=== PATIENT | female | born 1940 | race Hispanic/Latino ===

== ENCOUNTER 2020-01-27 01:25 | Emergency (ER) | payer MEDICARE, OTHER ==
[2020-01-27] MEDS ORDERED: SODIUM CHLORIDE 0.9% 500ML 500 ML IV ONE (02:28)
[2020-01-27 03:00] LABS: BASOPHILS % (AUTO) 0.2 % (0.0-5.0); EOSINOPHILS % (AUTO) 0.9 % (0.0-8.0); HEMATOCRIT 38.9 % (36-48); LYMPHOCYTES % (AUTO) 17.1 % (21.0-51.0); MEAN CORPUSCULAR HEMOGLOBIN 27.7 pg (27.0-33.0); MEAN CORPUSCULAR HGB CONC 32.6 g/dL (32.0-36.0); MEAN CORPUSCULAR VOLUME 84.9 fL (79-99); MONOCYTES % (AUTO) 9.1 % (3.0-13.0); NEUTROPHILS % (AUTO) 72.4 % (40.0-77.0); PLATELET COUNT (AUTO) 153 K/uL (130-400); RED BLOOD CELL COUNT(AUTO) 4.58 MIL/uL (4.00-5.50); RED CELL DISTRIBUTION WIDTH 14.2 % (11.0-15.5); WHITE BLOOD COUNT (AUTO) 12.7 K/uL (4.8-10.8)
[2020-01-27] MEDS ORDERED: ACETAMINOPHEN EXTRA STRENGTH 500 MG TABLET ONE (03:07)
[2020-01-27 03:17] LABS: CREATININE 1.4 mg/dL (0.5-1.5); POTASSIUM 3.4 mmol/L (3.5-5.1)
[2020-01-27 03:22] LABS: ALBUMIN 3.8 g/dL (3.5-5.0); BILIRUBIN,TOTAL 0.7 mg/dL (0.2-1.0); TOTAL PROTEIN, SERUM 7.7 g/dL (6.0-8.3)
[2020-01-27 03:36] LABS: B-TYPE NATRIURETIC PEPTIDE 826 pg/mL (0-100)
[2020-01-27 03:51] LABS: APPEARANCE,URINE SL CLOUDY (CLEAR); BILIRUBIN,URINE NEGATIVE (NEGATIVE); COLOR,URINE YELLOW (YELLOW); GLUCOSE, URINE (UA) NEGATIVE (NEGATIVE); KETONES,URINE 5 mg/dL (NEGATIVE); LEUKOCYTE ESTERASE ,URINE SMALL (NEGATIVE); NITRATE,URINE NEGATIVE (NEGATIVE); OCCULT BLOOD,URINE MODERATE (NEGATIVE); PH,URINE 5.5 (5.0-8.0); PROTEIN,URINE TRACE mg/dL (NEGATIVE); UROBILINOGEN,URINE 0.2 mg/dL (0.2-1.0)
[2020-01-27 04:12] LABS: BACTERIA,URINE Few /HPF (None Seen); RBC,URINE 0-1 /HPF (0-1)
[2020-01-27 04:38] LABS: INR 0.96 (0.85-1.15); PARTIAL THROMBOPLASTIN TIME 31.1 SEC (26.3-35.5); PROTHROMBIN TIME 10.4 SEC (9.6-11.6)
== END 2020-01-27 05:13 | disposition home or self-care (01) ==
LOC: EDH 01:25
DX: U07.1 COVID-19 (principal); R50.9 Fever, unspecified; I10 Essential (primary) hypertension
CPT/HCPCS: 36415; 71045; 80053; 81001; 82550; 83605; 83690; 83880; 84484; 85025; 85610; 85730; 87040; 87486; 87581; 87633; 87635; 87798; 87804 ×2; 93005; 99285; J7040

== ENCOUNTER 2020-02-02 17:36 | Inpatient (IN) | payer MEDICARE ==
[~2020-02-02] VITALS: Ht 160 cm; Wt 65.2 kg
[2020-02-02 18:15] LABS: BASOPHILS % (AUTO) 0.2 % (0.0-5.0); EOSINOPHILS % (AUTO) 0.1 % (0.0-8.0); HEMATOCRIT 34.4 % (36-48); LYMPHOCYTES % (AUTO) 8.1 % (21.0-51.0); MEAN CORPUSCULAR HEMOGLOBIN 28.6 pg (27.0-33.0); MEAN CORPUSCULAR HGB CONC 33.1 g/dL (32.0-36.0); MEAN CORPUSCULAR VOLUME 86.2 fL (79-99); MONOCYTES % (AUTO) 2.6 % (3.0-13.0); NEUTROPHILS % (AUTO) 87.5 % (40.0-77.0); NUCLEATED RED BLOOD CELLS 0.1 % (0.0-0.19); PLATELET COUNT (AUTO) 238 K/uL (130-400); RED BLOOD CELL COUNT(AUTO) 3.99 MIL/uL (4.00-5.50); RED CELL DISTRIBUTION WIDTH 14.8 % (11.0-15.5); WHITE BLOOD COUNT (AUTO) 18.8 K/uL (4.8-10.8)
[2020-02-02 18:28] LABS: APPEARANCE,URINE Clear (CLEAR); BILIRUBIN,URINE Negative (NEGATIVE); COLOR,URINE Dark Yellow (YELLOW); GLUCOSE, URINE (UA) Negative (NEGATIVE); KETONES,URINE Negative (NEGATIVE); LEUKOCYTE ESTERASE ,URINE Negative (NEGATIVE); NITRATE,URINE Negative (NEGATIVE); OCCULT BLOOD,URINE Trace (NEGATIVE); PROTEIN,URINE POS 2+ mg/dL (NEGATIVE)
[2020-02-02 18:39] LABS: CREATININE 1.9 mg/dL (0.5-1.5); POTASSIUM 3.3 mmol/L (3.5-5.1)
[2020-02-02 18:42] LABS: B-TYPE NATRIURETIC PEPTIDE 2410 pg/mL (0-100)
[2020-02-02 18:44] LABS: BACTERIA,URINE Few /HPF (None Seen); MUCUS,URINE Few LPF (None Seen); SQUAMOUS EPITHELIAL CELL,UR Few /HPF (0-2); WBC,URINE 0-1 /HPF (0-1)
[2020-02-02 18:50] LABS: RAPID GROUP A STREP NEGATIVE (NEGATIVE)
[2020-02-02 18:52] LABS: ALBUMIN 2.3 g/dL (3.5-5.0); BILIRUBIN,TOTAL 1.2 mg/dL (0.2-1.0); TOTAL PROTEIN, SERUM 7.1 g/dL (6.0-8.3)
[2020-02-02] MEDS ORDERED: ALBUTEROL INHALER 90MCG/INH IH PRN (19:45)
[2020-02-02] MEDS ORDERED: POTASSIUM CHLORIDE 20 MEQ ERTAB PO SCH (19:45)
[2020-02-02] MEDS ORDERED: ONDANSETRON HCL 4 MG/2 ML VIAL IV PRN (20:00)
[2020-02-02] MEDS ORDERED: DIPHENHYDRAMINE HCL 25 MG CAPSULE PO PRN (20:00)
[2020-02-02] MEDS: AZITHROMYCIN 500MG+NS 250ML 250 ML IV SCH (20:00)
[2020-02-02] MEDS ORDERED: DEXAMETHASONE 10MG/ML 1ML VIAL 6 MG in SODIUM CHLORIDE 0.9% 50 ML IV SCH (20:00)
[2020-02-02] MEDS ORDERED: ACETAMINOPHEN 325 MG TAB PO PRN ×2 (20:00)
[2020-02-02] MEDS ORDERED: NITROGLYCERIN 0.4 MG SL TAB SL PRN (20:00)
[2020-02-02 20:06] LABS: MAGNESIUM 2.8 mg/dL (1.80-2.40)
[2020-02-02 20:07] LABS: FIBRINOGEN 663 mg/dL (180-350); INR 0.95 (0.85-1.15); PROTHROMBIN TIME 10.3 SEC (9.6-11.6)
[2020-02-02] MEDS ORDERED: ASPIRIN 325MG EC TAB 325 MG TABLET.DR PO SCH (20:15)
[2020-02-02 20:39] LABS: ABG BASE EXCESS 1.3 mmol/L (-2.0-3.0); ABG HCO3 24.6 mmol/L (21.0-28.0); ABG OXYGEN SATURATION 88.8 % (95.0-99.0); ABG PCO2 35 mmHg (32-45)
[2020-02-02 20:40] LABS: CRP QUANTITATIVE 346.4 mg/L (0.00-9.0)
[2020-02-02 20:41] LABS: TROPONIN I 0.08 ng/mL (0.00-0.06)
[2020-02-02] MEDS: ZOSYN 3.375GM+NS 50ML 50 ML IV SCH (21:00)
[2020-02-02] MEDS: HEPARIN SODIUM 5000UNIT/ML 1ML VIAL SQ SCH (21:00)
[2020-02-02 21:08] LABS: D-DIMER > 10000 ng/mL (0-500)
[2020-02-02] MEDS ORDERED: 1/2 NORMAL SALINE 1,000 ML IV SCH (22:00)
[2020-02-02 23:21] LABS: TROPONIN I 0.04 ng/mL (0.00-0.06)
[2020-02-02] MEDS ORDERED: ALBUTEROL INHALER 90MCG/INH IH ONE (23:30)
[2020-02-03] MEDS ORDERED: DEXAMETHASONE 4 MG TAB PO SCH (02:15)
[2020-02-03 07:46] LABS: HEMATOCRIT 33.6 % (36-48); MEAN CORPUSCULAR HEMOGLOBIN 30.4 pg (27.0-33.0); MEAN CORPUSCULAR HGB CONC 34.5 g/dL (32.0-36.0); MEAN CORPUSCULAR VOLUME 88.2 fL (79-99); NUCLEATED RED BLOOD CELLS 0.2 % (0.0-0.19); PLATELET COUNT (AUTO) 248 K/uL (130-400); RED BLOOD CELL COUNT(AUTO) 3.81 MIL/uL (4.00-5.50); RED CELL DISTRIBUTION WIDTH 15.2 % (11.0-15.5); WHITE BLOOD COUNT (AUTO) 20.8 K/uL (4.8-10.8)
[2020-02-03 08:17] LABS: CREATINE KINASE, TOTAL 381 U/L (21-232)
[2020-02-03 08:22] LABS: ALANINE AMINOTRANSFERASE 86 U/L (12-78); ALBUMIN 2.1 g/dL (3.5-5.0); ASPARTATE AMINOTRANSFERASE 106 U/L (10-37); BILIRUBIN,TOTAL 1.4 mg/dL (0.2-1.0); CARBON DIOXIDE 29 mmol/L (21-32); CHLORIDE 111 mmol/L (101-111); CREATININE 1.5 mg/dL (0.5-1.5); GLOMERULAR FILTR. RATE CALC 36 mL/min (>60); GLUCOSE,RANDOM 150 mg/dL (70-105); LACTATE DEHYDROGENASE 632 U/L (81-234); MYOGLOBIN 200 ng/mL (10-92); POTASSIUM 3.4 mmol/L (3.5-5.1); SODIUM SERUM 149 mmol/L (136-145); TOTAL PROTEIN, SERUM 7.1 g/dL (6.0-8.3); TROPONIN I < 0.04 ng/mL (0.00-0.06); UREA NITROGEN, BLOOD 44 mg/dL (7-18)
[2020-02-03 08:29] LABS: LYMPHOCYTES % (MANUAL) 11 % (22-44); MAN.DIFF COMMENT-IMPRESSION MANUAL DIFFERENTIAL; MONOCYTES % (MANUAL) 2 % (2-9); SEGMENTED NEUTROPHILS % 87 % (40-70)
[2020-02-03 08:30] LABS: PLATELET MORPHOLOGY COMMENT ADEQUATE
[2020-02-03] MEDS ORDERED: HEPARIN SODIUM 5000UNIT/ML 1ML VIAL ONE (08:54)
[2020-02-03] MEDS ORDERED: ACETAMINOPHEN 325 MG TAB ONE (08:54)
[2020-02-03] MEDS ORDERED: PANTOPRAZOLE SODIUM 40 MG TABLET.DR ONE (08:54)
[2020-02-03] MEDS ORDERED: 1/2 NORMAL SALINE 1,000 ML IV ONE (08:55)
[2020-02-03] MEDS: ZOSYN 3.375GM+NS 50ML 50 ML IV SCH ×2 (09:00→20:54)
[2020-02-03] MEDS: HEPARIN SODIUM 5000UNIT/ML 1ML VIAL SQ SCH ×3 (09:00→20:55)
[2020-02-03] MEDS: PANTOPRAZOLE SODIUM 40 MG TABLET.DR PO SCH (09:00)
[2020-02-03] MEDS: ASPIRIN 81MG TAB.CHEW PO SCH (09:00)
[2020-02-03] MEDS ORDERED: ASPIRIN 81MG TAB.CHEW ONE (10:18)
[2020-02-03] MEDS ORDERED: DEXAMETHASONE SOD PHOSPHATE 10MG/ML 1ML VIAL ONE (10:19)
[2020-02-03] MEDS ORDERED: ZOSYN 3.375GM+NS 50ML 50 ML IV ONE (10:19)
[2020-02-03] MEDS ORDERED: AZITHROMYCIN 500MG+NS 250ML 250 ML IV ONE (10:19)
--- NOTE | 2020-02-03 11:03 | NUR ---
DCP: HOME with SON Fletcher unable to speak to pt who is in ER covid unit. Pt's son Zeus Omer [phone] provided information on pt. Per son, pt lives independently at home with him. Prior to admit pt was very active, drives, uses no DME or in home care services. PCP is Kayla Mendez. Pt's son visited from [place] and thought he had allergies and he turned out to be positive for covid. Both pt and son Zeus were exposed and also positive. DC plan is home with ivania Schulz. Addendum: 02/03/20 at 1108 by JUANA CHAVEZ Amended: Links added.
[2020-02-03] MEDS ORDERED: FUROSEMIDE 10 MG/ML 4ML VIAL IV SCH ×2 (17:30→17:45)
[2020-02-03] MEDS: METHYLPREDNISOLONE SOD SUCC 40MG/ML 1ML IVP SCH (18:29)
[2020-02-03] MEDS ORDERED: POTASSIUM CHLORIDE 20MEQ/100ML 100 ML IV PRN (19:00)
[2020-02-03] MEDS ORDERED: LIDOCAINE HCL-MPF 1% 2ML VIAL IV PRN (19:00)
[2020-02-03] MEDS ORDERED: POTASSIUM CHLORIDE 10% ELIXIR 20 MEQ/15 ML UDCUP PO PRN (19:00)
[2020-02-03 19:09] VITALS: BP 149/64
[2020-02-03] MEDS: AZITHROMYCIN 500MG+NS 250ML 250 ML IV SCH (20:00)
--- NOTE | 2020-02-03 20:00 | NUR ---
ASSESSMENT PT RESTING QUIETLY IN BED. S.O.B. AT REST, AAOX4. ASSESSMENT COMPLETED, SEE FLOW SHEET.
[2020-02-03 23:30] VITALS: BP 125/58
[2020-02-04] MEDS ORDERED: D3 PO (00:56)
[2020-02-04] MEDS ORDERED: MULT-1250 PO (00:56)
[2020-02-04] MEDS ORDERED: CYAN250014 PO (00:56)
[2020-02-04] MEDS ORDERED: AMLO5TAB9 PO (00:56)
[2020-02-04] MEDS ORDERED: ATOR10 PO (00:56)
[2020-02-04] MEDS ORDERED: FOLI0.8C PO (00:56)
[2020-02-04] MEDS ORDERED: CARV25TA PO (00:56)
[2020-02-04] MEDS ORDERED: FERR-82 PO (00:56)
[2020-02-04] MEDS: METHYLPREDNISOLONE SOD SUCC 40MG/ML 1ML IVP SCH (00:59)
[2020-02-04 03:08] VITALS: BP 130/60
[2020-02-04 04:47] LABS: BASOPHILS % (AUTO) 0.2 % (0.0-5.0); HEMATOCRIT 34.1 % (36-48); LYMPHOCYTES % (AUTO) 7.2 % (21.0-51.0); MEAN CORPUSCULAR HEMOGLOBIN 30.6 pg (27.0-33.0); MEAN CORPUSCULAR HGB CONC 34.6 g/dL (32.0-36.0); MEAN CORPUSCULAR VOLUME 88.6 fL (79-99); MONOCYTES % (AUTO) 1.8 % (3.0-13.0); NEUTROPHILS % (AUTO) 89.2 % (40.0-77.0); NUCLEATED RED BLOOD CELLS 0.1 % (0.0-0.19); PLATELET COUNT (AUTO) 274 K/uL (130-400); RED BLOOD CELL COUNT(AUTO) 3.85 MIL/uL (4.00-5.50); WHITE BLOOD COUNT (AUTO) 20.3 K/uL (4.8-10.8)
[2020-02-04 05:01] LABS: CREATININE 1.4 mg/dL (0.5-1.5)
[2020-02-04] MEDS ORDERED: RENAL DOSE IV PRN (08:15)
[2020-02-04] MEDS ORDERED: 1/2 NORMAL SALINE 1,000 ML IV SCH (08:30)
[2020-02-04 08:48] VITALS: BP 143/76
[2020-02-04] MEDS ORDERED: ENOXAPARIN SODIUM 1 MG/KG SQ SCH (09:00)
[2020-02-04] MEDS ORDERED: METHYLPREDNISOLONE SOD SUCC 40MG/ML 1ML IVP SCH (09:15)
[2020-02-04] MEDS: ZOSYN 3.375GM+NS 50ML 50 ML IV SCH (09:34)
[2020-02-04] MEDS: POTASSIUM CHLORIDE 20 MEQ ERTAB PO SCH (09:35)
[2020-02-04] MEDS: PANTOPRAZOLE SODIUM 40 MG TABLET.DR PO SCH (09:36)
[2020-02-04] MEDS: ASPIRIN 81MG TAB.CHEW PO SCH (09:36)
[2020-02-04] MEDS: ENOXAPARIN SODIUM 60 MG/0.6 ML SQ SCH ×2 (09:37→21:46)
--- NOTE | 2020-02-04 10:30 | NUR ---
DIAPER CHANGED, PLACED ON PRONE POSITION, PTS O2 SAT UP FROM 88% TO 95%. TOLERATING WITHOUT INCIDENT
[2020-02-04 12:05] VITALS: BP 142/68
[2020-02-04] MEDS: INSULIN HUMULIN R 100 UNIT/ML 3ML SQ SCH ×3 (12:10→21:49)
[2020-02-04] MEDS: METHYLPREDNISOLONE SOD SUCC 125MG/2ML VIAL IVP SCH ×2 (14:01→17:57)
[2020-02-04 16:20] VITALS: BP 133/91
[2020-02-04 19:56] VITALS: BP 128/56
[2020-02-04] MEDS: AZITHROMYCIN 500MG+NS 250ML 250 ML IV SCH (21:44)
[2020-02-05] VITALS (7 sets, daily range): BP systolic 124–150; BP diastolic 45–80
[2020-02-05] MEDS: METHYLPREDNISOLONE SOD SUCC 125MG/2ML VIAL IVP SCH ×5 (00:11→23:08)
[2020-02-05] MEDS: ZOSYN 3.375GM+NS 50ML 50 ML IV SCH ×3 (00:11→22:09)
[2020-02-05 05:14] LABS: BASOPHILS % (AUTO) 0.2 % (0.0-5.0); MEAN CORPUSCULAR HEMOGLOBIN 31.5 pg (27.0-33.0); MEAN CORPUSCULAR HGB CONC 35.5 g/dL (32.0-36.0); MEAN CORPUSCULAR VOLUME 88.8 fL (79-99); NEUTROPHILS % (AUTO) 87.7 % (40.0-77.0); NUCLEATED RED BLOOD CELLS 0.2 % (0.0-0.19); PLATELET COUNT (AUTO) 327 K/uL (130-400); RED BLOOD CELL COUNT(AUTO) 3.49 MIL/uL (4.00-5.50); RED CELL DISTRIBUTION WIDTH 14.8 % (11.0-15.5); WHITE BLOOD COUNT (AUTO) 19.1 K/uL (4.8-10.8)
[2020-02-05 05:32] LABS: BILIRUBIN,TOTAL 1.3 mg/dL (0.2-1.0); CREATININE 1.4 mg/dL (0.5-1.5); CRP QUANTITATIVE 154.8 mg/L (0.00-9.0); MAGNESIUM 2.6 mg/dL (1.80-2.40); POTASSIUM 3.6 mmol/L (3.5-5.1); TOTAL PROTEIN, SERUM 6.6 g/dL (6.0-8.3)
[2020-02-05] MEDS: INSULIN HUMULIN R 100 UNIT/ML 3ML SQ SCH ×4 (06:31→21:00)
[2020-02-05] MEDS: POTASSIUM CHLORIDE 20 MEQ ERTAB PO SCH (08:55)
[2020-02-05] MEDS: PANTOPRAZOLE SODIUM 40 MG TABLET.DR PO SCH (08:56)
[2020-02-05] MEDS: ASPIRIN 81MG TAB.CHEW PO SCH (08:56)
[2020-02-05] MEDS: ENOXAPARIN SODIUM 60 MG/0.6 ML SQ SCH ×2 (08:57→21:15)
[2020-02-05] MEDS ORDERED: PHARMACY COMMUNICATION MISC SCH ×3 (09:00→16:00)
--- NOTE | 2020-02-05 09:00 | NUR ---
ATE BREAKFAST AT 8 AM, THEN PLACED ON PRONE POSITION AT 0845. TOLERATING WITHOUT DISCOMFORT AT THIS TIME WITH INCREASED OXYGENATION LEVELS
[2020-02-05] MEDS: AZITHROMYCIN 500MG+NS 250ML 250 ML IV SCH (21:14)
--- NOTE | 2020-02-05 22:11 | NUR ---
TRANSFER PATIENT TRANSFERRED FROM ROOM 218 TO ROOM 220 VIA WHEELCHAIR. AAOX3 POSITIONED TO COMFORT IN BED. BREATHING REGULAR AND UNLABORED ON 4L NC. DENIES PAIN. NO ACUTE SIGNS OR SYMPTOMS OF DISTRESS NOTED. ORIENTED TO ROOM. CALL LIGHT IN REACH.
[2020-02-06] VITALS: BP 135/65
[2020-02-06 03:49] VITALS: BP 140/68
[2020-02-06] MEDS: INSULIN HUMULIN R 100 UNIT/ML 3ML SQ SCH ×4 (05:23→21:00)
[2020-02-06] MEDS: METHYLPREDNISOLONE SOD SUCC 125MG/2ML VIAL IVP SCH ×3 (05:23→17:28)
[2020-02-06 05:48] LABS: BASOPHILS % (AUTO) 0.2 % (0.0-5.0); HEMATOCRIT 29.5 % (36-48); LYMPHOCYTES % (AUTO) 8.6 % (21.0-51.0); MEAN CORPUSCULAR HEMOGLOBIN 34.2 pg (27.0-33.0); MEAN CORPUSCULAR HGB CONC 38.3 g/dL (32.0-36.0); MEAN CORPUSCULAR VOLUME 89.4 fL (79-99); MONOCYTES % (AUTO) 3.2 % (3.0-13.0); NEUTROPHILS % (AUTO) 86.9 % (40.0-77.0); NUCLEATED RED BLOOD CELLS 0.2 % (0.0-0.19); PLATELET COUNT (AUTO) 356 K/uL (130-400); RED CELL DISTRIBUTION WIDTH 14.6 % (11.0-15.5); WHITE BLOOD COUNT (AUTO) 12.4 K/uL (4.8-10.8)
--- NOTE | 2020-02-06 06:46 | NUR ---
patient stated she refused transfusion of plasma as she is scared to contract any diseases. Patient states " I have read that there is a possibility of getting infected like hiv" explained to the patient the benefits of transfusion but says she will refuse. will pass info to the am nurse
[2020-02-06 07:16] LABS: CREATININE 1.1 mg/dL (0.5-1.5); CRP QUANTITATIVE 72.6 mg/L (0.00-9.0); POTASSIUM 3.6 mmol/L (3.5-5.1)
[2020-02-06 07:53] VITALS: BP 128/78
[2020-02-06] MEDS: ZOSYN 3.375GM+NS 50ML 50 ML IV SCH ×2 (08:18→21:34)
[2020-02-06] MEDS: ASPIRIN 81MG TAB.CHEW PO SCH (08:20)
[2020-02-06] MEDS: PANTOPRAZOLE SODIUM 40 MG TABLET.DR PO SCH (08:20)
[2020-02-06] MEDS: AMLODIPINE BESYLATE 5 MG TAB PO SCH (08:20)
[2020-02-06] MEDS: CYANOCOBALAMIN 50 MCG PO SCH (08:21)
[2020-02-06] MEDS: FOLIC ACID 0.8 MG PO SCH (08:21)
[2020-02-06] MEDS: ENOXAPARIN SODIUM 60 MG/0.6 ML SQ SCH ×2 (08:21→21:36)
[2020-02-06 10:52] LABS: HEMOGLOBIN A1C 7.2 % (4.0-6.0)
[2020-02-06 11:33] VITALS: BP 128/68
[2020-02-06] MEDS: POTASSIUM CHLORIDE 20 MEQ ERTAB PO PRN ×2 (11:50→11:51)
[2020-02-06 17:21] VITALS: BP 137/75
[2020-02-06 20:00] VITALS: BP 139/75
[2020-02-06] MEDS: AZITHROMYCIN 500MG+NS 250ML 250 ML IV SCH (21:34)
[2020-02-07] VITALS: BP 122/68
[2020-02-07 04:00] VITALS: BP 124/69
[2020-02-07] MEDS: METHYLPREDNISOLONE SOD SUCC 125MG/2ML VIAL IVP SCH ×2 (04:27→10:24)
[2020-02-07 06:33] LABS: BASOPHILS % (AUTO) 0.1 % (0.0-5.0); HEMATOCRIT 29.8 % (36-48); LYMPHOCYTES % (AUTO) 7.8 % (21.0-51.0); MEAN CORPUSCULAR HEMOGLOBIN 29.8 pg (27.0-33.0); MEAN CORPUSCULAR HGB CONC 33.2 g/dL (32.0-36.0); MEAN CORPUSCULAR VOLUME 89.8 fL (79-99); MONOCYTES % (AUTO) 5.2 % (3.0-13.0); NEUTROPHILS % (AUTO) 86.2 % (40.0-77.0); PLATELET COUNT (AUTO) 369 K/uL (130-400); RED BLOOD CELL COUNT(AUTO) 3.32 MIL/uL (4.00-5.50); RED CELL DISTRIBUTION WIDTH 14.4 % (11.0-15.5); WHITE BLOOD COUNT (AUTO) 9.9 K/uL (4.8-10.8)
[2020-02-07 06:46] LABS: CREATININE 1.1 mg/dL (0.5-1.5); CRP QUANTITATIVE 41.8 mg/L (0.00-9.0); MAGNESIUM 2.6 mg/dL (1.80-2.40)
[2020-02-07] MEDS: INSULIN HUMULIN R 100 UNIT/ML 3ML SQ SCH ×4 (07:30→21:09)
[2020-02-07 08:26] VITALS: BP 142/75
[2020-02-07] MEDS: DEXTROSE 5%-WATER 1,000 ML IV SCH ×2 (09:00→22:39)
[2020-02-07] MEDS: FOLIC ACID 0.8 MG PO SCH ×2 (09:00→10:30)
[2020-02-07] MEDS: CYANOCOBALAMIN 50 MCG PO SCH ×2 (09:00→10:30)
[2020-02-07] MEDS: POTASSIUM CHLORIDE 20 MEQ ERTAB PO SCH (09:15)
[2020-02-07] MEDS: POTASSIUM CHLORIDE 20 MEQ ERTAB PO PRN (10:25)
[2020-02-07] MEDS: ENOXAPARIN SODIUM 60 MG/0.6 ML SQ SCH ×2 (10:27→20:24)
[2020-02-07] MEDS: ZOSYN 3.375GM+NS 50ML 50 ML IV SCH ×2 (10:27→22:39)
[2020-02-07] MEDS: AMLODIPINE BESYLATE 5 MG TAB PO SCH (10:28)
[2020-02-07] MEDS: PANTOPRAZOLE SODIUM 40 MG TABLET.DR PO SCH (10:28)
[2020-02-07] MEDS: ASPIRIN 81MG TAB.CHEW PO SCH (10:28)
[2020-02-07 12:51] VITALS: BP 140/80
[2020-02-07 14:56] LABS: APPEARANCE,URINE Clear (CLEAR); BILIRUBIN,URINE Negative (NEGATIVE); COLOR,URINE Yellow (YELLOW); GLUCOSE, URINE (UA) Negative (NEGATIVE); KETONES,URINE Negative (NEGATIVE); LEUKOCYTE ESTERASE ,URINE Negative (NEGATIVE); NITRATE,URINE Negative (NEGATIVE); OCCULT BLOOD,URINE Negative (NEGATIVE); PH,URINE 5.5 (5.0-8.0); PROTEIN,URINE Negative (NEGATIVE)
[2020-02-07 14:59] LABS: CREATININE,URINE RANDOM 47 mg/dL (30-135); SODIUM,URINE RANDOM 26 mmol/l (40-220)
[2020-02-07 15:44] VITALS: BP 130/62
[2020-02-07] MEDS: AZITHROMYCIN 500MG+NS 250ML 250 ML IV SCH (20:14)
[2020-02-07] MEDS: METHYLPREDNISOLONE SOD SUCC 40MG/ML 1ML IVP SCH (20:16)
[2020-02-07 21:00] VITALS: BP 145/72
[2020-02-08 00:48] VITALS: BP 132/76
[2020-02-08 04:47] VITALS: BP 146/70
[2020-02-08] MEDS: INSULIN HUMULIN R 100 UNIT/ML 3ML SQ SCH ×4 (05:58→21:00)
[2020-02-08 07:38] LABS: MAGNESIUM 2.5 mg/dL (1.80-2.40); PHOSPHORUS 2.5 mg/dL (2.5-4.9); POTASSIUM 3.6 mmol/L (3.5-5.1); URIC ACID 2.4 mg/dL (2.6-7.2)
[2020-02-08 08:00] VITALS: BP 142/76
[2020-02-08 08:13] LABS: CRP QUANTITATIVE 24.8 mg/L (0.00-9.0)
--- NOTE | 2020-02-08 08:30 | NUR ---
ASSESSMENT ENCOUNTERED PT ASLEEP BUT AROUSEABLE, A&OX3, CALM COOPERATIVE AND DOES NOT APPEAR TO BE IN ANY DISTRESS NOR ANY NEURO DEFICITS PRESENT. PT DENIES PAIN, SOB, NAUSEA. PT ON 2LNC WITH 88% O2 SATS, INCREASED TO 4LNC HUMIDIFIED AND SATS 91% AT REST. PT IS ABLE TO TOLERATE FOODS, FLUIDS AND MEDICATION WITH NO THROAT CLEARING OR COUGH. CALL LIGHT WITHIN REACH.
[2020-02-08] MEDS: FOLIC ACID 0.8 MG PO SCH (09:00)
[2020-02-08] MEDS: CYANOCOBALAMIN 50 MCG PO SCH (09:00)
[2020-02-08] MEDS: POTASSIUM CHLORIDE 20 MEQ ERTAB PO SCH (09:15)
[2020-02-08] MEDS: ASPIRIN 81MG TAB.CHEW PO SCH (09:48)
[2020-02-08] MEDS: METHYLPREDNISOLONE SOD SUCC 40MG/ML 1ML IVP SCH ×2 (09:48→22:01)
[2020-02-08] MEDS: ZOSYN 3.375GM+NS 50ML 50 ML IV SCH ×2 (09:48→22:01)
[2020-02-08] MEDS: AMLODIPINE BESYLATE 5 MG TAB PO SCH (09:49)
[2020-02-08] MEDS: ENOXAPARIN SODIUM 60 MG/0.6 ML SQ SCH ×2 (09:49→22:02)
[2020-02-08] MEDS: ASCORBIC ACID 500 MG TAB PO SCH (09:49)
[2020-02-08] MEDS: PANTOPRAZOLE SODIUM 40 MG TABLET.DR PO SCH (09:49)
[2020-02-08 12:00] VITALS: BP 147/77
[2020-02-08] MEDS: DEXTROSE 5%-WATER 1,000 ML IV SCH (12:08)
[2020-02-08 16:00] VITALS: BP 141/81
[2020-02-08] MEDS: AZITHROMYCIN 500MG+NS 250ML 250 ML IV SCH (19:25)
[2020-02-08 20:14] VITALS: BP 125/72
[2020-02-09 01:10] VITALS: BP 131/79
[2020-02-09 04:12] VITALS: BP 133/64
[2020-02-09] MEDS: INSULIN HUMULIN R 100 UNIT/ML 3ML SQ SCH ×4 (06:43→21:46)
[2020-02-09 07:09] LABS: BASOPHILS % (AUTO) 0.1 % (0.0-5.0); EOSINOPHILS % (AUTO) 0.6 % (0.0-8.0); HEMATOCRIT 29.3 % (36-48); LYMPHOCYTES % (AUTO) 12.8 % (21.0-51.0); MEAN CORPUSCULAR HEMOGLOBIN 28.4 pg (27.0-33.0); MEAN CORPUSCULAR HGB CONC 31.4 g/dL (32.0-36.0); MEAN CORPUSCULAR VOLUME 90.4 fL (79-99); MONOCYTES % (AUTO) 4.6 % (3.0-13.0); NUCLEATED RED BLOOD CELLS 0.2 % (0.0-0.19); PLATELET COUNT (AUTO) 319 K/uL (130-400); RED BLOOD CELL COUNT(AUTO) 3.24 MIL/uL (4.00-5.50); WHITE BLOOD COUNT (AUTO) 10.3 K/uL (4.8-10.8)
[2020-02-09 07:58] VITALS: BP 143/67
[2020-02-09 07:59] LABS: BILIRUBIN,DIRECT 0.3 mg/dL (0.0-0.3); BILIRUBIN,TOTAL 0.8 mg/dL (0.2-1.0); CREATININE 0.8 mg/dL (0.5-1.5); CRP QUANTITATIVE 16.3 mg/L (0.00-9.0); MAGNESIUM 2.3 mg/dL (1.80-2.40); POTASSIUM 3.3 mmol/L (3.5-5.1); TOTAL PROTEIN, SERUM 5.2 g/dL (6.0-8.3)
--- NOTE | 2020-02-09 08:10 | NUR ---
Assisted pt with brushing teeth this morning. No s/s of distress. No complaints of pain at this time. Addendum: 02/09/20 at 0810 by MARK SINGLETON RN RN Amended: Links added.
[2020-02-09] MEDS: CYANOCOBALAMIN 50 MCG PO SCH (09:00)
[2020-02-09] MEDS: FOLIC ACID 0.8 MG PO SCH (09:00)
[2020-02-09] MEDS ORDERED: DEXAMETHASONE 4 MG TAB PO SCH ×2 (09:00→09:49)
[2020-02-09] MEDS: ENOXAPARIN SODIUM 60 MG/0.6 ML SQ SCH ×2 (09:27→20:36)
[2020-02-09] MEDS: ASPIRIN 81MG TAB.CHEW PO SCH (09:31)
[2020-02-09] MEDS: ZOSYN 3.375GM+NS 50ML 50 ML IV SCH ×2 (09:31→20:35)
[2020-02-09] MEDS: PANTOPRAZOLE SODIUM 40 MG TABLET.DR PO SCH (09:31)
[2020-02-09] MEDS: AMLODIPINE BESYLATE 5 MG TAB PO SCH (09:31)
[2020-02-09] MEDS: POTASSIUM CHLORIDE 20 MEQ ERTAB PO SCH (09:35)
[2020-02-09] MEDS: ASCORBIC ACID 500 MG TAB PO SCH (09:44)
[2020-02-09 11:41] VITALS: BP 110/54
[2020-02-09 15:32] VITALS: BP 109/67
--- NOTE | 2020-02-09 17:06 | NUR ---
Pt OOB for dinner. Oxygen 93% on 2lpm NC, sat at side of bed x1 minute 92%, pt dizzy upon standing, oxygen remain at 92%. When pt move to chair oxygen drop to 85%. Placed pt on 3LPM NC sating at 93%. Will reassess oxygen sats. Call light within reach. Informed pt to call if feeling SOB or needing assistance.
--- NOTE | 2020-02-09 18:38 | NUR ---
Assisted pt to bathroom. Oxygen 93% sitting with and without oxygen. Walked pt to the bathroom, pt had BM and returned to chair at bedside. Pt oxygen 85% upon return placed on 3lpm and oxygen increased 93%. Pt in chair with call light within reach. Will continue to monitor.
[2020-02-09 20:53] VITALS: BP 108/50
[2020-02-10] VITALS (7 sets, daily range): BP systolic 105–141; BP diastolic 55–67
[2020-02-10 06:17] LABS: BASOPHILS % (AUTO) 0.1 % (0.0-5.0); EOSINOPHILS % (AUTO) 1.3 % (0.0-8.0); HEMATOCRIT 26.9 % (36-48); LYMPHOCYTES % (AUTO) 16.4 % (21.0-51.0); MEAN CORPUSCULAR HEMOGLOBIN 27.6 pg (27.0-33.0); MEAN CORPUSCULAR HGB CONC 31.6 g/dL (32.0-36.0); MEAN CORPUSCULAR VOLUME 87.3 fL (79-99); MONOCYTES % (AUTO) 4.4 % (3.0-13.0); PLATELET COUNT (AUTO) 306 K/uL (130-400); RED BLOOD CELL COUNT(AUTO) 3.08 MIL/uL (4.00-5.50); RED CELL DISTRIBUTION WIDTH 14.1 % (11.0-15.5); WHITE BLOOD COUNT (AUTO) 8.4 K/uL (4.8-10.8)
[2020-02-10] MEDS: INSULIN HUMULIN R 100 UNIT/ML 3ML SQ SCH ×4 (06:23→21:00)
[2020-02-10 06:40] LABS: CREATININE 0.8 mg/dL (0.5-1.5); POTASSIUM 3.8 mmol/L (3.5-5.1)
[2020-02-10] MEDS: AMLODIPINE BESYLATE 5 MG TAB PO SCH (08:32)
[2020-02-10] MEDS: ENOXAPARIN SODIUM 60 MG/0.6 ML SQ SCH ×2 (08:32→20:39)
[2020-02-10] MEDS: ASCORBIC ACID 500 MG TAB PO SCH (08:32)
[2020-02-10] MEDS: DEXAMETHASONE 4 MG TAB PO SCH (08:32)
[2020-02-10] MEDS: FOLIC ACID 0.8 MG PO SCH (08:33)
[2020-02-10] MEDS: ASPIRIN 81MG TAB.CHEW PO SCH (08:33)
[2020-02-10] MEDS: PANTOPRAZOLE SODIUM 40 MG TABLET.DR PO SCH (08:33)
[2020-02-10] MEDS: CYANOCOBALAMIN 50 MCG PO SCH (08:33)
[2020-02-10] MEDS: ZOSYN 3.375GM+NS 50ML 50 ML IV SCH ×2 (08:39→20:39)
[2020-02-10] MEDS: POTASSIUM CHLORIDE 20 MEQ ERTAB PO SCH (09:15)
[2020-02-10] MEDS ORDERED: COMPOUND IV MISC 1 EACH IVSOLN MISC PRN (13:45)
[2020-02-11 03:37] VITALS: BP 119/57
[2020-02-11 05:59] LABS: BASOPHILS % (AUTO) 0.1 % (0.0-5.0); EOSINOPHILS % (AUTO) 1.3 % (0.0-8.0); HEMATOCRIT 26.6 % (36-48); LYMPHOCYTES % (AUTO) 15.6 % (21.0-51.0); MEAN CORPUSCULAR HGB CONC 32.3 g/dL (32.0-36.0); MEAN CORPUSCULAR VOLUME 86.6 fL (79-99); MONOCYTES % (AUTO) 5.6 % (3.0-13.0); NEUTROPHILS % (AUTO) 75.4 % (40.0-77.0); PLATELET COUNT (AUTO) 303 K/uL (130-400); RED BLOOD CELL COUNT(AUTO) 3.07 MIL/uL (4.00-5.50); RED CELL DISTRIBUTION WIDTH 14.1 % (11.0-15.5); WHITE BLOOD COUNT (AUTO) 8.8 K/uL (4.8-10.8)
[2020-02-11 06:18] LABS: ALBUMIN 1.9 g/dL (3.5-5.0); BILIRUBIN,TOTAL 0.5 mg/dL (0.2-1.0); CREATININE 0.9 mg/dL (0.5-1.5); CRP QUANTITATIVE 27.2 mg/L (0.00-9.0); PHOSPHORUS 3.1 mg/dL (2.5-4.9); POTASSIUM 3.6 mmol/L (3.5-5.1); TOTAL PROTEIN, SERUM 5.1 g/dL (6.0-8.3)
[2020-02-11] MEDS: INSULIN HUMULIN R 100 UNIT/ML 3ML SQ SCH ×4 (06:21→21:00)
[2020-02-11 08:00] VITALS: BP 123/51
[2020-02-11] MEDS: IRON SUCROSE COMPLEX 300 MG in SODIUM CHLORIDE 0.9% 250 ML IV SCH (08:32)
[2020-02-11] MEDS: ZOSYN 3.375GM+NS 50ML 50 ML IV SCH ×2 (08:32→20:17)
[2020-02-11] MEDS: ENOXAPARIN SODIUM 60 MG/0.6 ML SQ SCH ×2 (08:33→20:18)
[2020-02-11] MEDS: ASPIRIN 81MG TAB.CHEW PO SCH (08:33)
[2020-02-11] MEDS: ASCORBIC ACID 500 MG TAB PO SCH (08:33)
[2020-02-11] MEDS: AMLODIPINE BESYLATE 5 MG TAB PO SCH (08:33)
[2020-02-11] MEDS: FOLIC ACID 0.8 MG PO SCH (08:34)
[2020-02-11] MEDS: CYANOCOBALAMIN 50 MCG PO SCH (08:34)
[2020-02-11] MEDS: DEXAMETHASONE 4 MG TAB PO SCH (08:34)
[2020-02-11] MEDS: PANTOPRAZOLE SODIUM 40 MG TABLET.DR PO SCH (08:35)
[2020-02-11] MEDS: POTASSIUM CHLORIDE 20 MEQ ERTAB PO SCH (08:35)
[2020-02-11] MEDS ORDERED: IRON SUCROSE COMPLEX 300 MG in SODIUM CHLORIDE 0.9% 50 ML IV SCH (09:00)
--- NOTE | 2020-02-11 11:42 | NUR ---
RDSCREEN - LOS X 9 Pt admitted with severe sepsis, COVID PNA, Acute Respiratory Failure. Pt currently tolerating 60gm CCD with no report of GI distress, Good PO intake at 100%. Pt with advanced age. Vitamin C in place. Recommend 60mL ProMod QD secondary to increased protein needs d/t COVID PNA. RD to continue to monitor. Please notify as additional nutrition concerns arise. Thank you.
[2020-02-11 11:57] VITALS: BP 120/53
--- NOTE | 2020-02-11 12:00 | NUR ---
Removed brennan. Pt. tolerated well. 10cc fluid removed from balloon. Will monitor for post void.
[2020-02-11 15:31] VITALS: BP 126/59
--- NOTE | 2020-02-11 16:42 | NUR ---
Educated pt on IS use. Instructed to use every hour [id number]. Pt returned demonstration and verbalized understanding.
--- NOTE | 2020-02-11 17:18 | NUR ---
Pt does not feel urge to void. Offered to assist pt to toilet pt refused. Will attempt to assist to toilet after dinner.
--- NOTE | 2020-02-11 18:00 | NUR ---
Pt voided 100cc. Continue to monitor I/O.
[2020-02-11 19:28] VITALS: BP 124/56
[2020-02-11 23:42] VITALS: BP 126/64
[2020-02-12 03:42] VITALS: BP 119/62
[2020-02-12 06:01] LABS: BASOPHILS % (AUTO) 0.2 % (0.0-5.0); EOSINOPHILS % (AUTO) 0.9 % (0.0-8.0); HEMATOCRIT 21.6 % (36-48); LYMPHOCYTES % (AUTO) 16.8 % (21.0-51.0); MEAN CORPUSCULAR HEMOGLOBIN 27.8 pg (27.0-33.0); MEAN CORPUSCULAR HGB CONC 31.9 g/dL (32.0-36.0); MEAN CORPUSCULAR VOLUME 87.1 fL (79-99); MONOCYTES % (AUTO) 6.2 % (3.0-13.0); NEUTROPHILS % (AUTO) 71.6 % (40.0-77.0); NUCLEATED RED BLOOD CELLS 0.7 % (0.0-0.19); PLATELET COUNT (AUTO) 355 K/uL (130-400); RED BLOOD CELL COUNT(AUTO) 2.48 MIL/uL (4.00-5.50); RED CELL DISTRIBUTION WIDTH 14.2 % (11.0-15.5); WHITE BLOOD COUNT (AUTO) 12.9 K/uL (4.8-10.8)
[2020-02-12] MEDS: INSULIN HUMULIN R 100 UNIT/ML 3ML SQ SCH ×4 (06:10→21:00)
[2020-02-12 06:23] LABS: CREATININE 0.9 mg/dL (0.5-1.5); CRP QUANTITATIVE 16.3 mg/L (0.00-9.0); POTASSIUM 3.6 mmol/L (3.5-5.1)
--- NOTE | 2020-02-12 06:38 | NUR ---
Critical Hgb of 6.9 reported to this nurse from Efra GARAY. Hospitalist group notified via telephone at [phone] at 0635. Spoke with Parul Del Rio states will pass lab information to Dr. Mcguire technology solutions architect. Awaiting return call at this time. Patient got up to void c/o difficulty breathing O2 increased to 4L tolerating well O2Sat at 94% at this time. Voided 200cc this shift. Will notify oncoming nurse. Will continue to monitor will continue to observe. No acute distress noted.
--- NOTE | 2020-02-12 08:23 | NUR ---
Called Dr. Valdez to report Hgb 6.9. No answer.
[2020-02-12 08:30] VITALS: BP 114/61
[2020-02-12] MEDS: IRON SUCROSE COMPLEX 300 MG in SODIUM CHLORIDE 0.9% 250 ML IV SCH (08:35)
[2020-02-12] MEDS: ZOSYN 3.375GM+NS 50ML 50 ML IV SCH (08:36)
[2020-02-12] MEDS: PANTOPRAZOLE SODIUM 40 MG TABLET.DR PO SCH (08:36)
[2020-02-12] MEDS: ENOXAPARIN SODIUM 60 MG/0.6 ML SQ SCH ×2 (08:36→21:00)
[2020-02-12] MEDS: AMLODIPINE BESYLATE 5 MG TAB PO SCH (08:37)
[2020-02-12] MEDS: ASCORBIC ACID 500 MG TAB PO SCH (08:37)
[2020-02-12] MEDS: DEXAMETHASONE 4 MG TAB PO SCH (08:37)
[2020-02-12] MEDS: ASPIRIN 81MG TAB.CHEW PO SCH (08:38)
[2020-02-12] MEDS: CYANOCOBALAMIN 50 MCG PO SCH (09:00)
[2020-02-12] MEDS: FOLIC ACID 0.8 MG PO SCH (09:00)
[2020-02-12] MEDS: POTASSIUM CHLORIDE 20 MEQ ERTAB PO SCH (09:15)
[2020-02-12 11:00] VITALS: BP 114/61
--- NOTE | 2020-02-12 11:47 | NUR ---
Covid swab collected. Passed to charge to transport to lab. Pt tolerated well.
--- NOTE | 2020-02-12 13:40 | NUR ---
Assess oxygen at 2lpm pt sating 88%. Increased to 8.5 sating 91% will continue to monitor.
--- NOTE | 2020-02-12 15:03 | NUR ---
Pt signed consent for blood transfusion as well as convalescent plasma. Notified MD José Miguel of consent, and informed to call Dr. Robb for order for plasma. Called MD Cezar no answer. Consent in chart.
[2020-02-12 16:00] VITALS: BP 119/60
[2020-02-12] MEDS ORDERED: SODIUM CHLORIDE 0.9% 500ML 500 ML IV ONE (16:07)
--- NOTE | 2020-02-12 17:00 | NUR ---
Blood transfusion start time 1620 pt tolerated well. No adverse reactions noted at this time. Running at 75ml/hr. Pt eating dinner. Call light at bedside informed pt to call if any adverse reactions noted. Will continue to monitor.
--- NOTE | 2020-02-12 18:56 | NUR ---
Pt ambulated to bathroom with tech, HR increased to 130's. Upon return pt sat in chair at bedside, transfusion running. Oxygen saturation 85% Placed back on NC 3 lpm increased oxygen to 90%. Tech and nurse assist pt back to bed. Reassessed after 10 minutes HR 103. 2.5lpm 95%. Educated pt to used bed rich for future due to exertion. Reported to TANISHA Cooper. Will continue to monitor.
--- NOTE | 2020-02-12 20:04 | NUR ---
bridge opener paged regarding scheduled Lovenox injection. Pt. currently tolerating blood tranfusion r/t low H&H which resulted this a.m.. Spoke with AJ hospitalist college admissions counselor who stated "ok" to hold injection this evening and recheck H&H once transfusion is complete. No active signs of bleeding at this time pt. tolerating blood transfusion without adverse side effects noted will continue to observe.
[2020-02-12 20:08] VITALS: BP 123/70
[2020-02-12 22:26] LABS: HEMATOCRIT 25.8 % (36-48)
[2020-02-13 00:38] VITALS: BP 102/66
[2020-02-13 04:06] VITALS: BP 122/63
[2020-02-13 05:57] LABS: BASOPHILS % (AUTO) 0.4 % (0.0-5.0); EOSINOPHILS % (AUTO) 0.5 % (0.0-8.0); HEMATOCRIT 25.1 % (36-48); LYMPHOCYTES % (AUTO) 22.5 % (21.0-51.0); MEAN CORPUSCULAR HEMOGLOBIN 28.3 pg (27.0-33.0); MEAN CORPUSCULAR HGB CONC 31.9 g/dL (32.0-36.0); MEAN CORPUSCULAR VOLUME 88.7 fL (79-99); MONOCYTES % (AUTO) 7.3 % (3.0-13.0); NEUTROPHILS % (AUTO) 63.8 % (40.0-77.0); NUCLEATED RED BLOOD CELLS 4.7 % (0.0-0.19); PLATELET COUNT (AUTO) 315 K/uL (130-400); RED BLOOD CELL COUNT(AUTO) 2.83 MIL/uL (4.00-5.50); RED CELL DISTRIBUTION WIDTH 14.9 % (11.0-15.5)
[2020-02-13 06:22] LABS: CREATININE 0.9 mg/dL (0.5-1.5); POTASSIUM 3.8 mmol/L (3.5-5.1)
[2020-02-13] MEDS: INSULIN HUMULIN R 100 UNIT/ML 3ML SQ SCH ×4 (06:57→20:05)
[2020-02-13 07:07] LABS: CRP QUANTITATIVE 11.9 mg/L (0.00-9.0)
[2020-02-13 08:00] VITALS: BP 125/62
[2020-02-13] MEDS: FOLIC ACID 0.8 MG PO SCH (09:00)
[2020-02-13] MEDS: CYANOCOBALAMIN 50 MCG PO SCH (09:00)
[2020-02-13] MEDS: IRON SUCROSE COMPLEX 300 MG in SODIUM CHLORIDE 0.9% 250 ML IV SCH (09:03)
[2020-02-13] MEDS: AMLODIPINE BESYLATE 5 MG TAB PO SCH (09:04)
[2020-02-13] MEDS: PANTOPRAZOLE SODIUM 40 MG TABLET.DR PO SCH (09:04)
[2020-02-13] MEDS: ASPIRIN 81MG TAB.CHEW PO SCH (09:04)
[2020-02-13] MEDS: ASCORBIC ACID 500 MG TAB PO SCH (09:04)
[2020-02-13] MEDS: DEXAMETHASONE 4 MG TAB PO SCH (09:04)
[2020-02-13] MEDS: POTASSIUM CHLORIDE 20 MEQ ERTAB PO SCH (09:15)
[2020-02-13 11:00] VITALS: BP 125/62
--- NOTE | 2020-02-13 12:00 | NUR ---
Pt voided in bed rich, went over bed. All linen changed.
--- NOTE | 2020-02-13 14:48 | NUR ---
DC PLAN CALLED PATIENT ROOM. SPOKE TO PATIENT. DISCUSSED DC PLAN. ORIGINALLY WANTED TO GO HOME. STILL ON 2L NC AND AMBULATED 10FT WITH PT. GAVE OPTION OF [facility]. SAID NEEDS TO THINK ABOUT IT AND TALK TO FAMILY. Addendum: 02/13/20 at 1451 by LYNN SCHULZ RN CM Amended: Links added.
[2020-02-13 16:00] VITALS: BP 127/62
[2020-02-13 20:00] VITALS: BP 133/57
[2020-02-14] VITALS: BP 111/55
[2020-02-14 04:00] VITALS: BP 127/49
[2020-02-14] MEDS: INSULIN HUMULIN R 100 UNIT/ML 3ML SQ SCH ×4 (06:54→20:43)
[2020-02-14 07:05] LABS: BASOPHILS % (AUTO) 0.2 % (0.0-5.0); EOSINOPHILS % (AUTO) 0.3 % (0.0-8.0); HEMATOCRIT 23.4 % (36-48); LYMPHOCYTES % (AUTO) 22.2 % (21.0-51.0); MEAN CORPUSCULAR HEMOGLOBIN 28.4 pg (27.0-33.0); MEAN CORPUSCULAR HGB CONC 31.2 g/dL (32.0-36.0); MEAN CORPUSCULAR VOLUME 91.1 fL (79-99); MONOCYTES % (AUTO) 7.2 % (3.0-13.0); NEUTROPHILS % (AUTO) 63.6 % (40.0-77.0); NUCLEATED RED BLOOD CELLS 6.3 % (0.0-0.19); PLATELET COUNT (AUTO) 318 K/uL (130-400); RED BLOOD CELL COUNT(AUTO) 2.57 MIL/uL (4.00-5.50); WHITE BLOOD COUNT (AUTO) 12.4 K/uL (4.8-10.8)
[2020-02-14 08:00] VITALS: BP 126/72
[2020-02-14 08:17] LABS: ALBUMIN 2.2 g/dL (3.5-5.0); BILIRUBIN,TOTAL 0.5 mg/dL (0.2-1.0); CREATININE 0.8 mg/dL (0.5-1.5); CRP QUANTITATIVE 5.4 mg/L (0.00-9.0); POTASSIUM 3.8 mmol/L (3.5-5.1); TOTAL PROTEIN, SERUM 4.7 g/dL (6.0-8.3)
[2020-02-14 08:25] LABS: % IRON SATURATION 96.8 % (22-44)
[2020-02-14] MEDS: AMLODIPINE BESYLATE 5 MG TAB PO SCH (08:30)
[2020-02-14] MEDS: PANTOPRAZOLE SODIUM 40 MG TABLET.DR PO SCH (08:30)
[2020-02-14] MEDS: ASCORBIC ACID 500 MG TAB PO SCH (08:30)
[2020-02-14] MEDS: ASPIRIN 81MG TAB.CHEW PO SCH (08:30)
[2020-02-14] MEDS: DEXAMETHASONE 4 MG TAB PO SCH (08:31)
[2020-02-14] MEDS: FOLIC ACID 0.8 MG PO SCH (08:32)
[2020-02-14] MEDS: CYANOCOBALAMIN 50 MCG PO SCH (08:32)
[2020-02-14] MEDS: POTASSIUM CHLORIDE 20 MEQ ERTAB PO SCH (08:34)
[2020-02-14 08:54] LABS: BASOPHILS % (MANUAL) 1 % (0-2); LYMPHOCYTES % (MANUAL) 18 % (22-44); MAN.DIFF COMMENT-IMPRESSION MANUAL DIFFERENTIAL; MONOCYTES % (MANUAL) 5 % (2-9); PLATELET MORPHOLOGY COMMENT ADEQUATE; SEGMENTED NEUTROPHILS % 76 % (40-70)
[2020-02-14 11:00] VITALS: BP 110/54
[2020-02-14 16:00] VITALS: BP 111/55
[2020-02-14 20:00] VITALS: BP 118/59
[2020-02-15] VITALS (7 sets, daily range): BP systolic 109–123; BP diastolic 44–74
[2020-02-15 06:13] LABS: BASOPHILS % (AUTO) 0.2 % (0.0-5.0); EOSINOPHILS % (AUTO) 0.3 % (0.0-8.0); HEMATOCRIT 22.5 % (36-48); LYMPHOCYTES % (AUTO) 23.8 % (21.0-51.0); MEAN CORPUSCULAR HEMOGLOBIN 28.5 pg (27.0-33.0); MEAN CORPUSCULAR HGB CONC 31.6 g/dL (32.0-36.0); MEAN CORPUSCULAR VOLUME 90.4 fL (79-99); MONOCYTES % (AUTO) 6.8 % (3.0-13.0); NEUTROPHILS % (AUTO) 64.4 % (40.0-77.0); NUCLEATED RED BLOOD CELLS 3.5 % (0.0-0.19); PLATELET COUNT (AUTO) 307 K/uL (130-400); RED BLOOD CELL COUNT(AUTO) 2.49 MIL/uL (4.00-5.50); RED CELL DISTRIBUTION WIDTH 17.4 % (11.0-15.5); WHITE BLOOD COUNT (AUTO) 11.3 K/uL (4.8-10.8)
[2020-02-15] MEDS: INSULIN HUMULIN R 100 UNIT/ML 3ML SQ SCH ×4 (06:17→21:23)
[2020-02-15 06:30] LABS: ALBUMIN 2.1 g/dL (3.5-5.0); BILIRUBIN,TOTAL 0.4 mg/dL (0.2-1.0); CREATININE 0.8 mg/dL (0.5-1.5); CRP QUANTITATIVE 4.3 mg/L (0.00-9.0); POTASSIUM 3.6 mmol/L (3.5-5.1); TOTAL PROTEIN, SERUM 4.6 g/dL (6.0-8.3)
[2020-02-15] MEDS: FOLIC ACID 0.8 MG PO SCH (09:00)
[2020-02-15] MEDS: CYANOCOBALAMIN 50 MCG PO SCH (09:00)
[2020-02-15] MEDS: DEXAMETHASONE 4 MG TAB PO SCH (09:12)
[2020-02-15] MEDS: ASCORBIC ACID 500 MG TAB PO SCH (09:12)
[2020-02-15] MEDS: PANTOPRAZOLE SODIUM 40 MG TABLET.DR PO SCH (09:13)
[2020-02-15] MEDS: AMLODIPINE BESYLATE 5 MG TAB PO SCH (09:13)
[2020-02-15] MEDS: ASPIRIN 81MG TAB.CHEW PO SCH (09:13)
[2020-02-15] MEDS: POTASSIUM CHLORIDE 20 MEQ ERTAB PO SCH (09:14)
[2020-02-15] MEDS ORDERED: EPOETIN ALFA 10,000 UNIT/ML VIAL SQ SCH (11:45)
[2020-02-15] MEDS ORDERED: COMPOUND IV MISC 1 EACH IVSOLN MISC PRN (11:45)
[2020-02-15] MEDS: IRON SUCROSE COMPLEX 300 MG in SODIUM CHLORIDE 0.9% 100 ML IV SCH (12:34)
[2020-02-15] MEDS: METHYLPREDNISOLONE SOD SUCC 125MG/2ML VIAL IVP SCH ×2 (12:35→21:16)
--- NOTE | 2020-02-15 18:42 | NUR ---
Called lab to check the status of the plasma. Resent form from [facility] and was received by Kraig in blood bank. Kraig to return call with ETA of plasma. Will report to night nurse.
[2020-02-15] MEDS: APIXABAN 2.5 MG TABLET PO SCH (21:16)
[2020-02-16 03:47] VITALS: BP 124/71
[2020-02-16] MEDS: METHYLPREDNISOLONE SOD SUCC 125MG/2ML VIAL IVP SCH ×3 (04:08→20:47)
[2020-02-16] MEDS: INSULIN HUMULIN R 100 UNIT/ML 3ML SQ SCH ×4 (05:39→21:53)
[2020-02-16 05:54] LABS: BASOPHILS % (AUTO) 0.1 % (0.0-5.0); HEMATOCRIT 23.5 % (36-48); LYMPHOCYTES % (AUTO) 13.2 % (21.0-51.0); MEAN CORPUSCULAR HGB CONC 31.5 g/dL (32.0-36.0); MEAN CORPUSCULAR VOLUME 92.2 fL (79-99); MONOCYTES % (AUTO) 2.2 % (3.0-13.0); NEUTROPHILS % (AUTO) 80.5 % (40.0-77.0); NUCLEATED RED BLOOD CELLS 2.6 % (0.0-0.19); PLATELET COUNT (AUTO) 327 K/uL (130-400); RED BLOOD CELL COUNT(AUTO) 2.55 MIL/uL (4.00-5.50); RED CELL DISTRIBUTION WIDTH 18.9 % (11.0-15.5); WHITE BLOOD COUNT (AUTO) 11.8 K/uL (4.8-10.8)
[2020-02-16 06:09] LABS: CREATININE 0.7 mg/dL (0.5-1.5); CRP QUANTITATIVE 14.9 mg/L (0.00-9.0); MAGNESIUM 2.2 mg/dL (1.80-2.40); PHOSPHORUS 2.7 mg/dL (2.5-4.9); POTASSIUM 4.1 mmol/L (3.5-5.1)
[2020-02-16 07:00] VITALS: BP 125/91
[2020-02-16] MEDS: PANTOPRAZOLE SODIUM 40 MG TABLET.DR PO SCH (08:23)
[2020-02-16] MEDS: APIXABAN 2.5 MG TABLET PO SCH ×2 (08:23→20:47)
[2020-02-16] MEDS: ASCORBIC ACID 500 MG TAB PO SCH (08:23)
[2020-02-16] MEDS: AMLODIPINE BESYLATE 5 MG TAB PO SCH (08:23)
[2020-02-16] MEDS: ASPIRIN 81MG TAB.CHEW PO SCH (08:24)
[2020-02-16] MEDS: POTASSIUM CHLORIDE 20 MEQ ERTAB PO SCH (08:24)
[2020-02-16] MEDS: CYANOCOBALAMIN 50 MCG PO SCH (08:24)
[2020-02-16] MEDS: FOLIC ACID 0.8 MG PO SCH (08:24)
[2020-02-16] MEDS: IRON SUCROSE COMPLEX 300 MG in SODIUM CHLORIDE 0.9% 100 ML IV SCH (09:36)
[2020-02-16] MEDS ORDERED: SODIUM CHLORIDE 0.9% 500ML 500 ML IV ONE (10:52)
[2020-02-16 11:00] VITALS: BP 121/61
--- NOTE | 2020-02-16 11:34 | NUR ---
DC PLAN TRIED TO GET PATIENT TO MAKE DECISION REGARDING DC PLAN. STILL UNCERTAIN SAID CAN NOT MAKE DECISION TODAY. STILL FEELING BAD. EXPLAINED THAT WE WILL NEED TO RESWAB IN CASE PATIENT CHOOSES TO GO TO FACILITY. SAID THAT WAS OKAY. WEANING 02 AT 2L. Addendum: 02/16/20 at 1136 by LYNN SCHULZ RN CM Amended: Links added.
--- NOTE | 2020-02-16 13:02 | NUR ---
Called Dr. Valdez for Ddimer elevation from [phone] to [phone] no new orders received
--- NOTE | 2020-02-16 13:17 | NUR ---
Pt had BM this morning, tech forgot about stool collection. Will collect stool for occult on next BM.
[2020-02-16 16:00] VITALS: BP 114/54
[2020-02-16 20:24] VITALS: BP 113/60
[2020-02-17 00:18] VITALS: BP 118/58
[2020-02-17] MEDS: METHYLPREDNISOLONE SOD SUCC 125MG/2ML VIAL IVP SCH ×3 (03:47→17:45)
[2020-02-17 04:01] VITALS: BP 139/74
[2020-02-17 05:34] LABS: BASOPHILS % (AUTO) 0.1 % (0.0-5.0); HEMATOCRIT 22.3 % (36-48); LYMPHOCYTES % (AUTO) 9.7 % (21.0-51.0); MEAN CORPUSCULAR HGB CONC 32.3 g/dL (32.0-36.0); MEAN CORPUSCULAR VOLUME 92.9 fL (79-99); NEUTROPHILS % (AUTO) 84.7 % (40.0-77.0); PLATELET COUNT (AUTO) 313 K/uL (130-400); WHITE BLOOD COUNT (AUTO) 12.9 K/uL (4.8-10.8)
[2020-02-17] MEDS: INSULIN HUMULIN R 100 UNIT/ML 3ML SQ SCH ×4 (05:47→20:38)
[2020-02-17 05:48] LABS: ALBUMIN 2.3 g/dL (3.5-5.0); BILIRUBIN,TOTAL 0.5 mg/dL (0.2-1.0); CREATININE 0.7 mg/dL (0.5-1.5); CRP QUANTITATIVE 2.6 mg/L (0.00-9.0); POTASSIUM 4.1 mmol/L (3.5-5.1); TOTAL PROTEIN, SERUM 5.1 g/dL (6.0-8.3)
[2020-02-17] MEDS: CYANOCOBALAMIN 50 MCG PO SCH (07:40)
[2020-02-17] MEDS: FOLIC ACID 0.8 MG PO SCH (07:40)
[2020-02-17] MEDS: POTASSIUM CHLORIDE 20 MEQ ERTAB PO SCH (07:40)
[2020-02-17 08:30] VITALS: BP 124/62
[2020-02-17] MEDS: ASCORBIC ACID 500 MG TAB PO SCH (09:28)
[2020-02-17] MEDS: PANTOPRAZOLE SODIUM 40 MG TABLET.DR PO SCH (09:28)
[2020-02-17] MEDS: APIXABAN 2.5 MG TABLET PO SCH ×2 (09:28→21:09)
[2020-02-17] MEDS: AMLODIPINE BESYLATE 5 MG TAB PO SCH (09:28)
[2020-02-17] MEDS: IRON SUCROSE COMPLEX 300 MG in SODIUM CHLORIDE 0.9% 100 ML IV SCH (09:28)
[2020-02-17] MEDS: ASPIRIN 81MG TAB.CHEW PO SCH (09:28)
--- NOTE | 2020-02-17 10:31 | NUR ---
Encourage pt to lay prone. Pt tolerating well at this time. Will continue to monitor.
[2020-02-17 12:59] VITALS: BP 121/64
--- NOTE | 2020-02-17 16:04 | NUR ---
DC Plan Spoke to patient re: dcp. Requesting daughter Laina Trevino make decision. Discussed [facility] (due to COVID + status), [facility], and [facility]. Daughter wants home w/ HH and adult son Austen who just recovered from COVID. Laina conferenced called in Austen and Austen not comfortable with patient going home. Austen requesting [facility]. Daughter Laina Trevino in agreement. [facility]/Choice Letter given via telephone consent. Referral faxed with confirmation received. CM to continue to follow. [facility] is pending. CD Addendum: 02/17/20 at 1613 by MER ALAMO CM Amended: Links added.
[2020-02-17 16:13] VITALS: BP 131/68
--- NOTE | 2020-02-17 17:15 | NUR ---
Blood transfusion started at 1644. No adverse reactions noted after 15 minutes. Informed pt to call nurse if feeling SOB, heart racing, chills. Pt sitting at bedside with no s/s of distress noted. Call light within reach. Will continue to monitor.
[2020-02-17 19:39] VITALS: BP 124/72
[2020-02-18 00:10] VITALS: BP 127/74
[2020-02-18 04:57] VITALS: BP 125/65
[2020-02-18] MEDS: METHYLPREDNISOLONE SOD SUCC 125MG/2ML VIAL IVP SCH ×4 (05:02→21:52)
[2020-02-18 05:21] LABS: BASOPHILS % (AUTO) 0.2 % (0.0-5.0); HEMATOCRIT 27.7 % (36-48); LYMPHOCYTES % (AUTO) 11.3 % (21.0-51.0); MEAN CORPUSCULAR HEMOGLOBIN 29.5 pg (27.0-33.0); MEAN CORPUSCULAR HGB CONC 31.8 g/dL (32.0-36.0); MONOCYTES % (AUTO) 4.1 % (3.0-13.0); NEUTROPHILS % (AUTO) 81.8 % (40.0-77.0); NUCLEATED RED BLOOD CELLS 5.2 % (0.0-0.19); PLATELET COUNT (AUTO) 313 K/uL (130-400); RED BLOOD CELL COUNT(AUTO) 2.98 MIL/uL (4.00-5.50); RED CELL DISTRIBUTION WIDTH 20.9 % (11.0-15.5); WHITE BLOOD COUNT (AUTO) 12.7 K/uL (4.8-10.8)
[2020-02-18 05:39] LABS: LYMPHOCYTES % (MANUAL) 8 % (22-44); MAN.DIFF COMMENT-IMPRESSION MANUAL DIFFERENTIAL; MONOCYTES % (MANUAL) 5 % (2-9); MYELOCYTES % 1 % (0-0); SEGMENTED NEUTROPHILS % 86 % (40-70)
[2020-02-18 06:12] LABS: CREATININE 0.7 mg/dL (0.5-1.5); CRP QUANTITATIVE 3.6 mg/L (0.00-9.0)
[2020-02-18] MEDS: INSULIN HUMULIN R 100 UNIT/ML 3ML SQ SCH ×4 (06:26→21:51)
[2020-02-18 08:44] VITALS: BP 137/73
[2020-02-18] MEDS: CYANOCOBALAMIN 50 MCG PO SCH (09:00)
[2020-02-18] MEDS: FOLIC ACID 0.8 MG PO SCH (09:00)
[2020-02-18] MEDS: APIXABAN 2.5 MG TABLET PO SCH ×2 (09:02→21:17)
[2020-02-18] MEDS: POTASSIUM CHLORIDE 20 MEQ ERTAB PO SCH (09:02)
[2020-02-18] MEDS: PANTOPRAZOLE SODIUM 40 MG TABLET.DR PO SCH (09:02)
[2020-02-18] MEDS: AMLODIPINE BESYLATE 5 MG TAB PO SCH (09:02)
[2020-02-18] MEDS: ASCORBIC ACID 500 MG TAB PO SCH (09:03)
[2020-02-18 11:34] VITALS: BP 127/56
--- NOTE | 2020-02-18 14:01 | NUR ---
2nd return call to pt daughter. No answer.
[2020-02-18 16:06] VITALS: BP 135/63
--- NOTE | 2020-02-18 18:17 | NUR ---
Collected stool for occult testing. Sent to lab. Pt abd distended, pt denies any pain at this time. Will continue to monitor.
[2020-02-18 20:00] VITALS: BP 122/79
[2020-02-18] MEDS: PANTOPRAZOLE 40 MG/VIAL IVP SCH (21:16)
[2020-02-19] VITALS (7 sets, daily range): BP systolic 112–135; BP diastolic 56–69
--- NOTE | 2020-02-19 06:01 | NUR ---
Positive occult stool results called in to [facility] on-call for hospitalist group. Orders to consult GI. Dr. Sheriff consulted orders to give Protonix 40mg IVP BID and continue to monitor H&H. Will continue to observe.
[2020-02-19] MEDS: INSULIN HUMULIN R 100 UNIT/ML 3ML SQ SCH ×4 (06:46→21:43)
[2020-02-19 06:59] LABS: BASOPHILS % (AUTO) 0.1 % (0.0-5.0); HEMATOCRIT 28.2 % (36-48); LYMPHOCYTES % (AUTO) 11.3 % (21.0-51.0); MEAN CORPUSCULAR HEMOGLOBIN 29.6 pg (27.0-33.0); MEAN CORPUSCULAR HGB CONC 31.6 g/dL (32.0-36.0); MEAN CORPUSCULAR VOLUME 93.7 fL (79-99); MONOCYTES % (AUTO) 3.7 % (3.0-13.0); NEUTROPHILS % (AUTO) 83.5 % (40.0-77.0); NUCLEATED RED BLOOD CELLS 2.4 % (0.0-0.19); PLATELET COUNT (AUTO) 268 K/uL (130-400); RED BLOOD CELL COUNT(AUTO) 3.01 MIL/uL (4.00-5.50); RED CELL DISTRIBUTION WIDTH 21.5 % (11.0-15.5); WHITE BLOOD COUNT (AUTO) 9.7 K/uL (4.8-10.8)
[2020-02-19 07:03] LABS: CREATININE 0.7 mg/dL (0.5-1.5); CRP QUANTITATIVE 3.8 mg/L (0.00-9.0); POTASSIUM 4.1 mmol/L (3.5-5.1)
[2020-02-19] MEDS: FOLIC ACID 0.8 MG PO SCH (07:32)
[2020-02-19] MEDS: POTASSIUM CHLORIDE 20 MEQ ERTAB PO SCH (07:32)
[2020-02-19] MEDS: CYANOCOBALAMIN 50 MCG PO SCH (07:32)
[2020-02-19] MEDS: AMLODIPINE BESYLATE 5 MG TAB PO SCH (09:05)
[2020-02-19] MEDS: ASCORBIC ACID 500 MG TAB PO SCH (09:05)
[2020-02-19] MEDS: APIXABAN 2.5 MG TABLET PO SCH ×2 (09:05→21:42)
[2020-02-19] MEDS: PANTOPRAZOLE 40 MG/VIAL IVP SCH ×2 (09:05→21:42)
[2020-02-19] MEDS: METHYLPREDNISOLONE SOD SUCC 125MG/2ML VIAL IVP SCH ×2 (11:55→17:51)
--- NOTE | 2020-02-19 13:03 | NUR ---
Change in SNF Spoke to Ashly with [facility] who informed that [facility] not [facility], but [facility]. [facility] is able to route patient's information to their sister facility. Spoke to Austen Omer who stated okay to send to [facility]. Stated, "That's a good place". to follow up with [facility] for approval. Addendum: 02/19/20 at 1304 by MER ALAMO Amended: Links added.
--- NOTE | 2020-02-19 15:00 | NUR ---
Returned call to pt daughter. Daughter would like for case coordinator to f/u on pt placement. Informed case coordinator Afia and provided with pt number.
--- NOTE | 2020-02-19 17:00 | NUR ---
Assisted pt to chair at bedside for dinner. Call light within reach. Will continue to monitor.
[2020-02-20 03:19] VITALS: BP 119/62
[2020-02-20] MEDS: METHYLPREDNISOLONE SOD SUCC 125MG/2ML VIAL IVP SCH ×3 (03:26→19:45)
[2020-02-20 05:50] LABS: BASOPHILS % (AUTO) 0.1 % (0.0-5.0); HEMATOCRIT 28.8 % (36-48); MEAN CORPUSCULAR HEMOGLOBIN 29.9 pg (27.0-33.0); MEAN CORPUSCULAR HGB CONC 31.6 g/dL (32.0-36.0); MEAN CORPUSCULAR VOLUME 94.7 fL (79-99); MONOCYTES % (AUTO) 2.5 % (3.0-13.0); NEUTROPHILS % (AUTO) 87.6 % (40.0-77.0); NUCLEATED RED BLOOD CELLS 0.7 % (0.0-0.19); PLATELET COUNT (AUTO) 263 K/uL (130-400); RED BLOOD CELL COUNT(AUTO) 3.04 MIL/uL (4.00-5.50); RED CELL DISTRIBUTION WIDTH 21.5 % (11.0-15.5); WHITE BLOOD COUNT (AUTO) 8.5 K/uL (4.8-10.8)
[2020-02-20] MEDS: INSULIN HUMULIN R 100 UNIT/ML 3ML SQ SCH ×4 (06:02→22:03)
[2020-02-20 06:16] LABS: CREATININE 0.7 mg/dL (0.5-1.5)
[2020-02-20 08:00] VITALS: BP 123/77
[2020-02-20] MEDS: FOLIC ACID 0.8 MG PO SCH (09:00)
[2020-02-20] MEDS: CYANOCOBALAMIN 50 MCG PO SCH (09:00)
[2020-02-20] MEDS: POTASSIUM CHLORIDE 20 MEQ ERTAB PO SCH (09:15)
[2020-02-20] MEDS: AMLODIPINE BESYLATE 5 MG TAB PO SCH (09:27)
[2020-02-20] MEDS: ASCORBIC ACID 500 MG TAB PO SCH (09:27)
[2020-02-20] MEDS: APIXABAN 2.5 MG TABLET PO SCH ×2 (09:28→21:50)
[2020-02-20] MEDS: PANTOPRAZOLE 40 MG/VIAL IVP SCH ×2 (09:28→21:49)
[2020-02-20 11:00] VITALS: BP 122/63
--- NOTE | 2020-02-20 14:38 | NUR ---
Updated patient Notified patient of change in DCP. Patient in agreement to [facility]. CM notified by patient's daughter Laina (ph: [phone]) of patient's son recent passing from [email or web address]. Condolences given to patient. Patient verbalized would be interested in speaking to SS regarding of her son. Discussed case with SS. SS to call to patient's room. CD
[2020-02-20 15:00] VITALS: BP 141/69
--- NOTE | 2020-02-20 16:07 | NUR ---
Grief: Pt's son SW spoke with pt. who reported that she is grieving over the loss of her son due to Covid. Pt. reported that her son was residing in [place], was hospitalized there and there. SW offered condolences and empathetic listening. Pt. wept as she spoke of the loss of her son and the inability to be present at his services. Pt. reported that her son was a teacher with the [employer] and that it was reported to her that there was an outpour of condolences from students and staff. Pt. stated that her daughter resides in [place] and is in charge of all the arrangements which gives her much peace. Pt. is a Manda[place] and shared her thoughts on the after life that her son will share in [facility]. Pt. stated that she is being prayed for by her adventism community and understands the difficulty for all. Pt. grateful for this worker's call.
[2020-02-20 19:00] VITALS: BP 125/72
[2020-02-20 23:58] VITALS: BP 123/74
[2020-02-21 03:34] VITALS: BP 123/67
[2020-02-21] MEDS: METHYLPREDNISOLONE SOD SUCC 125MG/2ML VIAL IVP SCH ×3 (04:19→18:10)
[2020-02-21 05:37] LABS: BASOPHILS % (AUTO) 0.1 % (0.0-5.0); EOSINOPHILS % (AUTO) 1.9 % (0.0-8.0); HEMATOCRIT 29.8 % (36-48); MEAN CORPUSCULAR HEMOGLOBIN 29.8 pg (27.0-33.0); MEAN CORPUSCULAR HGB CONC 31.9 g/dL (32.0-36.0); MEAN CORPUSCULAR VOLUME 93.4 fL (79-99); MONOCYTES % (AUTO) 2.7 % (3.0-13.0); NEUTROPHILS % (AUTO) 86.8 % (40.0-77.0); NUCLEATED RED BLOOD CELLS 0.2 % (0.0-0.19); PLATELET COUNT (AUTO) 248 K/uL (130-400); RED BLOOD CELL COUNT(AUTO) 3.19 MIL/uL (4.00-5.50); RED CELL DISTRIBUTION WIDTH 21.3 % (11.0-15.5); WHITE BLOOD COUNT (AUTO) 8.8 K/uL (4.8-10.8)
[2020-02-21 06:26] LABS: CARBON DIOXIDE 26 mmol/L (21-32); CHLORIDE 105 mmol/L (101-111); CREATININE 0.7 mg/dL (0.5-1.5); GLOMERULAR FILTR. RATE CALC 86 mL/min (>60); GLUCOSE,RANDOM 118 mg/dL (70-105); LACTATE DEHYDROGENASE 342 U/L (81-234); SODIUM SERUM 138 mmol/L (136-145); UREA NITROGEN, BLOOD 20 mg/dL (7-18)
[2020-02-21 06:29] LABS: CRP QUANTITATIVE < 2.00 mg/L (0.00-9.0)
[2020-02-21] MEDS: INSULIN HUMULIN R 100 UNIT/ML 3ML SQ SCH ×4 (06:32→21:04)
[2020-02-21] MEDS: FOLIC ACID 0.8 MG PO SCH (07:31)
[2020-02-21] MEDS: POTASSIUM CHLORIDE 20 MEQ ERTAB PO SCH (07:32)
[2020-02-21] MEDS: CYANOCOBALAMIN 50 MCG PO SCH (07:32)
[2020-02-21 08:00] VITALS: BP 135/69
[2020-02-21] MEDS: PANTOPRAZOLE 40 MG/VIAL IVP SCH ×2 (09:50→20:18)
[2020-02-21] MEDS: ASCORBIC ACID 500 MG TAB PO SCH (09:50)
[2020-02-21] MEDS: APIXABAN 2.5 MG TABLET PO SCH ×2 (09:50→20:19)
[2020-02-21] MEDS: AMLODIPINE BESYLATE 5 MG TAB PO SCH (09:50)
--- NOTE | 2020-02-21 10:45 | NUR ---
cm note updated primary nurse , pt is accepted at [facility].
--- NOTE | 2020-02-21 10:53 | NUR ---
Pt has been accepted to [facility]. Called and informed pt daughter pt will be transferred today. Informed MD that pt is ready for discharge. Waiting for d/c order from
[2020-02-21 11:00] VITALS: BP 124/68
[2020-02-21] MEDS ORDERED: DEXA6TAB PO (11:22)
[2020-02-21] MEDS ORDERED: APIX2.5T PO (11:22)
--- NOTE | 2020-02-21 14:22 | NUR ---
Called report to KAREN Yee at [facility]. Return call from Ray from facility reported that pt cannot be accepted due to low grade fever of 99.4 at recheck. Pt has to be free of fever x72hrs. Called pt's daughter and informed of hold of transfer, and informed Dr. Valdez of hold of transfer. Will continue to monitor.
[2020-02-21 16:00] VITALS: BP 129/68
[2020-02-21 20:41] VITALS: BP 113/67
[2020-02-21 23:52] VITALS: BP 137/73
[2020-02-22] MEDS: METHYLPREDNISOLONE SOD SUCC 125MG/2ML VIAL IVP SCH ×3 (03:33→18:09)
[2020-02-22 03:43] VITALS: BP 129/78
[2020-02-22] MEDS: INSULIN HUMULIN R 100 UNIT/ML 3ML SQ SCH ×4 (06:25→21:46)
[2020-02-22] MEDS: FOLIC ACID 0.8 MG PO SCH (07:33)
[2020-02-22] MEDS: CYANOCOBALAMIN 50 MCG PO SCH (07:34)
[2020-02-22] MEDS: POTASSIUM CHLORIDE 20 MEQ ERTAB PO SCH (07:34)
[2020-02-22 08:00] VITALS: BP 125/70
[2020-02-22] MEDS: PANTOPRAZOLE 40 MG/VIAL IVP SCH ×2 (08:44→21:44)
[2020-02-22] MEDS: APIXABAN 2.5 MG TABLET PO SCH ×2 (08:44→21:44)
[2020-02-22] MEDS: AMLODIPINE BESYLATE 5 MG TAB PO SCH (08:44)
[2020-02-22] MEDS: ASCORBIC ACID 500 MG TAB PO SCH (08:44)
[2020-02-22 11:00] VITALS: BP 118/67
--- NOTE | 2020-02-22 14:04 | NUR ---
cm note call made to jenaro Cardenas with [facility] states unable to accept pt until 72hrs afebrile. states per Don at [facility] has to be below T99.4 X72hrs. Addendum: 02/22/20 at 1406 by ANTONIA FORRESTER CM will resubmit request on monday for re approval of snf. if pt remains afebrile.
[2020-02-22 16:00] VITALS: BP 118/74
[2020-02-22 20:39] VITALS: BP 133/71
[2020-02-23 00:34] VITALS: BP 105/77
[2020-02-23] MEDS: METHYLPREDNISOLONE SOD SUCC 125MG/2ML VIAL IVP SCH ×3 (03:45→17:59)
[2020-02-23 04:15] VITALS: BP 112/68
[2020-02-23] MEDS: INSULIN HUMULIN R 100 UNIT/ML 3ML SQ SCH ×4 (05:54→20:03)
[2020-02-23 07:01] LABS: BASOPHILS % (AUTO) 0.1 % (0.0-5.0); HEMATOCRIT 32.3 % (36-48); LYMPHOCYTES % (AUTO) 8.2 % (21.0-51.0); MEAN CORPUSCULAR HEMOGLOBIN 30.3 pg (27.0-33.0); MEAN CORPUSCULAR HGB CONC 32.5 g/dL (32.0-36.0); MEAN CORPUSCULAR VOLUME 93.4 fL (79-99); MONOCYTES % (AUTO) 5.2 % (3.0-13.0); NEUTROPHILS % (AUTO) 86.1 % (40.0-77.0); NUCLEATED RED BLOOD CELLS 0.4 % (0.0-0.19); PLATELET COUNT (AUTO) 208 K/uL (130-400); RED BLOOD CELL COUNT(AUTO) 3.46 MIL/uL (4.00-5.50); RED CELL DISTRIBUTION WIDTH 21.4 % (11.0-15.5); WHITE BLOOD COUNT (AUTO) 8.3 K/uL (4.8-10.8)
[2020-02-23] MEDS: CYANOCOBALAMIN 50 MCG PO SCH (07:34)
[2020-02-23] MEDS: FOLIC ACID 0.8 MG PO SCH (07:34)
[2020-02-23 07:35] LABS: ALANINE AMINOTRANSFERASE 60 U/L (12-78); ALBUMIN 2.5 g/dL (3.5-5.0); ASPARTATE AMINOTRANSFERASE 18 U/L (10-37); BILIRUBIN,TOTAL 0.5 mg/dL (0.2-1.0); CARBON DIOXIDE 27 mmol/L (21-32); CHLORIDE 105 mmol/L (101-111); CREATININE 0.7 mg/dL (0.5-1.5); GLOMERULAR FILTR. RATE CALC 86 mL/min (>60); GLUCOSE,RANDOM 111 mg/dL (70-105); LACTATE DEHYDROGENASE 334 U/L (81-234); POTASSIUM 3.9 mmol/L (3.5-5.1); SODIUM SERUM 138 mmol/L (136-145); TOTAL PROTEIN, SERUM 5.1 g/dL (6.0-8.3); UREA NITROGEN, BLOOD 17 mg/dL (7-18)
[2020-02-23] MEDS: POTASSIUM CHLORIDE 20 MEQ ERTAB PO SCH (07:53)
[2020-02-23 08:00] VITALS: BP 134/74
[2020-02-23 08:09] LABS: B-TYPE NATRIURETIC PEPTIDE 363 pg/mL (0-100)
[2020-02-23 08:55] LABS: CRP QUANTITATIVE < 2.00 mg/L (0.00-9.0)
[2020-02-23] MEDS: ASCORBIC ACID 500 MG TAB PO SCH (09:24)
[2020-02-23] MEDS: AMLODIPINE BESYLATE 5 MG TAB PO SCH (09:24)
[2020-02-23] MEDS: APIXABAN 2.5 MG TABLET PO SCH ×2 (09:24→20:51)
[2020-02-23] MEDS: PANTOPRAZOLE 40 MG/VIAL IVP SCH ×2 (09:24→20:50)
[2020-02-23 11:00] VITALS: BP 125/71
[2020-02-23 16:00] VITALS: BP 138/76
[2020-02-23 20:00] VITALS: BP 140/70
[2020-02-24] VITALS (7 sets, daily range): BP systolic 114–138; BP diastolic 51–72
[2020-02-24] MEDS: METHYLPREDNISOLONE SOD SUCC 125MG/2ML VIAL IVP SCH ×3 (03:42→18:01)
[2020-02-24 05:26] LABS: HEMATOCRIT 31.7 % (36-48); LYMPHOCYTES % (AUTO) 7.3 % (21.0-51.0); MEAN CORPUSCULAR HEMOGLOBIN 30.6 pg (27.0-33.0); MEAN CORPUSCULAR HGB CONC 32.5 g/dL (32.0-36.0); MEAN CORPUSCULAR VOLUME 94.1 fL (79-99); MONOCYTES % (AUTO) 4.4 % (3.0-13.0); NEUTROPHILS % (AUTO) 85.9 % (40.0-77.0); NUCLEATED RED BLOOD CELLS 0.4 % (0.0-0.19); PLATELET COUNT (AUTO) 185 K/uL (130-400); RED BLOOD CELL COUNT(AUTO) 3.37 MIL/uL (4.00-5.50); RED CELL DISTRIBUTION WIDTH 21.2 % (11.0-15.5); WHITE BLOOD COUNT (AUTO) 6.9 K/uL (4.8-10.8)
[2020-02-24] MEDS: INSULIN HUMULIN R 100 UNIT/ML 3ML SQ SCH ×4 (05:35→20:10)
--- NOTE | 2020-02-24 05:38 | NUR ---
PM SHIFT SUMMARY PT A & 0X3 ABLE MAKE NEEDS KNOWN, ON NC @1.5 L O2 SAT 96-100%, O2 DECREASED TO 0.5L MAINTAINING 02 SAT 95-96%. DENIES PAIN OR ANY CONCERNS. SLEPT THROUGHOUT NIGHT WITHOUT INCIDENT. NO OTHER CHANGES TO BASELINE SHIFT ASSESSMENT/ACUTE EVENT OVERNIGHT. TMAX ON SHIFT 98.3.
[2020-02-24 06:08] LABS: ALANINE AMINOTRANSFERASE 59 U/L (12-78); ALBUMIN 2.4 g/dL (3.5-5.0); ASPARTATE AMINOTRANSFERASE 21 U/L (10-37); BILIRUBIN,TOTAL 0.5 mg/dL (0.2-1.0); CARBON DIOXIDE 28 mmol/L (21-32); CHLORIDE 105 mmol/L (101-111); CREATININE 0.6 mg/dL (0.5-1.5); GLOMERULAR FILTR. RATE CALC 102 mL/min (>60); GLUCOSE,RANDOM 94 mg/dL (70-105); LACTATE DEHYDROGENASE 320 U/L (81-234); POTASSIUM 4.1 mmol/L (3.5-5.1); SODIUM SERUM 139 mmol/L (136-145); UREA NITROGEN, BLOOD 17 mg/dL (7-18)
[2020-02-24 06:19] LABS: B-TYPE NATRIURETIC PEPTIDE 334 pg/mL (0-100); CRP QUANTITATIVE < 2.00 mg/L (0.00-9.0)
[2020-02-24] MEDS: CYANOCOBALAMIN 50 MCG PO SCH (07:23)
[2020-02-24] MEDS: FOLIC ACID 0.8 MG PO SCH (07:23)
[2020-02-24] MEDS: ASCORBIC ACID 500 MG TAB PO SCH (08:29)
[2020-02-24] MEDS: AMLODIPINE BESYLATE 5 MG TAB PO SCH (08:29)
[2020-02-24] MEDS: APIXABAN 2.5 MG TABLET PO SCH ×2 (08:29→20:10)
[2020-02-24] MEDS: POTASSIUM CHLORIDE 20 MEQ ERTAB PO SCH (08:30)
[2020-02-24] MEDS: PANTOPRAZOLE 40 MG/VIAL IVP SCH ×2 (08:30→20:09)
--- NOTE | 2020-02-24 11:00 | NUR ---
Follow up with Afia therapeutic case manager to determine pt discharge status. preconstruction manager to follow up with SNF facility.
--- NOTE | 2020-02-24 15:42 | NUR ---
[facility] Per Talita with [facility], patient is accepted clinically and they have extended patient's auth. [facility] has staffing issues and cannot accept today, but should be able to accept tomorrow. If no bed opens up by tomorrow, CM to explore other COVID + accepting facilities. Talita with [facility] aware. AVD placed. CD Addendum: 02/24/20 at 1543 by MER ALAMO CM Amended: Links added.
--- NOTE | 2020-02-24 16:30 | NUR ---
Pt daughter called asking for pt to be re-tested for covid due to transfer to SNF-Rehab. Pt son's is Sunday 02/25, and when pt transfers to SNF pt will need to be negative to leave the facility. Called Dr. Valdez and luis with covid retest. Completed nasal swab and Amie walked it to lab. Return call from daughter informed that pt son that lives in [place] received a call from the [facility] and informed that pt is cleared by [facility], but the system is backed up and unsure when family will receive the clearance. Spoke with Afia the case consultant whom is requesting the clearance letter to send to SNF, will f/u with case consultant on 02/25/2020 to inform letter has not yet been received by family. Covid results for 02/23 pending.
[2020-02-25 03:52] VITALS: BP 127/66
[2020-02-25] MEDS: METHYLPREDNISOLONE SOD SUCC 40MG/ML 1ML IVP SCH ×2 (04:40→12:56)
[2020-02-25] MEDS: INSULIN HUMULIN R 100 UNIT/ML 3ML SQ SCH ×3 (05:25→16:30)
--- NOTE | 2020-02-25 05:54 | NUR ---
PM SHIFT SUMMARY PT A&OX3 ON RA THROUGHOUT SHIFT. ABLE TO MAKE NEEDS KNOWN. NO CHANGES FROM BASELINE SHIFT ASSESSMENT/ACUTE EVENTS OVERNIGHT.
[2020-02-25] MEDS: POTASSIUM CHLORIDE 20 MEQ ERTAB PO SCH (07:37)
[2020-02-25] MEDS: FOLIC ACID 0.8 MG PO SCH (07:37)
[2020-02-25] MEDS: CYANOCOBALAMIN 50 MCG PO SCH (07:37)
[2020-02-25 08:00] VITALS: BP 120/61
[2020-02-25] MEDS: APIXABAN 2.5 MG TABLET PO SCH (09:33)
[2020-02-25] MEDS: ASCORBIC ACID 500 MG TAB PO SCH (09:33)
[2020-02-25] MEDS: AMLODIPINE BESYLATE 5 MG TAB PO SCH (09:33)
[2020-02-25] MEDS: PANTOPRAZOLE 40 MG/VIAL IVP SCH (09:45)
[2020-02-25 11:00] VITALS: BP 127/74
[2020-02-25] MEDS ORDERED: PHARMACY COMMUNICATION MISC SCH (11:45)
[2020-02-25] MEDS ORDERED: MAG HYDROX/AL HYDROX/SIMETH 30 ML, LIDOCAINE HCL 2% VISCOUS 30 ML, DIPHENHYDRAMINE HCL ... PO PRN ×3 (12:00)
[2020-02-25] MEDS ORDERED: COMPOUND PO MISCELLANEOUS 1 EACH MISC MISC PRN (12:15)
--- NOTE | 2020-02-25 14:23 | NUR ---
Received a call from pt daughter requesting that first covid swab results be faxed or emailed to [facility]. Going to Karma Mckeon phone number [phone], fax [phone], email [email or web address] Made a copy of covid results from 02/01 and informed nurse outreach case manager Afia and provided her with copy. Covid test from 02/23 not resulted at this time.
[2020-02-25 15:00] VITALS: BP 113/63
[2020-02-25 16:00] VITALS: BP 113/63
--- NOTE | 2020-02-25 16:10 | NUR ---
Called report to KAREN Beckwith at [facility]. Amena to return call to notify if [facility] will be transporting pt.
--- NOTE | 2020-02-25 17:05 | NUR ---
Return call to [facility] spoke with [facility] will transport pt. ETA 1 hour. Will call when in route.
--- NOTE | 2020-02-25 18:20 | NUR ---
Pt discharged. Transported to [facility] via their transportation. No s/s of distress noted upon exit from unit. IV and tele D/C.
== END 2020-02-25 18:30 | DRG 177 ==
LOC: EDH 17:36 → EDHIP 19:57 → 2CH 02-03 17:31 → 2DH 02-05 22:00
PROVIDERS: ADMIT Internal Medicine; ATTEND Internal Medicine
PROC: 30233N1 Transfusion of Nonautologous Red Blood Cells into Peripheral Vein, Percutaneous Approach (ICD-10-PCS; principal; 2020-02-02)
DX: U07.1 COVID-19 (principal); J96.01 Acute respiratory failure with hypoxia; J12.89 Other viral pneumonia; I50.33 Acute on chronic diastolic (congestive) heart failure; N17.9 Acute kidney failure, unspecified; E87.0 Hyperosmolality and hypernatremia; D62 Acute posthemorrhagic anemia; E87.1 Hypo-osmolality and hyponatremia; I31.3 Pericardial effusion (noninflammatory); K92.2 Gastrointestinal hemorrhage, unspecified; I13.0 Hypertensive heart and chronic kidney disease with heart failure and stage 1 through stage 4 chronic kidney disease, or unspecified chronic kidney disease; E87.6 Hypokalemia; E11.22 Type 2 diabetes mellitus with diabetic chronic kidney disease; E11.65 Type 2 diabetes mellitus with hyperglycemia; E66.3 Overweight; E78.5 Hyperlipidemia, unspecified; I70.0 Atherosclerosis of aorta; K42.9 Umbilical hernia without obstruction or gangrene; K76.0 Fatty (change of) liver, not elsewhere classified; K80.20 Calculus of gallbladder without cholecystitis without obstruction; K82.8 Other specified diseases of gallbladder; N18.3 Chronic kidney disease, stage 3 (moderate); N28.1 Cyst of kidney, acquired; Z68.28 Body mass index [BMI] 28.0-28.9, adult; Z79.01 Long term (current) use of anticoagulants; Z86.19 Personal history of other infectious and parasitic diseases
CPT/HCPCS: 36415; 36430; 36600; 71045; 71250; 74176; 80048; 80053; 80076; 81001; 81003; 82270; 82550; 82570; 82728; 82803; 82948; 83036; 83540; 83550; 83605; 83615; 83735; 83874; 83880; 83935; 84100; 84132; 84145; 84300; 84478; 84484; 84550; 85014; 85018; 85025; 85045; 85378; 85384; 85610; 86140; 86156; 86850; 86870; 86900; 86901; 86922; 86927; 87040; 87449; 87804; 87880; 93005; 93306; 93356; 93970; 97039; C9113; G0378; J0456; J0885; J1100; J1644; J1650; J1756; J1815; J1940; J2543; J2920; J2930; J3480; J3490; J7040; J7050; J7070; J8540; P9016; P9017; U0003

== ENCOUNTER 2024-10-10 18:18 | Inpatient (IN) | payer MEDICARE ==
[~2024-10-10] VITALS: Ht 162.6 cm; Wt 57.7 kg
[~2024-10-10 18:18] MED LIST: APIX2.5T PO; ATOR20TA65 PO; DILT120C89 PO; LEVO25TA9 PO; LEVO750T40 PO; METO50TA9 PO
--- NOTE | 2024-10-10 18:26 | ERN ---
ED Note History of Present Illness Stated Complaint: AMS Chief Complaint: Weakness Time Seen by MD: 18:20 Dictation: PATIENT IS AN 84-YEAR-OLD FEMALE COMING IN WITH HER SON WITH COMPLAINTS OF ALTERED MENTAL STATUS AND SHORTNESS A BREATH FOR SEVERAL DAYS. HE STATES SHE HAS NO FEVER NO CHILLS NO NAUSEA VOMITING. PATIENT'S SON STATES HE CAME HOME THIS MORNING AND HIS MOTHER HAD URINATED SEVERAL PLACES IN THE HOUSE, HAD NOT LET THE [place] OUT OF THE CAGES OR OTHER ACTIVITIES THAT SHE NORMALLY PER TAKES IN. SHE IS ALERT AND ORIENTED TIMES 3-4, SPEECH IS CLEAR CURRENTLY GAIT IS STEADY TO TRIAGE. Allergies: Coded Allergies: No Known Drug Allergies (Verified Allergy, Unknown, 02/02/20) Home Meds Active Scripts Levofloxacin (Levofloxacin) 750 Mg Tablet, 750 MG PO DAILY for 5 Days, #5 TAB Prov:HIMANSHU WANG MD 09/03/23 Metoprolol Succinate (Toprol Xl) 50 Mg Tab.er.24h, 100 MG PO BID, #60 TAB 1 Refill Prov:HIMANSHU WANG MD 09/03/23 Levothyroxine Sodium (Synthroid 25 Mcg Tab) 25 Mcg Tablet, 25 MCG PO DAILY@0630, #30 TAB 0 Refills Prov:HIMANSHU WANG MD 09/03/23 Diltiazem HCl (Cardizem Cd 120 mg) 120 Mg Cap.er.24h, 120 MG PO DAILY, #30 CAPSULE.DR 0 Refills Prov:HIMANSHU WANG MD 09/03/23 Apixaban (Eliquis) 2.5 Mg Tablet, 2.5 MG PO BID, #60 TAB 0 Refills Prov:HIMANSHU WANG MD 09/03/23 Reported Medications Atorvastatin Calcium (Atorvastatin Calcium) 20 Mg Tablet, 20 MG PO HS, TAB 08/28/23 Past Medical History Past Medical History: High Cholesterol, Hypertension, Hypothyroid Surgical History: None History: Not Applicable RN Note Reviewed/Agreed w/PFSH: Yes Review of System Dictation CONSTITUTIONAL: NEGATIVE EXCEPT FOR HPI HEAD/FACE: NEGATIVE EXCEPT FOR HPI EENT: NEGATIVE EXCEPT FOR HPI RESPIRATORY: NEGATIVE EXCEPT FOR HPI SHORTNESS A BREATH GASTROINTESTINAL/ABDOMINAL: NEGATIVE EXCEPT FOR HPI GENITOURINARY: NEGATIVE EXCEPT FOR HPI MUSCULOSKELETAL: NEGATIVE EXCEPT FOR HPI INTEGUMENTARY: NEGATIVE EXCEPT FOR HPI NEUROLOGICAL/PSYCH: NEGATIVE EXCEPT FOR HPI ALTERED MENTAL STATUS HEMATOLOGIC/LYMPHATIC: NEGATIVE EXCEPT FOR HPI ALL SYSTEMS NEGATIVE, EXCEPT NOTED ABOVE. 13 POINT REVIEW OF SYSTEMS ASSESSED AND ALL NEGATIVE EXCEPT FOR ABOVE. Initial Vital Sign VS Vital Signs Date Time Temp Pulse Resp B/P (MAP) Pulse Ox O2 Delivery O2 Flow Rate FiO2 10/10/24 18:21 99.3 118 20 132/89 96 Room Air 0 10/10/24 18:56 21 Physical Exam Dictation VITAL SIGNS REVIEWED GENERAL APPEARANCE: ALERT, ORIENTED X 3, NO ACUTE DISTRESS, WELL DEVELOPED, NOURISHED. HEAD AND FACE: NON-TRAUMATIC. EYES: PERRL, PINK CONJUNCTIVAS, EYELID NO TRAUMA, ANTERIOR CHAMBER WITH ARCUS SENILIS. EARS: PINNAS INTACT AND NO SIGNS OF TRAUMA OR ERYTHEMA EAR CANALS CLEAR AND NO DISCHARGE TM NO ERYTHEMA NOSE: NO DISCHARGE, NO BLEEDING. OROPHARYNX: MOUTH NORMAL, TONGUE PINK, PHARYNX CLEAR,NO ERYTHEMA, TONSILS NO EXUDATES, NO ABSCESSES NOTED, MUCOUS MEMBRANE MOIST NECK: SUPPLE, NON-TENDER, NO THYROMEGALY, NO MASSES, NO JVD, NO BRUITS BREAST:DEFERRED CHEST:NO TENDERNESS, NO CREPITUS, NO PARADOXICAL MOVEMENT, NO RETRACTIONS LUNGS:CLEAR, WELL-VENTILATED, SYMMETRIC, NO RALES, NO WHEEZING, NO RHONCHI, NO STRIDOR, GOOD BREATH SOUNDS BILATERALLY HEART: TACHYCARDIC, NO MURMUR, NO GALLOPS VASCULAR: NO PERIPHERAL EDEMA, ABDOMEN: SOFT, POSITIVE BOWEL SOUNDS, NONDISTENDED, NO GUARDING, NONTENDER, NO REBOUND, NO MASSES NO HEPATOMEGALY, NO SPLENOMEGALY, NO CARRILLO'S SIGN, NO HERNIAS. RECTAL: DEFERRED GENITAL: DEFERRED NEUROLOGICAL: NORMAL SPEECH, MOTOR FUNCTION INTACT, SENSORY FUNCTION INTACT MUSCULOSKELETAL: NECK NONTENDER, FULL RANGE OF MOTION, BACK NONTENDER, FULL RANGE OF MOTION, EXTREMITIES: NONTENDER, FULL RANGE OF MOTION SKIN: COLOR PINK, DRY, NO TURGOR, NO RASH, NO LACERATIONS, NO ABRASIONS, NO CONTUSIONS. LYMPHATIC: DEFERRED Results (Laboratory/Radiology) Laboratory/Radiology Laboratory Tests Test 10/10/24 18:26 10/10/24 18:53 10/10/24 19:08 10/10/24 20:06 SARS-CoV-2 Antigen (Rapid) PRESUMPTIVE NEGATIVE White Blood Count 9.5 K/uL (4.8-10.8) Red Blood Count 4.99 MIL/uL (4.00-5.50) Hemoglobin 13.9 g/dL (12.0-16.0) Hematocrit 43.7 % (36-48) Mean Corpuscular Volume 87.6 fL (79-99) Mean Corpuscular Hemoglobin 27.9 pg (27.0-33.0) Mean Corpuscular Hemoglobin Concent 31.8 g/dL (32.0-36.0) L Red Cell Distribution Width 14.2 % (11.0-15.5) Platelet Count 199 K/uL (130-400) Mean Platelet Volume 11.6 fL (7.5-10.5) H Immature Granulocyte % (Auto) 0.3 % (0-1) Neutrophils (%) (Auto) 74.7 % (40.0-77.0) Lymphocytes (%) (Auto) 12.5 % (21.0-51.0) L Monocytes (%) (Auto) 11.9 % (3.0-13.0) Eosinophils (%) (Auto) 0.0 % (0.0-8.0) Basophils (%) (Auto) 0.6 % (0.0-5.0) Neutrophils # (Auto) 7.1 K/uL (1.8-7.7) Lymphocytes # (Auto) 1.2 K/uL (1.0-4.8) Monocytes # (Auto) 1.1 K/uL (0.1-1.0) H Eosinophils # (Auto) 0.00 K/uL (0.00-0.70) Basophils # (Auto) 0.06 K/uL (0.00-0.20) Absolute Immature Granulocyte (auto 0.03 K/uL (0-1) Nucleated Red Blood Cells 0.0 % (0.0-0.19) Sodium Level 137 mmol/L (136-145) Potassium Level 3.7 mmol/L (3.5-5.1) Chloride Level 99 mmol/L (101-111) L Carbon Dioxide Level 28 mmol/L (21-32) Blood Urea Nitrogen 12 mg/dL (7-18) Creatinine 1.1 mg/dL (0.5-1.0) H Glomerular Filtration Rate Calc 49 mL/min (>90) Random Glucose 132 mg/dL (70-105) H Lactic Acid Level 2.0 mmol/L (0.8-2.5) 2.0 mmol/L (0.8-2.5) Total Calcium 9.0 mg/dL (8.5-10.1) Troponin I High Sensitivity 69 ng/L (4-50) *H B-Type Natriuretic Peptide 2600 pg/mL (0-100) H Influenza Type A Antigen Positive For Type A Influenza Type B Antigen Negative For Type B Labs Reviewed?: Yes EKG Comment: EKG ATRIAL FIBRILLATION WITH A RVR/VENTRICULAR RATE 118/T-WAVE CHANGES IN LATERAL LEADS FOUR FIVE AND SIX 193/REPEAT EKG SHOWS SINUS RHYTHM/HEART RATE 81/NH INTERVAL 490 MILLISECONDS AFTER RECEIVING CARDIZEM. PATIENT HEMODYNAMICALLY STABLE ED Course ED Course Orders Procedure Category Date Status Time Covid19 (Sars Antigen LAB 10/10/24 Complete Rapid) 18:23 Cbc With Differential LAB 10/10/24 Complete 18:23 Blood Cult RAMIRO 10/10/24 In Process 18:23 Urinalysis Profile LAB 10/10/24 Logged 18:23 Troponin I High LAB 10/10/24 Complete Sensitivity 18:23 Lactic Acid LAB 10/10/24 Complete 18:23 Basic Metabolic Panel LAB 10/10/24 Complete 18:23 B-Type Natriuretic LAB 10/10/24 Complete Peptide 18:23 Chest 1vw RAD 10/10/24 Taken 18:23 12 Lead Ekg Tracing- EKG 10/10/24 Logged Technical 18:37 Diltiazem 25mg Inj PHA 10/10/24 Complete (Cardizem 25mg Inj) 19:00 Ct Head/Brain W/O CT 10/10/24 Resulted Contrast 18:45 Influenza Type A & B, LAB 10/10/24 Complete Rapid 19:02 12 Lead Ekg Tracing- EKG 10/10/24 Logged Technical 19:27 Lactic Acid LAB 10/10/24 Complete 19:27 Covid19 (Sars Antigen LAB 10/10/24 Logged Rapid) 19:27 Acetaminophen 500mg PHA 10/10/24 Complete Tab (Tylenol 500mg T 19:30 Ceftriaxone 1g Vial PHA 10/10/24 Complete (Rocephine 1g Inj) 20:00 Azithromycin 500mg+Ns PHA 10/10/24 Complete 250ml (Azithromyci 19:35 Oseltamivir Phosphate PHA 10/10/24 Complete (Tamiflu) 20:00 Albuterol 0.083% PHA 10/10/24 Complete 2.5mg/3ml (Proventil 20:30 Admit Orders ADM 10/10/24 Transmitted 20:24 Consistent Carb DIET 10/11/24 Transmitted Breakfast Basic Metabolic Panel LAB 10/11/24 Verified 04:00 Cbc With Differential LAB 10/11/24 Verified 04:00 Magnesium LAB 10/11/24 Verified 04:00 Phosphorus LAB 10/11/24 Verified 04:00 Respiratory Cult RAMIRO 10/10/24 Logged W/Gram Stain 20:24 Urine Creatinine LAB 10/10/24 Logged Random 20:24 Urine Sodium,Random LAB 10/10/24 Logged 20:24 Urinalysis Profile LAB 10/10/24 Logged 20:24 Osmolality Urine LAB 10/10/24 Logged 20:24 Activity: Ad Ibeth CPOE 10/10/24 Transmitted 20:24 Apply Knee High Teds CPOE 10/10/24 Transmitted 20:24 Apply Scds CPOE 10/10/24 Transmitted 20:24 Condition: CPOE 10/10/24 Transmitted 20:24 Daily Weights CPOE 10/10/24 Transmitted 20:24 Daily Fluid Intake CPOE 10/10/24 Transmitted Restriction 20:24 I&O Q Shift CPOE 10/10/24 Transmitted 20:24 Nurse To Enter Home CPOE 10/10/24 Transmitted Medication 20:24 Oxygen By Nc/Pulse Ox CPOE 10/10/24 Transmitted 20:24 Telemetry Monitoring CPOE 10/10/24 Transmitted 20:24 Vital Signs(Adult CPOE 10/10/24 Transmitted Hospitalist) 20:24 Pharmacy PHA 10/10/24 Logged Communication 20:30 Ipratropium 0.5 PHA 10/11/24 In Process Mg/2.5 Ml Inh 00:00 Troponin I High LAB 10/11/24 Verified Sensitivity 01:00 Troponin I High LAB 10/11/24 Verified Sensitivity 07:00 Troponin I High LAB 10/11/24 Verified Sensitivity 13:00 Aspirin 81mg Chew Tab PHA 10/10/24 Complete (Aspirin 81mg Chew 20:30 Aspirin 81mg Ec Tab PHA 10/11/24 In Process (Aspirin 81mg Ec Tab 09:00 Nitroglycerin 0.4mg PHA 10/10/24 In Process Sl Tab (Nitrostat) 20:30 Acetaminophen 325 Tab PHA 10/10/24 In Process (Tylenol 325mg Tab 20:30 Guaifenesin Sug-Navi PHA 10/10/24 In Process 100 Mg/5ml (Robituss 20:30 Heparin 5,000 Unit PHA 10/10/24 In Process Vial (Heparin 5,000 U 21:00 Hydralazine 20mg Inj PHA 10/10/24 In Process (Apresoline 20mg In 20:30 Ondansetron 4mg Inj PHA 10/10/24 In Process (Zofran 4mg Inj) 20:30 Pantoprazole 40mg Tab PHA 10/11/24 In Process (Protonix 40mg Tab 09:00 Procalcitonin LAB 10/10/24 Logged 20:36 Lactic Acid LAB 10/10/24 Logged 20:36 Oseltamivir Phosphate PHA 10/11/24 In Process (Tamiflu) 10:00 Zosyn 3.375gm+Ns 50ml PHA 10/11/24 In Process (Zosyn 3.375gm+Ns 04:00 Thyroid Stimulating LAB 10/11/24 Verified Hormone 04:00 Current Medications Medications (Trade) Dose Ordered Sig/Artie Route PRN Reason Start Time Stop Time Status Last Admin Dose Admin Acetaminophen (TYLenol 325MG TAB) 650 mg Q6H PRN PO TEMPERATURE GREATER THAN 101.5 10/10/24 20:30 11/09/24 20:29 Acetaminophen (TYLenol 500MG TAB) 1,000 mg ONCE ONCE PO 10/10/24 19:30 10/10/24 19:53 DC 10/10/24 20:04 Albuterol Sulfate (Proventil 0.083% 2.5mg/3ml) 2.5MG ONCE ONCE IH 10/10/24 20:30 10/10/24 20:31 DC Aspirin (Aspirin 81mg Chew Tab) 162 mg ONCE ONCE PO 10/10/24 20:30 10/10/24 20:37 DC Aspirin (Aspirin 81mg Ec Tab) 81 mg DAILY PO 10/11/24 09:00 11/10/24 08:59 Azithromycin 250 ml @ 250 mls/hr ONCE STAT IVPB 10/10/24 19:35 10/10/24 20:34 DC 10/10/24 20:35 Ceftriaxone Sodium (ROCEphine 1G INJ) 1 gm ONCE ONCE IVP 10/10/24 20:00 10/10/24 20:01 DC 10/10/24 20:04 Diltiazem HCl (CARDIzem 25MG INJ) 20 mg ONCE ONCE IVP 10/10/24 19:00 10/10/24 19:01 DC 10/10/24 18:58 Guaifenesin (RobiTUSSin SUGAR-FREE 100 MG/ 5 ML UDCUP) 400 mg Q4H PRN PO cough 10/10/24 20:30 11/09/24 20:29 Heparin Sodium (Porcine) (HEParin 5,000 UNIT VIAL) 5,000 unit BID SQ 10/10/24 21:00 11/09/24 20:59 Hydralazine HCl (APRESOLine 20MG INJ) 10 mg Q6H PRN IV For:SBP above 160;DBP above 90 10/10/24 20:30 11/09/24 20:29 Ipratropium Gallagher (AtrovENT UD) 0.5 MG [id number] IH 10/11/24 00:00 11/10/24 00:00 Nitroglycerin (Nitrostat) 0.4 mg PROTOCOL PRN SL CHEST PAIN 10/10/24 20:30 11/09/24 20:29 Ondansetron HCl (zoFRAN 4MG INJ) 4 mg Q6H PRN IV NAUSEA/VOMITING 10/10/24 20:30 11/09/24 20:29 Oseltamivir Phosphate (Tamiflu) 75 mg ONCE ONCE PO 10/10/24 20:00 10/10/24 20:01 DC 10/10/24 20:04 Oseltamivir Phosphate (Tamiflu) 75 mg Q12H PO 10/11/24 10:00 10/16/24 09:59 Pantoprazole Sodium (PROTonix 40MG TAB) 40 mg DAILY PO 10/11/24 09:00 11/10/24 08:59 Pharmacy Profile Note (Pharmacy Communication) 1 each ONCE MISC 10/10/24 20:30 10/17/24 20:29 UNV Piperacillin Sod/ Tazobactam Sod (Zosyn 3.375gm+NS 50ml) 3.375 gm Q8H IV 10/11/24 04:00 10/21/24 03:59 Vital Signs Date Time Temp Pulse Resp B/P (MAP) Pulse Ox O2 Delivery O2 Flow Rate FiO2 10/10/24 20:04 102.4 10/10/24 19:27 102.4 65 26 112/67 96 Room Air* 0 21 10/10/24 18:58 135 135/72 10/10/24 18:56 120 20 135/72 95 Room Air* 0 21 10/10/24 18:21 99.3 118 20 132/89 96 Room Air 0 2049/SPOKE WITH DARLENE ZAYAS DIGITAL DESIGN ENGINEER HOSPITALIST AND REVIEWED INFLUENZA A, CHEST X- RAY/EKG CONVERSION OF ATRIAL FIBRILLATION AND PNEUMONIA. HE AGREED TO ADMIT PATIENT. Medical Decision Making MDM MDM: DIFFERENTIAL DIAGNOSIS: SEPSIS/PNEUMONIA/BRONCHITIS/ATRIAL FIB WITH A RVR/ELECTROLYTE IMBALANCE/DEHYDRATION/FLU/SARS COVID RATIONALE: TESTS CONSIDERED AND ORDERED SECONDARY TO SHARED DECISION MAKING INCLUDE: LABS, ECG AND RADIOLOGY PREVIOUS OUTSIDE RECORDS REVIEWED: OLD ER VISITS. REVIEWED RISK OF COMPLICATION AND/OR MORBIDITY OR MORTALITY OF PATIENT MANAGEMENT: NONE MEDICATIONS-PER MEDICATION RECONCILIATION NEED FOR HOSPITALIZATION: PATIENT DOES MEET CRITERIA FOR HOSPITALIZATION. PATIENT WILL NEED PULMONARY TOILET, TREATMENT FOR INFLUENZA NEED FOR EMERGENCY MAJOR/MINOR SURGERY: NO THERE ARE NO SOCIAL CONCERNS WITH THIS PATIENT. PRESCRIPTION DRUG MANAGEMENT PRESCRIPTIONS WILL INCLUDE SYMPTOMATIC CARE PATIENT'S PRIOR EXTERNAL MEDICAL RECORDS FROM OTHER ER VISITS WERE REVIEWED BY ME INDICATED. PRIOR TESTING AND RESULTS FROM PREVIOUS VISITS WERE REVIEWED. PRIOR TESTS WERE TAKEN INTO ACCOUNT WITH MEDICAL DECISION MAKING AND RESOURCE UTILIZATION, INDEPENDENT HISTORIAN/HISTORIANS WERE USED TO OBTAIN COMPLETE M EDICAL HISTORY. I INDEPENDENTLY INTERPRETED THE TEST THAT WERE PERFORMED, RESULTS WERE REVIEWED BY ME AND CONSIDERED FINDINGS ON RADIOLOGY IF ORDERED. MEDICAL MANAGEMENT AND EXAMINATION INTERPRETATION DISCUSSIONS WERE HAD BY ME WITH OTHER QUALIFIED HEALTHCARE PROFESSIONALS INDICATED FOR THE PATIENT'S CARE. DX & DISP Disposition: Inpatient Decision to Admit Time: 20:15 Departure Impression: Primary Impression: Right lower lobe pneumonia Additional Impressions: Influenza A, Stage 3 chronic kidney disease, Uncontrolled diabetes mellitus, Acute exacerbation of CHF (congestive heart failure), Atrial fibrillation with rapid ventricular response, Elevated troponin level not due myocardial infarction Condition: Stable Referrals: DAE TITUS NP (PCP) Time of Disposition: 20:15 I have reviewed the case, and I agree with, Diagnosis and Plan ZACHARIAH GUY NP Oct 10, 2024 18:26
[2024-10-10] MEDS: dilTIAZem 25MG INJ IVP ONE (18:58)
[2024-10-10 19:07] LABS: BASOPHILS # (AUTO) 0.06 K/uL (0.00-0.20); BASOPHILS % (AUTO) 0.6 % (0.0-5.0); HEMATOCRIT 43.7 % (36-48); IMMATURE GRANULOCYTE ABSOLUTE 0.03 K/uL (0-1); LYMPHOCYTES # (AUTO) 1.2 K/uL (1.0-4.8); LYMPHOCYTES % (AUTO) 12.5 % (21.0-51.0); MEAN CORPUSCULAR HEMOGLOBIN 27.9 pg (27.0-33.0); MEAN CORPUSCULAR HGB CONC 31.8 g/dL (32.0-36.0); MEAN CORPUSCULAR VOLUME 87.6 fL (79-99); MONOCYTES # (AUTO) 1.1 K/uL (0.1-1.0); MONOCYTES % (AUTO) 11.9 % (3.0-13.0); NEUTROPHILS # (AUTO) 7.1 K/uL (1.8-7.7); NEUTROPHILS % (AUTO) 74.7 % (40.0-77.0); PLATELET COUNT (AUTO) 199 K/uL (130-400); RED BLOOD CELL COUNT(AUTO) 4.99 MIL/uL (4.00-5.50); RED CELL DISTRIBUTION WIDTH 14.2 % (11.0-15.5); WHITE BLOOD COUNT (AUTO) 9.5 K/uL (4.8-10.8)
[2024-10-10 19:12] LABS: CREATININE 1.1 mg/dL (0.5-1.0); POTASSIUM 3.7 mmol/L (3.5-5.1)
[2024-10-10 19:25] LABS: B-TYPE NATRIURETIC PEPTIDE 2600 pg/mL (0-100)
[2024-10-10 19:28] LABS: INFLUENZA TYPE B Negative For Type B (NEGATIVE)
[2024-10-10 19:36] LABS: INFLUENZA TYPE A Positive For Type A (NEGATIVE)
[2024-10-10] MEDS: OSELTAMIVIR PHOSPHATE 75 MG CAP PO ONE (20:04)
[2024-10-10] MEDS: cefTRIAXone 1G VIAL IVP ONE (20:04)
[2024-10-10] MEDS: acetaMINOPHEN 500 MG TABLET PO ONE (20:04)
[2024-10-10] MEDS ORDERED: NITROGLYCERIN 0.4 MG SL TAB SL PRN (20:30)
[2024-10-10] MEDS ORDERED: ondanSETRON 4MG INJ IV PRN (20:30)
[2024-10-10] MEDS: PHARMACY COMMUNICATION MISC ONE (20:30)
[2024-10-10] MEDS ORDERED: hydrALAZine 20MG/ML VIAL IV PRN (20:30)
[2024-10-10] MEDS: AZITHROMYCIN 500MG+NS 250ML 250 ML IVPB STA (20:35)
--- NOTE | 2024-10-10 20:35 | HMCIMG ---
CT HEAD/BRAIN W/O CONTRAST HISTORY: Altered mental status COMPARISON: None TECHNIQUE: Multiple sequential axial images of the head were obtained from the base of the skull through vertex. Patient was not given contrast through intravenous route. FINDINGS: The ventricles and extraventricular CSF spaces are dilated consistent with cerebral atrophy. Nonspecific white matter changes seen. There is no midline shift, mass effect or herniation. No acute intracranial bleed is seen. Visualized portion of the paranasal sinuses are grossly within normal limits. IMPRESSION: 1. No acute intracranial bleed is seen. 2. Atrophy with white matter changes. CT was performed with one or more following dose reduction techniques: automated exposure control, adjustment of the mA and kv according to patient's size, or use of a iterative reconstruction technique.
--- NOTE | 2024-10-10 20:42 | HP ---
History of Present Illness Reason for Visit: weakness Referring MD: Self-referral History of Present Illness Ms. Omer is an 84-year-old female that was seen and examined today on 10/10/2024. Patient is a modest historian and personal health. There was no available family member at bedside. The following was obtained from a combination of patient report, emergency room physician report, and past medical records available to me from a prior admission to the hospital on 08/28/2023. Patient states that she came to the emergency department with a chief complaint of weakness. Onset was three days ago. Location is to bilateral lower extremities. Duration is constant. Character is described as, "I have been spending too much time in bed and I feel forgetful. "There was no alleviating factors. There was no aggravating factors. Patient denies any associated chest pain or shortness and breath. Today in the emergency department CBC unremarkable, BNP 2600, troponin 69, urinalysis has not been collected or sent to lab, influenza is positive, chest x-ray is pending radiology interpretation, CT of head is pending radiology report. Additionally patient arrived with a temperature of 102.4, heart rate 135, respirations 26 and identified source of infection being flu meeting clinical sepsis criteria. Emergency room physician recommended that patient be admitted with a diagnosis of sepsis. Past Medical History Patient History: Unknown MOTHER, , Age: 60 years and older, Cause: Unknown cause of injury FATHER, , Age: 30's - 40, Cause: Drowning and submersion in natural water, undetermined intent, initial encounter BROTHER SISTER SISTER ADDITIONAL PAST MEDICAL HISTORY: [Hypertension, hypothyroidism, hyperlipidemia] SOCIAL HISTORY: [Negative for smoking, alcohol use, drug use. Patient owns her own home and her oldest son lives with her, Austen Omer. Patient has good access to health care through her insurance. Patient is typically independent of her ADLs. Patient denies difficulty paying her bills. 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 Dyspnea, Edema, Lt Headedness, Other Gastrointestinal: No: Nausea, Vomiting, Abdominal Pain, Diarrhea, Constipation, Melena, Hematochezia, Other Genitourinary: No Dysuria, No Frequency, No Incontinence, No Hematuria, No Retention, No Other Musculoskeletal: No: other, neck pain, shoulder pain, arm pain, back pain, hand pain, leg pain, foot pain Skin: No Urticaria, No Rash, No Other Neurological: Weakness; No: Numbness, Incoordination, Change in speech, Confusion, Seizures, Other Allergies: Coded Allergies: No Known Drug Allergies (Verified Allergy, Unknown, 02/02/20) Scheduled Apixaban (Eliquis), 2.5 MG PO BID Atorvastatin Calcium (Atorvastatin Calcium), 20 MG PO HS, (Reported) Diltiazem HCl (Cardizem Cd 120 mg), 120 MG PO DAILY Levofloxacin (Levofloxacin), 750 MG PO DAILY Levothyroxine Sodium (Synthroid 25 Mcg Tab), 25 MCG PO DAILY@0630 Metoprolol Succinate (Toprol Xl), 100 MG PO BID Exam Vital Signs Vital Signs Date Time Temp Pulse Resp B/P (MAP) Pulse Ox O2 Delivery O2 Flow Rate FiO2 10/10/24 20:04 102.4 10/10/24 19:27 65 26 112/67 96 Room Air* 0 21 General Appearance: Alert, Oriented X3, Cooperative, mild distress HEENT: Atraumatic, EOMI Respiratory: Other (Positive right lower lobe rhonchi) Cardiovascular: Regular rate, Regular rhythm, Other (Positive tachycardia) Abdominal: Normal bowel sounds, Soft, No tenderness Extremities: No edema Skin: No significant lesion Neuro: Normal speech, Strength at 5/5 X4 ext, Sensation intact, Cranial nerves 3-12 NL Psych/Mental Status: Mental status NL, Mood NL, Thoughts/Content NL Assessment/Plan ASSESSMENT: [ Sepsis, POA Influenza A positive, POA Fluid overload, POA BISHNU versus CKD, POA Elevated troponin, POA elevated BNP, POA AFib with RVR exacerbation, POA Right lower lobe pneumonia, POA Hypertension Hypothyroidism Hyperlipidemia] PLAN: [ Admit patient to medical floor as inpatient status. Place patient on telemetry monitoring. Zosyn 3.375 g IV every 12 hours. Decided against fluid resuscitation because BNP is 2600 As-needed Tylenol for fever Check procalcitonin, follow up with the results Check lactic acid, follow up with the results Check blood culture, follow up with the results Check respiratory culture, follow up with the results Requested for urinalysis to be sent to lab for analysis. Tamiflu 75 mg by mouth twice daily Monitor intake and output every shift Weight patient daily 1500 mL daily fluid restriction Defer decision for diuresis to daytime service tomorrow Avoid nephrotoxic agents when possible Renally dose all medications when possible Calculate Fena Check urine sodium, creatinine, osmolality Administer aspirin 162 mg by mouth times 1 dose Continue aspirin 81 mg by mouth once daily Nitroglycerin sublingual 0.4 mg as needed for chest pain every 5 minutes, max 3 doses, hold for systolic blood pressure less than 100 mmHg. Trend troponin every 6 hours x 3 sets Supplemental oxygen to maintain O2 saturation greater than 92% Consult cardiology if any elevation in troponin or troponin uptrending Reviewed 2D echo from 08/28/2023 in reference to patient's elevated BNP: Left ventricular cavity size is normal.LVEF is >70%. E-a fusion. The right ventricle is normal size.The right ventricular systolic function is normal. The left atrium is mildly to moderately dilated.The right atrium is severely dilated. Mitral regurgitation is moderate. There is mild tricuspid regurgitation present.Right ventricular systolic pressure is estimage at 29 mmHg. Consider resuming home medications once they are reconciled. For now, Hydralazine 10 mg IV every 4 hours for systolic blood pressure greater than 160 mmHg Check TSH in a.m. Metoprolol 12.5 mg by mouth twice daily GI prophylaxis, Protonix DVT prophylaxis, heparin ADVANCED CARE PLANNING 1. Which of the following were discussed? Hospice Care - Yes Therapeutic options - Yes Advance Directives - Yes- patient states he does not have any advance directives in place at this time, however her son Austen can make decisions for her if she becomes unable. Other discussions - patient wishes to remain a full code at this time 2. Discussed with who? Patient 3. Voluntary nature of this service was explained to the patient? Yes 4. Amount of time spent - __ 16 minutes 5. Reviewed by Physician? (if this service was performed by NPP) Yes This document was generated in part using voice recognition software, occasional wrong word or sound alike substitutions may have occurred due to the inherent limitations of voice recognition software. Read the chart carefully and recognize using context, where the substitutions have occurred. Although every effort was made to edit the content, living specialist and typing errors may occur ATTESTATION BY PHYSICIAN I have seen and examined the patient. I reviewed the documentation, medical decision making, and treatment plan as noted by the mid-level provider above. I agree with the findings and plan of care. DARLENE ZAYAS [facility] Oct 10, 2024 20:42
[2024-10-10 20:50] VITALS: PULSE 80; RESP 20; O2SAT 96
[2024-10-10] MEDS: ALBUTEROL 0.083% 2.5 MG/3 ML INH IH ONE (20:50)
[2024-10-10] MEDS: ASPIRIN 81MG CHEW TAB PO ONE (20:56)
--- NOTE | 2024-10-10 21:05 | HMCIMG ---
CHEST 1VW HISTORY: Shortness of breath COMPARISON: 08/28/2023 FINDINGS: A frontal projection of the chest was obtained. Mild bilateral pulmonary infiltrates are seen may be related to mild pulmonary vascular congestion with possible superimposed pneumonitis. The heart is borderline enlarged. Degenerative changes are seen. Aortic calcifications are seen. IMPRESSION: 1. Mild bilateral pulmonary infiltrates are seen may be related to mild pulmonary vascular congestion with possible superimposed pneumonitis.
[2024-10-10] MEDS: ALBUTEROL 0.083% 2.5 MG/3 ML INH IH SCH (21:30)
[2024-10-10] MEDS ORDERED: LEVALBUTEROL HCL 0.63 MG/3 ML NEB SCH (21:30)
[2024-10-10] MEDS: HEParin 5,000 UNIT VIAL SQ SCH (21:36)
[2024-10-10] MEDS: metoPROLOL tartRATE 25 MG TAB PO SCH (21:36)
[2024-10-10 21:45] VITALS: TEMP 100.4
--- NOTE | 2024-10-10 23:10 | NUR ---
KATE GROSS (DAUGHTER) [phone]
[2024-10-11] VITALS (8 sets, daily range): BP systolic 133; BP diastolic 79; PULSE 77–131; RESP 19–20; TEMP 97.6; O2SAT 96–99
--- NOTE | 2024-10-11 00:23 | NUR ---
PENDING FAMILY MEMBER TO BRING HOME MEDICATIONS LIST
[2024-10-11] MEDS: IpraTROPium 0.5 MG/2.5 ML INH IH SCH (01:31)
[2024-10-11] MEDS: acetaMINOPHEN 325 MG TAB PO PRN (04:15)
[2024-10-11] MEDS: ZOSYN 3.375GM +NS 50ML IV SCH (04:53)
[2024-10-11 06:09] LABS: APPEARANCE,URINE CLEAR (CLEAR); BILIRUBIN,URINE NEGATIVE (NEGATIVE); COLOR,URINE YELLOW (YELLOW); GLUCOSE, URINE (UA) NEGATIVE (NEGATIVE); KETONES,URINE NEGATIVE (NEGATIVE); LEUKOCYTE ESTERASE ,URINE NEGATIVE Leu/uL (NEGATIVE); NITRATE,URINE NEGATIVE (NEGATIVE); OCCULT BLOOD,URINE SMALL (NEGATIVE); PH,URINE 5.5 (5.0-8.0); PROTEIN,URINE 30 mg/dL (NEGATIVE); UROBILINOGEN,URINE 0.2 mg/dL (0.2-1.0)
[2024-10-11 06:12] LABS: CREATININE,URINE RANDOM 124.48 mg/dL (30-135); SODIUM,URINE RANDOM 48 mmol/l (40-220)
[2024-10-11 06:13] LABS: ADD UA MICROSCOPIC YES
[2024-10-11 06:16] LABS: MUCUS,URINE RARE LPF (None Seen); SQUAMOUS EPITHELIAL CELL,UR RARE /HPF (0-2)
--- NOTE | 2024-10-11 06:24 | EKG ---
[facility] Test Date: 2024-10-10 Test Time: 19:36:19 Pat Name: TOMY GROSS Department: [facility]IP Room: ED 20 Gender: F Gasket Maker: [id number] : [id number] Requested By: ZACHARIAH GUY Order Number: [id number] Reading MD: Kraig Mccallum Measurements Intervals Hooper Rate: 81 P: 105 CO: 179 QRS: 85 QRSD: 83 T: 66 QT: 490 QTc: 568 Interpretive Statements Sinus rhythm Repol abnrm suggests ischemia, diffuse leads Prolonged QT interval Compared to ECG 10/10/2024 18:32:23 Prolonged QT interval now present Atrial fibrillation no longer present Right-axis deviation no longer present Possible ischemia still present Electronically Signed On 10-11-2024 14:48:36 MERCHANDISER by Kraig Mccallum Please click the below link to view image of tracing.
--- NOTE | 2024-10-11 06:24 | EKG ---
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
[2024-10-11 07:36] LABS: BASOPHILS # (AUTO) 0.02 K/uL (0.00-0.20); BASOPHILS % (AUTO) 0.3 % (0.0-5.0); EOSINOPHILS # (AUTO) 0.13 K/uL (0.00-0.70); HEMATOCRIT 38.7 % (36-48); IMMATURE GRANULOCYTE ABSOLUTE 0.04 K/uL (0-1); LYMPHOCYTES # (AUTO) 1.3 K/uL (1.0-4.8); LYMPHOCYTES % (AUTO) 20.6 % (21.0-51.0); MEAN CORPUSCULAR HGB CONC 31.8 g/dL (32.0-36.0); MONOCYTES # (AUTO) 1.1 K/uL (0.1-1.0); MONOCYTES % (AUTO) 16.9 % (3.0-13.0); NEUTROPHILS # (AUTO) 3.9 K/uL (1.8-7.7); NEUTROPHILS % (AUTO) 59.6 % (40.0-77.0); PLATELET COUNT (AUTO) 148 K/uL (130-400); RED CELL DISTRIBUTION WIDTH 14.2 % (11.0-15.5); WHITE BLOOD COUNT (AUTO) 6.5 K/uL (4.8-10.8)
[2024-10-11 08:04] LABS: MAGNESIUM 1.9 mg/dL (1.80-2.40); PHOSPHORUS 3.7 mg/dL (2.5-4.9); POTASSIUM 3.6 mmol/L (3.5-5.1); THYROID STIMULATING HORMONE 1.3 uIU/mL (0.36-3.74)
[2024-10-11] MEDS ORDERED: PoTASSium chloRIDE 20MEQ/100ML 100 ML IV PRN (08:30)
--- NOTE | 2024-10-11 08:36 | PN ---
[facility] PROGRESS NOTE Date of Service: Oct 11, 2024 Time of Service: 08:16 SUBJECTIVE: [ ] This is a 84-year-old female was admitted on 10/10/2024 with chief complaints of generalized weakness in lower extremity in edematous test ER workup patient was found with elevated BNP 2600, influenza a positive last echo was done 2023 we will repeat on this admission we will consult business development executive's. Given to patient had a episode of AFib with RVR and elevated troponin. Started patient on Lasix we will monitor patient closely and wait for business development executive's input. REVIEW OF SYSTEMS CONSTITUTIONAL: Denies fevers, chills, or night sweats. No unintentional weight loss reported. NEUROLOGICAL: Denies headache, amaurosis fugax, motor weakness, sensory deficit, vertigo/spinning sensation, gait abnormalities, or tremors. ENT: No hearing loss, otalgia, otorrhea, rhinitis, rhinorrhea, hoarseness, or sore throat. CARDIOVASCULAR: Denies any exertional angina, dyspnea on exertion, orthopnea, paroxysmal nocturnal dyspnea, palpitations, life-threatening arrhythmias, claudication. PULMONARY: Denies any shortness of breath, cough, phlegm/sputum, hemoptysis, pleuritic chest pain. SLEEP: Denies morning headaches, daytime somnolence or napping. Denies difficulty falling asleep, staying asleep, waking from sleep. Denies knowledge of snoring. GASTROINTESTINAL: Denies any type of dysphagia to either liquids or solids. Denies nausea, vomiting, pyrosis, early satiety, abdominal pain, diarrhea, constipation, or changes in stool consistency or caliber. Denies coffee-ground emesis, hematemesis, hematochezia, or melanotic stools. GENITOURINARY: Denies frequency, urgency, nocturia, hematuria or incontinence (Storage/Irritative symptoms.) Low urinary stream, straining to void, urinary intermittency or hesitancy, splitting of the voiding stream, terminal dribbling. ENDOCRINOLOGIC: Denies polyuria, polydipsia, polyphagia or heat/cold intolerances. HEMATOLOGIC: Denies thrombophilia/previous clots, or coagulopathy/bleeding disorders. ONCOLOGIC: Denies personal history of malignancy. DERMATOLOGIC: Denies rashes or pruritus. PSYCHIATRIC: Denies any suicidal or homicidal ideation. Denies hallucinations. PHYSICAL EXAM GENERAL APPEARANCE: The patient is awake, alert, and oriented, in no acute cardiopulmonary distress. NEUROLOGICAL: Cranial nerves II-XII grossly intact. Motor is 5/5 in bilateral upper and lower extremities proximal to distal. No sensory deficits. HEENT: Face is symmetric. Pupils are equal and reactive. Extraocular movements are intact. NECK: Supple. No JVD. No thyromegaly. No submental, submandibular, pre- /postauricular, occipital or supraclavicular lymphadenopathy. CHEST: Normal chest expansion. No Telemetry. LUNGS: Absence of any rales, rhonchi or any wheezing. CARDIOVASCULAR: Regular. S1 and S2 normal. No appreciable rubs, murmurs or gallops. ABDOMEN: Soft, nontender, and nondistended. There is no rebound, voluntary guarding, or rigidity. : Deferred. No [place]. EXTREMITIES: Non-edematous and not cyanotic. No clubbing. Good capillary refill. SKIN: No skin breakdown. Vital Signs (last 8hr) Date Time Temp Pulse Resp B/P (MAP) Pulse Ox O2 Delivery O2 Flow Rate FiO2 10/11/24 07:21 20 N/A Room Air 0.0 21 10/11/24 07:21 79 20 10/11/24 06:05 99.0 85 20 127/56 95 Room Air* 0 21 10/11/24 04:15 98.6 78 20 110/45 96 Room Air* 0 21 10/11/24 01:31 77 20 10/11/24 01:31 77 20 N/A Room Air 0.0 10/11/24 00:24 99.5 67 18 109/57 96 Room Air* 0 21 LABS: Laboratory: Test 10/11/24 06:57 10/11/24 05:55 10/10/24 20:06 10/10/24 19:08 Range/Units Sodium Level 139 136-145 mmol/L Potassium Level 3.6 3.5-5.1 mmol/L Chloride Level 102 101-111 mmol/L Carbon Dioxide Level 29 21-32 mmol/L Blood Urea Nitrogen 14 7-18 mg/dL Creatinine 1.0 0.5-1.0 mg/dL Glomerular Filtration Rate Calc 55 >90 mL/min Random Glucose 107 H 70-105 mg/dL Total Calcium 8.3 L 8.5-10.1 mg/dL Phosphorus Level 3.7 2.5-4.9 mg/dL Magnesium Level 1.90 1.80-2.40 mg/dL Troponin I High Sensitivity 103 *H 4-50 ng/L Thyroid Stimulating Hormone (TSH) 1.30 # 0.36-3.74 uIU/mL Urine Color YELLOW YELLOW Urine Appearance CLEAR CLEAR Urine pH 5.5 5.0-8.0 Urine Specific [place] 1.020 1.001-1.031 Urine Protein 30 H NEGATIVE mg/dL Urine Glucose (UA) NEGATIVE NEGATIVE mg/dL Urine Ketones NEGATIVE NEGATIVE mg/dL Urine Occult Blood SMALL H NEGATIVE Urine Nitrate NEGATIVE NEGATIVE Urine Bilirubin NEGATIVE NEGATIVE mg/dL Urine Urobilinogen 0.2 0.2-1.0 mg/dL Urine Leukocyte Esterase NEGATIVE NEGATIVE Steven/uL Urine RBC 11-25 H 0-1 /HPF Urine WBC 2-5 H 0-1 /HPF Urine Squamous Epithelial Cells RARE 0-2 /HPF Urine Bacteria None None Seen /HPF Urine Random Creatinine 124.48 30-135 mg/dL Urine Random Sodium 48 40-220 mmol/l Lactic Acid Level 2.0 0.8-2.5 mmol/L Influenza Type A Antigen Positive For Type A *A NEGATIVE Influenza Type B Antigen Negative For Type B NEGATIVE Test 10/10/24 18:53 10/10/24 18:26 Range/Units White Blood Count 9.5 4.8-10.8 K/uL Red Blood Count 4.99 4.00-5.50 MIL/uL Hemoglobin 13.9 12.0-16.0 g/dL Hematocrit 43.7 36-48 % Mean Corpuscular Volume 87.6 79-99 fL Mean Corpuscular Hemoglobin 27.9 27.0-33.0 pg Mean Corpuscular Hemoglobin Concent 31.8 L 32.0-36.0 g/dL Red Cell Distribution Width 14.2 11.0-15.5 % Platelet Count 199 130-400 K/uL Mean Platelet Volume 11.6 H 7.5-10.5 fL Immature Granulocyte % (Auto) 0.3 0-1 % Neutrophils (%) (Auto) 74.7 40.0-77.0 % Lymphocytes (%) (Auto) 12.5 L 21.0-51.0 % Monocytes (%) (Auto) 11.9 3.0-13.0 % Eosinophils (%) (Auto) 0.0 0.0-8.0 % Basophils (%) (Auto) 0.6 0.0-5.0 % Neutrophils # (Auto) 7.1 1.8-7.7 K/uL Lymphocytes # (Auto) 1.2 1.0-4.8 K/uL Monocytes # (Auto) 1.1 H 0.1-1.0 K/uL Eosinophils # (Auto) 0.00 0.00-0.70 K/uL Basophils # (Auto) 0.06 0.00-0.20 K/uL Absolute Immature Granulocyte (auto 0.03 0-1 K/uL Nucleated Red Blood Cells 0.0 0.0-0.19 % B-Type Natriuretic Peptide 2600 H 0-100 pg/mL Procalcitonin < 0.05 L 0.05-0.5 ng/mL SARS-CoV-2 Antigen (Rapid) PRESUMPTIVE NEGATIVE NEGATIVE Current Medications Medications (Trade) Dose Ordered Sig/Artie Route PRN Reason Start Time Stop Time Status Last Admin Dose Admin Acetaminophen (TYLenol 325MG TAB) 650 mg Q6H PRN PO TEMPERATURE GREATER THAN 101.5 10/10/24 20:30 11/09/24 20:29 10/11/24 04:15 650 MG Albuterol Sulfate (Proventil 0.083% 2.5mg/3ml) 2.5 mg Q6H IH 10/10/24 21:30 11/09/24 21:29 10/11/24 07:29 2.5 MG Aspirin (Aspirin 81mg Ec Tab) 81 mg DAILY PO 10/11/24 09:00 11/10/24 08:59 Azithromycin 250 ml @ 250 mls/hr ONCE STAT IVPB 10/10/24 19:35 10/10/24 20:34 DC 10/10/24 20:35 250 MLS/HR Guaifenesin (RobiTUSSin SUGAR-FREE 100 MG/ 5 ML UDCUP) 400 mg Q4H PRN PO cough 10/10/24 20:30 11/09/24 20:29 Heparin Sodium (Porcine) (HEParin 5,000 UNIT VIAL) 5,000 unit BID SQ 10/10/24 21:00 11/09/24 20:59 10/10/24 21:36 5,000 UNIT Hydralazine HCl (APRESOLine 20MG INJ) 10 mg Q6H PRN IV For:SBP above 160;DBP above 90 10/10/24 20:30 11/09/24 20:29 Ipratropium [place] (AtrovENT UD) 0.5 MG [id number] IH 10/11/24 00:00 11/10/24 00:00 10/11/24 07:29 0.5 MG Levalbuterol HCl (Xopenex Neb Soln) 0.63 mg Q6H NEB 10/10/24 21:30 10/10/24 21:11 DC Metoprolol Tartrate (loprESSOR) 12.5 mg BID PO 10/10/24 21:00 11/09/24 20:59 10/10/24 21:36 12.5 MG Nitroglycerin (Nitrostat) 0.4 mg PROTOCOL PRN SL CHEST PAIN 10/10/24 20:30 11/09/24 20:29 Ondansetron HCl (zoFRAN 4MG INJ) 4 mg Q6H PRN IV NAUSEA/VOMITING 10/10/24 20:30 11/09/24 20:29 Oseltamivir Phosphate (Tamiflu) 75 mg Q12H PO 10/11/24 10:00 10/16/24 09:59 Pantoprazole Sodium (PROTonix 40MG TAB) 40 mg DAILY PO 10/11/24 09:00 11/10/24 08:59 Piperacillin Sod/ Tazobactam Sod (Zosyn 3.375gm+NS 50ml) 3.375 gm Q8H IV 10/11/24 04:00 10/21/24 03:59 10/11/24 04:53 3.375 GM DIAGNOSTICS / RADIOLOGY: [ ] ASSESSMENT: Sepsis,secondary to viral syndrome and PNA POA Influenza A positive, POA suspected heart failure:Fluid overload, POA BISHNU versus CKD, POA Elevated troponin, POA elevated BNP, POA AFib with RVR exacerbation, POA Right lower lobe pneumonia, POA suspecting aspiration pna. POA Hypertension Hypothyroidism Hyperlipidemia] PLAN: [ ] Admit: PCCU condition: Guarded Status: Full code IVF: Hep-Lock fluids contraindicated Diet: Heart healthy Consultants business development executive's Diuretics Lasix 40 mg IV b.i.d., metoprolol succinate ER 100 mg one of her home meds, and aspirin review external medication patient is not on Eliquis however waiting for RN to reconciled meds. Oxygen supplement to keep O2 sats above 92% as needed. Aspiration precautions head of the bed at 45 at all times. Speech consulted Antibiotics:Tamiflu 75 mg po bid , Zosyn IV every8 hours 3.375 g Continue bronchodilators Test: 2D echo complete to evaluate LV function Labs cbc, cmp, mag+ Replace electrolytes as needed as per protocol to keep potassium above 4.0 magnesium 2.0. Home medications pending to be reviewed by RN nurse. still pending PRN: MEDICATIONS Tylenol 650 mg po every 4 hrs for fever zofran 4 mg IV every 6 hrs for n/v Hydralazine 5 mg IV every 4 hrs systolic pressure > 160 bowel regiment: lactulose 20 gm PO BID PRN constipation Pain management: None Supportive measures: DVT ppx, GI ppx all questions answered time spent: > 35 min Supervising MD: Dr. Lety Xie c/d This document was generated in part using voice recognition software, occasional wrong word or sound alike substitutions may have occurred due to the inherent limitations of voice recognition software. Read the chart carefully and recognize using context, where the substitutions have occurred. Although every effort was made to edit the content, supervisor rubber covering and typing errors may occur ATTESTATION BY PHYSICIAN I have seen and examined the patient. I reviewed the documentation, medical decision making, and treatment plan as noted by the mid-level provider above. I agree with the findings and plan of care. TOMAS DAVILA MD, ELIZABETH NP Oct 11, 2024 08:36
[2024-10-11] MEDS: furoSEMIDE 40MG VIAL IV SCH (09:16)
[2024-10-11] MEDS: metOPROLol sucCINATE 50 MG TAB.SR.24H PO SCH (09:16)
[2024-10-11] MEDS: ASPIRIN 81 MG EC TAB PO SCH (09:17)
[2024-10-11] MEDS: OSELTAMIVIR PHOSPHATE 75 MG CAP PO SCH (09:17)
[2024-10-11] MEDS: PANTOPrazole 40 MG TAB DR PO SCH (09:17)
[2024-10-11 09:41] LABS: CHOLESTEROL 162 mg/dL (<200); HDL CHOLESTEROL 55 mg/dL (35-85); LDL DIRECT 97 mg/dL (0-99); TRIGLYCERIDES 93 mg/dL (30-200)
[2024-10-11 09:50] LABS: ALBUMIN 3.2 g/dL (3.5-5.0); BILIRUBIN,DIRECT 0.2 mg/dL (0.0-0.3); BILIRUBIN,TOTAL 0.8 mg/dL (0.2-1.0); TOTAL PROTEIN, SERUM 6.5 g/dL (6.0-8.3)
--- NOTE | 2024-10-11 12:35 | NUR ---
DCP Patient states lives alone in a house with a tub. 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 States able to complete ADL's on her own. Denies medical devices. Denied home health services, home care provider or dialysis. PCP - Kayla Caballero NP Pharmacy - [address] Upon discharge, Zeus Omer, Son [phone]. At this time, denies any additional needs upon discharge. Patient tested positive Flu; droplet precautions. Cardiac work up in progress. Addendum: 10/11/24 at 1240 by ARTURO SPANGLER RN CM Amended: Links added.
[2024-10-11] MEDS ORDERED: ASPI-1443 PO (13:02)
--- NOTE | 2024-10-11 13:05 | CONS ---
Cardiac Consult Note CONSULT NOTE DATE OF SERVICE: Oct 10, 2024 at 18:18 REFERRING PROVIDER: ABIGAIL FERNANDEZ MD REASON FOR CONSULT: Shortness of breath pulmonary edema HPI: 84-year-old female who last saw Dr. Bandar sandoval as an outpatient in December of 2023 and at that time because of new onset AFib and RVR and low-dose anticoagulation he as per follow up in 4-6 weeks which unfortunately was not kept. She does have a history of mild coronary artery disease after coronary angiogram on March 06, 2018 revealed a 20-25% lad stenosis. Patient was brought in by her son after he came home from work in the morning and found her quite confused not oriented to person place or time and noted several areas where patient had urinated in the house and also she had not done any the chores that they have with the animals around the house done that morning. Patient was very confused and upon evaluation here she was noted to be positive for influenza type A. Patient does not remember these events upon my evaluation with her today. We were called to see patient as part of her workup she had nonspecific elevation of her troponins and she also had a significantly elevated brain natriuretic peptide of greater than 2600. This number has since improved and she has been diuresed. Echocardiogram was scheduled and ordered but has not been interpreted. Patient currently denies any chest pain pressure tightness. She denies any lower extremity swelling or palpitations. When she was last seen by Dr. Sandoval medications on her list included levothyroxine at 50 mcg daily Eliquis 2.5 mg twice daily, atorvastatin 20 mg nightly, diltiazem ER 120 mg daily, metoprolol succinate 100 mg twice daily and she has no known allergies. ROS: No fever, headache, chest pain, abdominal pain, nausea, vomiting, or diarrhea. PMHX: Atrial fibrillation and hypertension Dyslipidemia Octogenarian state Minimal coronary artery disease with an LAD stenosis of 25% on a coronary angiogram March 06, 2018 PSHX: Negative FH: Negative SOCIAL: Nonsmoker nondrinker PHYSICAL EXAMINATION: GENERAL: No acute distress. HEENT: Normocephalic, atraumatic. CARDIAC: Positive S1 and S2 irregularly irregular. No murmurs. LUNGS: Clear to auscultation bilaterally. ABDOMEN: Bowel sounds present, soft, nontender. EXTREMITIES: No edema bilaterally. NEUROLOGIC: Cranial nerves 2-12 grossly intact. PSYCHIATRIC: Calm. ASSESSMENT: Acute diastolic congestive heart failure present on admission History of persistent atrial fibrillation on anticoagulation Octogenarian state Hypertension Dyslipidemia Influenza type a infection on admission PLAN: At this time do agree with diuresis. We will check 2D echocardiogram to confirm patient still has preserved left ventricular function. Continue with anticoagulation for her persistent AFib. Continue with beta blockade and calcium channel digna for rate control. Do not think any ischemic evaluation is warranted at this time. Further recommendations to follow pending results of 2D echocardiogram. Continue with IV diuresis today and consider switching over to oral diuresis tomorrow. Vital Signs 10/10/24 10/10/24 10/10/24 10/10/24 18:21 18:56 18:58 19:27 Temp 99.3 102.4 Pulse 118 120 135 65 Resp 20 20 26 B/P (MAP) 132/89 135/72 135/72 112/67 Pulse Ox 96 95 96 O2 Delivery Room Air Room Air* Room Air* O2 Flow Rate 0 0 0 FiO2 10/10/24 10/10/24 10/10/24 10/10/24 20:04 20:50 20:50 21:43 Temp 102.4 100.4 Pulse 80 80 98 Resp 20 20 24 B/P (MAP) 114/57 Pulse Ox 96 O2 Delivery N/A Room Air Room Air* O2 Flow Rate 0.0 0 FiO2 10/11/24 10/11/24 10/11/24 10/11/24 00:24 01:31 01:31 04:15 Temp 99.5 98.6 Pulse 67 77 77 78 Resp 18 20 20 20 B/P (MAP) 109/57 110/45 Pulse Ox 96 96 O2 Delivery Room Air* N/A Room Air Room Air* O2 Flow Rate 0 0.0 0 FiO2 10/11/24 10/11/24 10/11/24 10/11/24 06:05 07:21 07:21 08:00 Temp 99.0 97.9 Pulse 85 79 98 Resp 20 20 20 18 B/P (MAP) 127/56 113/56 Pulse Ox 95 99 O2 Delivery Room Air* N/A Room Air Room Air* O2 Flow Rate 0 0.0 0 FiO2 10/11/24 12:10 Pulse 92 Resp 20 Laboratory Tests Test 10/10/24 18:26 10/10/24 18:53 10/10/24 19:08 10/10/24 20:06 SARS-CoV-2 Antigen (Rapid) PRESUMPTIVE NEGATIVE White Blood Count 9.5 K/uL (4.8-10.8) Red Blood Count 4.99 MIL/uL (4.00-5.50) Hemoglobin 13.9 g/dL (12.0-16.0) Hematocrit 43.7 % (36-48) Mean Corpuscular Volume 87.6 fL (79-99) Mean Corpuscular Hemoglobin 27.9 pg (27.0-33.0) Mean Corpuscular Hemoglobin Concent 31.8 g/dL (32.0-36.0) Red Cell Distribution Width 14.2 % (11.0-15.5) Platelet Count 199 K/uL (130-400) Mean Platelet Volume 11.6 fL (7.5-10.5) Immature Granulocyte % (Auto) 0.3 % (0-1) Neutrophils (%) (Auto) 74.7 % (40.0-77.0) Lymphocytes (%) (Auto) 12.5 % (21.0-51.0) Monocytes (%) (Auto) 11.9 % (3.0-13.0) Eosinophils (%) (Auto) 0.0 % (0.0-8.0) Basophils (%) (Auto) 0.6 % (0.0-5.0) Neutrophils # (Auto) 7.1 K/uL (1.8-7.7) Lymphocytes # (Auto) 1.2 K/uL (1.0-4.8) Monocytes # (Auto) 1.1 K/uL (0.1-1.0) Eosinophils # (Auto) 0.00 K/uL (0.00-0.70) Basophils # (Auto) 0.06 K/uL (0.00-0.20) Absolute Immature Granulocyte (auto 0.03 K/uL (0-1) Nucleated Red Blood Cells 0.0 % (0.0-0.19) Sodium Level 137 mmol/L (136-145) Potassium Level 3.7 mmol/L (3.5-5.1) Chloride Level 99 mmol/L (101-111) Carbon Dioxide Level 28 mmol/L (21-32) Blood Urea Nitrogen 12 mg/dL (7-18) Creatinine 1.1 mg/dL (0.5-1.0) Glomerular Filtration Rate Calc 49 mL/min (>90) Random Glucose 132 mg/dL (70-105) Lactic Acid Level 2.0 mmol/L (0.8-2.5) 2.0 mmol/L (0.8-2.5) Total Calcium 9.0 mg/dL (8.5-10.1) Troponin I High Sensitivity 69 ng/L (4-50) B-Type Natriuretic Peptide 2600 pg/mL (0-100) Procalcitonin < 0.05 ng/mL (0.05-0.5) Influenza Type A Antigen Positive For Type A Influenza Type B Antigen Negative For Type B Test 10/11/24 00:55 10/11/24 05:55 10/11/24 06:57 Troponin I High Sensitivity 95 ng/L (4-50) 103 ng/L (4-50) Urine Color YELLOW (YELLOW) Urine Appearance CLEAR (CLEAR) Urine pH 5.5 (5.0-8.0) Urine Specific [place] 1.020 (1.001-1.031) Urine Protein 30 mg/dL (NEGATIVE) Urine Glucose (UA) NEGATIVE mg/dL (NEGATIVE) Urine Ketones NEGATIVE mg/dL (NEGATIVE) Urine Occult Blood SMALL (NEGATIVE) Urine Nitrate NEGATIVE (NEGATIVE) Urine Bilirubin NEGATIVE mg/dL (NEGATIVE) Urine Urobilinogen 0.2 mg/dL (0.2-1.0) Urine Leukocyte Esterase NEGATIVE Steven/uL Urine RBC 11-25 /HPF (0-1) Urine WBC 2-5 /HPF (0-1) Urine Squamous Epithelial Cells RARE /HPF (0-2) Urine Bacteria None /HPF (None Seen) Urine Random Creatinine 124.48 mg/dL (30-135) Urine Random Sodium 48 mmol/l (40-220) White Blood Count 6.5 K/uL (4.8-10.8) Red Blood Count 4.40 MIL/uL (4.00-5.50) Hemoglobin 12.3 g/dL (12.0-16.0) Hematocrit 38.7 % (36-48) Mean Corpuscular Volume 88.0 fL (79-99) Mean Corpuscular Hemoglobin 28.0 pg (27.0-33.0) Mean Corpuscular Hemoglobin Concent 31.8 g/dL (32.0-36.0) Red Cell Distribution Width 14.2 % (11.0-15.5) Platelet Count 148 K/uL (130-400) Mean Platelet Volume 12.0 fL (7.5-10.5) Immature Granulocyte % (Auto) 0.6 % (0-1) Neutrophils (%) (Auto) 59.6 % (40.0-77.0) Lymphocytes (%) (Auto) 20.6 % (21.0-51.0) Monocytes (%) (Auto) 16.9 % (3.0-13.0) Eosinophils (%) (Auto) 2.0 % (0.0-8.0) Basophils (%) (Auto) 0.3 % (0.0-5.0) Neutrophils # (Auto) 3.9 K/uL (1.8-7.7) Lymphocytes # (Auto) 1.3 K/uL (1.0-4.8) Monocytes # (Auto) 1.1 K/uL (0.1-1.0) Eosinophils # (Auto) 0.13 K/uL (0.00-0.70) Basophils # (Auto) 0.02 K/uL (0.00-0.20) Absolute Immature Granulocyte (auto 0.04 K/uL (0-1) Nucleated Red Blood Cells 0.0 % (0.0-0.19) White Cell Morphology Comment See comments Sodium Level 139 mmol/L (136-145) Potassium Level 3.6 mmol/L (3.5-5.1) Chloride Level 102 mmol/L (101-111) Carbon Dioxide Level 29 mmol/L (21-32) Blood Urea Nitrogen 14 mg/dL (7-18) Creatinine 1.0 mg/dL (0.5-1.0) Glomerular Filtration Rate Calc 55 mL/min (>90) Random Glucose 107 mg/dL (70-105) Total Calcium 8.3 mg/dL (8.5-10.1) Phosphorus Level 3.7 mg/dL (2.5-4.9) Magnesium Level 1.90 mg/dL (1.80-2.40) Total Bilirubin 0.8 mg/dL (0.2-1.0) Direct Bilirubin 0.2 mg/dL (0.0-0.3) Aspartate Amino Transf (AST/SGOT) 18 U/L (10-37) Alanine Aminotransferase (ALT/SGPT) 14 U/L (12-78) Alkaline Phosphatase 64 U/L (50-136) B-Type Natriuretic Peptide 989 pg/mL (0-100) Total Protein 6.5 g/dL (6.0-8.3) Albumin 3.2 g/dL (3.5-5.0) Triglycerides Level 93 mg/dL (30-200) Cholesterol Level 162 mg/dL (<200) LDL Cholesterol 97 mg/dL (0-99) HDL Cholesterol 55 mg/dL (35-85) Thyroid Stimulating Hormone (TSH) 1.30 uIU/mL (0.36-3.74) Current Medications Medications Dose Ordered Sig/Artie Route PRN Reason Start Time Stop Time Status Last Admin Diltiazem HCl 20 mg ONCE ONCE IVP 10/10/24 19:00 10/10/24 19:01 DC 10/10/24 18:58 Acetaminophen 1,000 mg ONCE ONCE PO 10/10/24 19:30 10/10/24 19:53 DC 10/10/24 20:04 Ceftriaxone Sodium 1 gm ONCE ONCE IVP 10/10/24 20:00 10/10/24 20:01 DC 10/10/24 20:04 Azithromycin 250 ml @ 250 mls/hr ONCE STAT IVPB 10/10/24 19:35 10/10/24 20:34 DC 10/10/24 20:35 Oseltamivir Phosphate 75 mg ONCE ONCE PO 10/10/24 20:00 10/10/24 20:01 DC 10/10/24 20:04 Albuterol Sulfate 2.5MG ONCE ONCE IH 10/10/24 20:30 10/10/24 20:31 DC 10/10/24 20:50 Oseltamivir Phosphate 75 mg Q12H PO 10/11/24 10:00 10/16/24 09:59 10/11/24 09:17 Pharmacy Profile Note 1 each ONCE ONCE MISC 10/10/24 20:30 10/10/24 21:03 DC 10/10/24 20:30 Ipratropium [place] 0.5 MG [id number] IH 10/11/24 00:00 11/10/24 00:00 10/11/24 12:10 Piperacillin Sod/ Tazobactam Sod 3.375 gm Q8H IV 10/11/24 04:00 10/21/24 03:59 10/11/24 04:53 Aspirin 162 mg ONCE ONCE PO 10/10/24 20:30 10/10/24 20:37 DC 10/10/24 20:56 Aspirin 81 mg DAILY PO 10/11/24 09:00 11/10/24 08:59 10/11/24 09:17 Heparin Sodium (Porcine) 5,000 unit BID SQ 10/10/24 21:00 11/09/24 20:59 10/11/24 09:18 Pantoprazole Sodium 40 mg DAILY PO 10/11/24 09:00 11/10/24 08:59 10/11/24 09:17 Metoprolol Tartrate 12.5 mg BID PO 10/10/24 21:00 10/11/24 08:27 DC 10/10/24 21:36 Levalbuterol HCl 0.63 mg Q6H NEB 10/10/24 21:30 10/10/24 21:11 DC Albuterol Sulfate 2.5 mg Q6H IH 10/10/24 21:30 11/09/24 21:29 10/11/24 12:10 Furosemide 40 mg Q12H IV 10/11/24 08:30 11/10/24 08:29 10/11/24 09:16 Metoprolol Succinate 100 mg DAILY PO 10/11/24 09:00 11/10/24 08:59 10/11/24 09:16 Active Scripts Levofloxacin (Levofloxacin) 750 Mg Tablet, 750 MG PO DAILY for 5 Days, #5 TAB Prov:HIMANSHU WANG MD 09/03/23 Metoprolol Succinate (Toprol Xl) 50 Mg Tab.er.24h, 100 MG PO BID, #60 TAB 1 Refill Prov:HIMANSHU WANG MD 09/03/23 Levothyroxine Sodium (Synthroid 25 Mcg Tab) 25 Mcg Tablet, 25 MCG PO DAILY@0630, #30 TAB 0 Refills Prov:HIMANSHU WANG MD 09/03/23 Diltiazem HCl (Cardizem Cd 120 mg) 120 Mg Cap.er.24h, 120 MG PO DAILY, #30 CAPSULE.DR 0 Refills Prov:HIMANSHU WANG MD 09/03/23 Apixaban (Eliquis) 2.5 Mg Tablet, 2.5 MG PO BID, #60 TAB 0 Refills Prov:HIMANSHU WANG MD 09/03/23 Reported Medications Atorvastatin Calcium (Atorvastatin Calcium) 20 Mg Tablet, 20 MG PO HS, TAB 08/28/23 ABIGAIL FERNANDEZ MD Oct 11, 2024 13:05
--- NOTE | 2024-10-11 14:42 | HMCSR ---
APPROVED REPORT EXAM: Two-dimensional and M-mode echocardiogram with Doppler and color Doppler. INDICATION ICD: elevated troponin 2D Dimensions RVDd3.0 cmLVEF(%)5.7 (>50%)LVED Vol(simp.)40.0 mL IVSd1.4 (0.7-1.1cm)FS(%)2 %LVES Vol(simp.)19.8 mL LVDd2.6 (3.8-5.6cm)LA (2D)4.3 (1.6-4.0cm)LVEF(%, simp.)50 % PWd1.5 (0.7-1.1cm)Ao Root(2D)2.7 (2.0-3.7cm)LA ESV INDEX (BP)61.13 mL/m2 LVDs2.6 (2.5-4.0cm)LVOT diam1.5 (1.8-2.4cm) IVC diam1.2 cm Deformation Strain Apical 4-12.0 % Apical 2-10.0 % Apical 3-12.0 % Global Strain-11.0 % M-Mode Dimensions EPSS0.9 cm Aortic Valve AoV Vmax1.7 m/Wilfredo Peak GR12.2 mmHgLVOT Vmax1.1 m/s AoV VTI0.3 mAo Mean GR7.0 mmHgLVOT VTI0.21 m CAM (VMAX)1.1 cm2Al P1/2T616 msAVA (VTI) 1.1 cm2 Mitral Valve MV E Vmax87.4 cm/sDECEL Zdlb599 ms MV A Vmax36.5 cm/sP 1/2 T47 ms E/A ratio2.4MVA (PHT)4.7 cm2 TDI E/E' Lgofys93.9E/E' Beiwbas89.6 Medial E' Peak V4.00 cm/sLateral E' Peak V6.00 cm/s Tricuspid Valve TR Vmax3.2 m/sRAP (EST) 3 rwSxDOGP44.9 mmHg TR Peak GR48.9 mmHg Left Ventricle Left ventricular cavity size is normal. GS -11%. Borderline global hypokinesis Moderate-severe LVH LV EF is 50-55%. 3D volume EF 51% Undetermined secondary to atrial dysrhythmia Right Ventricle The right ventricle is normal size. Right ventricular systolic function is mildly reduced. Atria The left atrium is severely dilated. The right atrium is severely dilated. Aortic Valve Aortic valve is trileaflet. Mild aortic regurgitation. There is no aortic valvular stenosis. Mitral Valve Mitral valve leaflets appear normal. Mitral regurgitation is moderate. There is no mitral valve steno sis. Tricuspid Valve The tricuspid valve is normal in structure and function. There is moderate tricuspid valve regurgitat ion noted. RVSP 51mmHg. Pulmonic Valve The pulmonary valve is normal in structure and function. There is trace pulmonic valvular regurgitati on. Great Vessels The aortic root is normal in size. The IVC is normal in size and collapses >50% with inspiration. Pericardium No pericardial effusion. Conclusion Moderate-severe LVH LVEF is 50-55%. 3D volume EF 51% GS -11%. Borderline global hypokinesis The left atrium is severely dilated. The right atrium is severely dilated. Mitral regurgitation is moderate. There is moderate tricuspid valve regurgitation noted. RVSP 51mmHg. The aortic root is normal in size.
--- NOTE | 2024-10-11 17:30 | NUR ---
BEDSIDE SWALLOW EVAL COMPLETED. Patient presents with mild oral dysphagia. Recommend ground solids, thin liquids, and whole meds as tolerated. COMPENSATORY STRATEGIES 1. Sit upright 2. Alt liquids and solids GREENHOUSE SUPERINTENDENT reviewed results and recommendations with patient and nurse. GREENHOUSE SUPERINTENDENT educated patient on risk and consequences of aspiration. Speech therapy warranted at this time to address dysphagia. All questions answered. RECOMMENDATIONS: Dysphagia therapy 1x week to improve oral dysphagia: LTG#1: Pt will tolerate least restrictive diet to meet nutrition/hydration with no s/s of aspiration. LTG#2: Skilled education Pt/family/staff STG#1: Pt will participate in laryngeal elevation/excursion exercises with 90% accuracy. STG#2: Pt will participate in oral motor exercises with 90% accuracy with min asst. STG#3 Pt will tolerate a modified diet of ground solids with no overt s/s of aspiration. STG#4 Pt will participate in therapeutic trials of mechanical soft/chopped solids with no overt s/s of aspiration. STG#5: Skilled education with pt/family/staff Addendum: 10/11/24 at 1927 by TIM VERAS Amended: Links added.
[2024-10-11] MEDS: guaiFENesin SUGAR-FREE 100 MG/5 ML UDCUP PO PRN (20:48)
--- NOTE | 2024-10-11 22:52 | NUR ---
REPORT GIVEN TO DORIS GARAY
--- NOTE | 2024-10-11 23:10 | NUR ---
ADMITTED 83 YEAR OLD FROM ER ADMITTING DIAGNOSIS CONGESTION AND POSITIVE FOR FLU A , PATIENT ALERT,ORIENTED X3 PLACE ,TIME ,PERSON. ABLE TO VOICE HER NEEDS,RA. PLACING TELEMETRY MONITORING RUNNING A-FIB PIV ON RFA 20G FLUSHING WELL. NO WOUND PRESENT.DENIES DISCOMFORT AT THIS TIME . SAFETY MEASURES IN PLACE . CALL LIGHT WITHIN REACH.
[2024-10-11] MEDS: PoTASSium chl 10% ELIXIR 20MEQ 20 MEQ/15 ML UDCUP PO PRN (23:59)
[2024-10-12] VITALS (14 sets, daily range): BP systolic 106–159; BP diastolic 56–98; PULSE 68–135; RESP 15–20; TEMP 96.6–97.8; O2SAT 94–97
[2024-10-12] MEDS: MAGNESIUM 2GM PREMIX 50ML 50 ML IV PRN
[2024-10-12] MEDS: PHARMACY COMMUNICATION MISC ONE (03:21)
[2024-10-12] MEDS: metoPROLOL tartRATE 1 MG/ML 5ML VIAL IV PRN ×2 (03:27→12:13)
--- NOTE | 2024-10-12 06:00 | NUR ---
AFIB WITH RVR PT REPORTED RUNNING WITH AFIB WITH RVR NON SUSTAINED SINCE ADMISSION AT 2330. INITIALLY 157 THEN GOES DOWN TO 90'S THEN 70'S. SWITCH TENDER STARTED CALLING FOR PERSISTENT AFIB WITH RVR MOSTLY FR 120'S TO 140'S AT 0320. CALLED DARLENE CONRAD WHO ORDERED TO GIVE METOPROLOL 5 MG IV EVERY 5 MINUTES X 3 TIMES FOR HEART RATE GREATER THAN 120. STARTED GIVING THE 1ST 5 MG AT 0327 FOR HR OF 137 WITH BP AT 110/78 MMHG. HR CAME DOWN TO 90'S EVENTUALLY IN LESS THAN 30 MINUTES. DAUGHTER KATE GROSS STARTED CALLING AT 0630 SAYING THAT THEIR MOTHER HAD BEEN CALLING BOTH HER AND HER BROTHER SOUNDING AGITATED, TALKING ABOUT HER PROBLEMS WITH LOW BLOOD PRESSURE AND THAT SHE NEEDS A LOT OF HELP. DAUGHTER STATED THAT THEIR MOTHER HAD THE SAME EPISODE THE LAST TIME THAT SHE WAS IN THE HOSPITAL WHICH FURTHER AGGRAVATES THE IRREGULAR HR. SWITCH TENDER CALLED AGAIN WITH THE HR GOING UP TO THE 140'S AT 0640, 2ND DOSE OF METOPROLOL 5 MG GIVEN IV PUSH AT 0641. PT HAD BEEN TALKING TO THE PHONE WITH A FAMILY MEMBER THAT TIME WHEN THE MED WAS GIVEN. PT REORIENTED X 3 AND ENCOURAGED TO CALM DOWN AND RELAX. FUNERAL CAR CHAUFFEUR MADE AWARE THAT PT MIGHT END UP GETTING TRANSFERRED TO PCCU IF THIS AFIB WITH RVR EPISODES CONTINUES. WILL CONTINUE TO MONITOR, REPORT GIVEN TO SONIDO JONES WHO WILL ASSUME CARE OF PATIENT THIS AM. BLOOD PRESSURE REMAINED STABLE AFTER THE MED WAS GIVEN. HR STARTED GOING DOWN BET 80'S TO 90'S .
[2024-10-12 06:18] LABS: BASOPHILS # (AUTO) 0.03 K/uL (0.00-0.20); BASOPHILS % (AUTO) 0.5 % (0.0-5.0); EOSINOPHILS # (AUTO) 0.08 K/uL (0.00-0.70); EOSINOPHILS % (AUTO) 1.2 % (0.0-8.0); IMMATURE GRANULOCYTE ABSOLUTE 0.02 K/uL (0-1); LYMPHOCYTES # (AUTO) 1.8 K/uL (1.0-4.8); LYMPHOCYTES % (AUTO) 28.7 % (21.0-51.0); MEAN CORPUSCULAR HEMOGLOBIN 27.9 pg (27.0-33.0); MEAN CORPUSCULAR HGB CONC 31.9 g/dL (32.0-36.0); MEAN CORPUSCULAR VOLUME 87.6 fL (79-99); MONOCYTES # (AUTO) 0.9 K/uL (0.1-1.0); MONOCYTES % (AUTO) 13.4 % (3.0-13.0); NEUTROPHILS # (AUTO) 3.6 K/uL (1.8-7.7); NEUTROPHILS % (AUTO) 55.9 % (40.0-77.0); PLATELET COUNT (AUTO) 147 K/uL (130-400); RED BLOOD CELL COUNT(AUTO) 4.91 MIL/uL (4.00-5.50); RED CELL DISTRIBUTION WIDTH 14.3 % (11.0-15.5); WHITE BLOOD COUNT (AUTO) 6.4 K/uL (4.8-10.8)
[2024-10-12 06:42] LABS: B-TYPE NATRIURETIC PEPTIDE 468 pg/mL (0-100)
--- NOTE | 2024-10-12 08:49 | PN ---
[facility] PROGRESS NOTE Date of Service: Oct 12, 2024 Time of Service: 08:35 SUBJECTIVE: [ ] This is a 84-year-old female was admitted on 10/10/2024 with chief complaints of generalized weakness in lower extremity in edematous test ER workup patient was found with elevated BNP 2600, influenza a positive last echo was done 2023 we will repeat on this admission we will consult laborer/key man's. Given to patient had a episode of AFib with RVR and elevated troponin. Started patient on Lasix we will monitor patient closely and wait for laborer/key man's input. 10/12/2024 patient is seen and examined patient heart rate between 133-85. Continue with diuretics we will be changed to p.o. restarted home medications however her home medications Eliquis 2.5 mg twice daily, atorvastatin 20 mg nightly, diltiazem ER 120 mg daily were not on her home medications profile review laborer/key man's note in detail we will resume medications. Eleven nurse reports patient continues with AFib heart rate 120s her home medic ations were already given at nine this morning. We will continue with tele monitoring. REVIEW OF SYSTEMS CONSTITUTIONAL: Denies fevers, chills, or night sweats. No unintentional weight loss reported. NEUROLOGICAL: Denies headache, amaurosis fugax, motor weakness, sensory deficit, vertigo/spinning sensation, gait abnormalities, or tremors. ENT: No hearing loss, otalgia, otorrhea, rhinitis, rhinorrhea, hoarseness, or sore throat. CARDIOVASCULAR: Denies any exertional angina, dyspnea on exertion, orthopnea, paroxysmal nocturnal dyspnea, palpitations, life-threatening arrhythmias, claudication. PULMONARY: Denies any shortness of breath, cough, phlegm/sputum, hemoptysis, pleuritic chest pain. SLEEP: Denies morning headaches, daytime somnolence or napping. Denies difficulty falling asleep, staying asleep, waking from sleep. Denies knowledge of snoring. GASTROINTESTINAL: Denies any type of dysphagia to either liquids or solids. Denies nausea, vomiting, pyrosis, early satiety, abdominal pain, diarrhea, constipation, or changes in stool consistency or caliber. Denies coffee-ground emesis, hematemesis, hematochezia, or melanotic stools. GENITOURINARY: Denies frequency, urgency, nocturia, hematuria or incontinence (Storage/Irritative symptoms.) Low urinary stream, straining to void, urinary i ntermittency or hesitancy, splitting of the voiding stream, terminal dribbling. ENDOCRINOLOGIC: Denies polyuria, polydipsia, polyphagia or heat/cold intolerances. HEMATOLOGIC: Denies thrombophilia/previous clots, or coagulopathy/bleeding disorders. ONCOLOGIC: Denies personal history of malignancy. DERMATOLOGIC: Denies rashes or pruritus. PSYCHIATRIC: Denies any suicidal or homicidal ideation. Denies hallucinations. PHYSICAL EXAM GENERAL APPEARANCE: The patient is awake, alert, and oriented, in no acute cardiopulmonary distress. NEUROLOGICAL: Cranial nerves II-XII grossly intact. Motor is 5/5 in bilateral upper and lower extremities proximal to distal. No sensory deficits. HEENT: Face is symmetric. Pupils are equal and reactive. Extraocular movements are intact. NECK: Supple. No JVD. No thyromegaly. No submental, submandibular, pre- /postauricular, occipital or supraclavicular lymphadenopathy. CHEST: Normal chest expansion. No Telemetry. LUNGS: Absence of any rales, rhonchi or any wheezing. CARDIOVASCULAR: Regular. S1 and S2 normal. No appreciable rubs, murmurs or gallops. ABDOMEN: Soft, nontender, and nondistended. There is no rebound, voluntary guarding, or rigidity. : Deferred. No [place]. EXTREMITIES: Non-edematous and not cyanotic. No clubbing. Good capillary refill. SKIN: No skin breakdown. Vital Signs (last 8hr) Date Time Temp Pulse Resp B/P (MAP) Pulse Ox O2 Delivery O2 Flow Rate FiO2 10/12/24 07:07 108 19 N/A Room Air 21 10/12/24 07:07 108 18 10/12/24 06:41 133 119/82 10/12/24 04:00 97.7 68 20 123/69 98 Room Air 10/12/24 03:38 79 123/69 10/12/24 03:27 135 110/78 10/12/24 03:27 133 108/78 LABS: Laboratory: Test 10/12/24 05:52 10/12/24 00:45 10/11/24 13:05 10/11/24 06:57 Range/Units White Blood Count 6.4 4.8-10.8 K/uL Red Blood Count 4.91 4.00-5.50 MIL/uL Hemoglobin 13.7 12.0-16.0 g/dL Hematocrit 43.0 36-48 % Mean Corpuscular Volume 87.6 79-99 fL Mean Corpuscular Hemoglobin 27.9 27.0-33.0 pg Mean Corpuscular Hemoglobin Concent 31.9 L 32.0-36.0 g/dL Red Cell Distribution Width 14.3 11.0-15.5 % Platelet Count 147 130-400 K/uL Mean Platelet Volume 11.1 H 7.5-10.5 fL Immature Granulocyte % (Auto) 0.3 0-1 % Neutrophils (%) (Auto) 55.9 40.0-77.0 % Lymphocytes (%) (Auto) 28.7 21.0-51.0 % Monocytes (%) (Auto) 13.4 H 3.0-13.0 % Eosinophils (%) (Auto) 1.2 0.0-8.0 % Basophils (%) (Auto) 0.5 0.0-5.0 % Neutrophils # (Auto) 3.6 1.8-7.7 K/uL Lymphocytes # (Auto) 1.8 1.0-4.8 K/uL Monocytes # (Auto) 0.9 0.1-1.0 K/uL Eosinophils # (Auto) 0.08 0.00-0.70 K/uL Basophils # (Auto) 0.03 0.00-0.20 K/uL Absolute Immature Granulocyte (auto 0.02 0-1 K/uL Nucleated Red Blood Cells 0.0 0.0-0.19 % Magnesium Level 2.90 H 1.80-2.40 mg/dL B-Type Natriuretic Peptide 468 H 0-100 pg/mL Potassium Level 4.0 3.5-5.1 mmol/L Troponin I High Sensitivity 98 *H 4-50 ng/L White Cell Morphology Comment See comments Sodium Level 139 136-145 mmol/L Chloride Level 102 101-111 mmol/L Carbon Dioxide Level 29 21-32 mmol/L Blood Urea Nitrogen 14 7-18 mg/dL Creatinine 1.0 0.5-1.0 mg/dL Glomerular Filtration Rate Calc 55 >90 mL/min Random Glucose 107 H 70-105 mg/dL Total Calcium 8.3 L 8.5-10.1 mg/dL Phosphorus Level 3.7 2.5-4.9 mg/dL Total Bilirubin 0.8 0.2-1.0 mg/dL Direct Bilirubin 0.2 0.0-0.3 mg/dL Aspartate Amino Transf (AST/SGOT) 18 10-37 U/L Alanine Aminotransferase (ALT/SGPT) 14 12-78 U/L Alkaline Phosphatase 64 50-136 U/L Total Protein 6.5 6.0-8.3 g/dL Albumin 3.2 L 3.5-5.0 g/dL Triglycerides Level 93 30-200 mg/dL Cholesterol Level 162 <200 mg/dL LDL Cholesterol 97 0-99 mg/dL HDL Cholesterol 55 35-85 mg/dL Thyroid Stimulating Hormone (TSH) 1.30 # 0.36-3.74 uIU/mL Test 10/11/24 05:55 10/10/24 20:06 10/10/24 19:08 10/10/24 18:53 Range/Units Urine Color YELLOW YELLOW Urine Appearance CLEAR CLEAR Urine pH 5.5 5.0-8.0 Urine Specific [place] 1.020 1.001-1.031 Urine Protein 30 H NEGATIVE mg/dL Urine Glucose (UA) NEGATIVE NEGATIVE mg/dL Urine Ketones NEGATIVE NEGATIVE mg/dL Urine Occult Blood SMALL H NEGATIVE Urine Nitrate NEGATIVE NEGATIVE Urine Bilirubin NEGATIVE NEGATIVE mg/dL Urine Urobilinogen 0.2 0.2-1.0 mg/dL Urine Leukocyte Esterase NEGATIVE NEGATIVE Steven/uL Urine RBC 11-25 H 0-1 /HPF Urine WBC 2-5 H 0-1 /HPF Urine Squamous Epithelial Cells RARE 0-2 /HPF Urine Bacteria None None Seen /HPF Urine Random Creatinine 124.48 30-135 mg/dL Urine Random Sodium 48 40-220 mmol/l Lactic Acid Level 2.0 0.8-2.5 mmol/L Influenza Type A Antigen Positive For Type A *A NEGATIVE Influenza Type B Antigen Negative For Type B NEGATIVE Procalcitonin < 0.05 L 0.05-0.5 ng/mL Test 10/10/24 18:26 Range/Units SARS-CoV-2 Antigen (Rapid) PRESUMPTIVE NEGATIVE NEGATIVE Current Medications Medications (Trade) Dose Ordered Sig/Artie Route PRN Reason Start Time Stop Time Status Last Admin Dose Admin Acetaminophen (TYLenol 325MG TAB) 650 mg Q6H PRN PO TEMPERATURE GREATER THAN 101.5 10/10/24 20:30 11/09/24 20:29 10/11/24 17:51 650 MG Albuterol Sulfate (Proventil 0.083% 2.5mg/3ml) 2.5 mg Q6H IH 10/10/24 21:30 11/09/24 21:29 10/11/24 18:45 2.5 MG Aspirin (Aspirin 81mg Ec Tab) 81 mg DAILY PO 10/11/24 09:00 11/10/24 08:59 10/11/24 09:17 81 MG Azithromycin 250 ml @ 250 mls/hr ONCE STAT IVPB 10/10/24 19:35 10/10/24 20:34 DC 10/10/24 20:35 250 MLS/HR Furosemide (LASix 40MG VIAL) 40 mg Q12H IV 10/11/24 08:30 11/10/24 08:29 10/11/24 20:48 40 MG Guaifenesin (RobiTUSSin SUGAR-FREE 100 MG/ 5 ML UDCUP) 400 mg Q4H PRN PO cough 10/10/24 20:30 11/09/24 20:29 10/11/24 20:48 400 MG Heparin Sodium (Porcine) (HEParin 5,000 UNIT VIAL) 5,000 unit BID SQ 10/10/24 21:00 11/09/24 20:59 10/11/24 20:47 5,000 UNIT Hydralazine HCl (APRESOLine 20MG INJ) 10 mg Q6H PRN IV For:SBP above 160;DBP above 90 10/10/24 20:30 11/09/24 20:29 Ipratropium [place] (AtrovENT UD) 0.5 MG [id number] IH 10/11/24 00:00 11/10/24 00:00 10/12/24 07:06 0.5 MG Levalbuterol HCl (Xopenex Neb Soln) 0.63 mg Q6H NEB 10/10/24 21:30 10/10/24 21:11 DC Magnesium Sulfate 50 ml @ 0 mls/hr PROTOCOL PRN IV low mag level 10/11/24 08:30 11/10/24 08:29 10/12/24 00:00 25 MLS/HR Metoprolol Succinate (TopROL XL) 100 mg DAILY PO 10/11/24 09:00 11/10/24 08:59 10/11/24 09:16 100 MG Metoprolol Tartrate (loprESSOR) 5 mg Q5MIN PRN IV AFIB RVR > 120 BPM 10/12/24 03:30 10/13/24 03:29 10/12/24 06:41 5 MG Metoprolol Tartrate (loprESSOR) 12.5 mg BID PO 10/10/24 21:00 10/11/24 08:27 DC 10/10/24 21:36 12.5 MG Nitroglycerin (Nitrostat) 0.4 mg PROTOCOL PRN SL CHEST PAIN 10/10/24 20:30 11/09/24 20:29 Ondansetron HCl (zoFRAN 4MG INJ) 4 mg Q6H PRN IV NAUSEA/VOMITING 10/10/24 20:30 11/09/24 20:29 Oseltamivir Phosphate (Tamiflu) 75 mg Q12H PO 10/11/24 10:00 10/16/24 09:59 10/11/24 20:47 75 MG Pantoprazole Sodium (PROTonix 40MG TAB) 40 mg DAILY PO 10/11/24 09:00 11/10/24 08:59 10/11/24 09:17 40 MG Piperacillin Sod/ Tazobactam Sod (Zosyn 3.375gm+NS 50ml) 3.375 gm Q8H IV 10/11/24 04:00 10/21/24 03:59 10/12/24 03:33 3.375 GM Potassium Chloride 100 ml @ 100 mls/hr AD PRN IV POTASSIUM PROTOCOL 10/11/24 08:30 11/10/24 08:29 Potassium Chloride (K-Dur/Klor-Con 20meq) 20 meq AD PRN PO POTASSIUM PROTOCOL 10/11/24 08:30 11/10/24 08:29 Potassium Chloride (KCl 10% Elixir 20meq/15ml) 20 meq AD PRN PO POTASSIUM PROTOCOL 10/11/24 08:30 11/10/24 08:29 10/12/24 01:16 20 MEQ DIAGNOSTICS / RADIOLOGY: [ ] ASSESSMENT: Metabolic encephalopathy secondary to infection POA Sepsis,secondary to viral syndrome and PNA POA Influenza A positive, POA Acute diastolic congestive heart failure present on admission BISHNU versus CKD, POA Elevated troponin, POA elevated BNP, POA AFib with RVR exacerbation, POA hypercoagulable state secondary to A fibb on Anticoagulate therapy Eliquis Right lower lobe pneumonia, POA suspecting aspiration pna. mild oral dysphagia POA Hypertension Hypothyroidism Hyperlipidemia] Noncompliance with treatment PLAN: [ ] Admit: PCCU condition: Guarded Status: Full code IVF: Hep-Lock fluids contraindicated Diet: Heart healthy Consultants laborer/key man's Diuretics Lasix 40 mg IV b.i.d., metoprolol succinate ER 100 mg one of her home meds, and aspirin we will continue with Eliquis 2.5 po bid and diltiazem 120 mg po daily Oxygen supplement to keep O2 sats above 92% as needed. Aspiration precautions head of the bed at 45 at all times. Mild oral dysphagia ground solids thin liquids. Antibiotics:Tamiflu 75 mg po bid , Zosyn IV every8 hours 3.375 g Continue bronchodilators Test: 2D echo noted Labs cbc, cmp, mag+ Replace electrolytes as needed as per protocol to keep potassium above 4.0 magnesium 2.0. Home medication reviewed and started PT services " fall precaution : call light in reach Supportive measures: DVT ppx, GI ppx all questions answered Supervising MD: Dr.Robert Shari KIRK c/d This document was generated in part using voice recognition software, occasional wrong word or sound alike substitutions may have occurred due to the inherent limitations of voice recognition software. Read the chart carefully and recognize using context, where the substitutions have occurred. Although every effort was made to edit the content, pattern room attendant and typing errors may occur ATTESTATION BY PHYSICIAN I have seen and examined the patient. I reviewed the documentation, medical decision making, and treatment plan as noted by the mid-level provider above. I agree with the findings and plan of care. Lynn Calabrese MD, ELIZABETH NP Oct 12, 2024 08:49 LYNN CALABRESE MD Oct 13, 2024 16:46
[2024-10-12] MEDS: dilTIAZem 120MG SR CAP PO SCH (09:12)
[2024-10-12] MEDS: APIXaban 2.5 MG TABLET PO SCH (09:13)
[2024-10-12 09:47] LABS: CREATININE 1.2 mg/dL (0.5-1.0); POTASSIUM 3.6 mmol/L (3.5-5.1)
--- NOTE | 2024-10-12 17:09 | PN ---
Cardiology Progress Note Date of Service: 10/12/2024 Attending Human Resource Internship: Dr. Mounika Fernando Primary Human Resource Internship: Dr. Bandar Sandoval Reason for Consult: Paroxysmal atrial fibrillation with RVR Problem List: -Altered mental status, improved -Acute respiratory distress -Influenza a positive -Acute HFpEF (LVEF: 50-55% by echo done 10/11/2024) -Paroxysmal atrial fibrillation/flutter with a RVR -Elevated troponin (type 2 WV) -NSVT -Nonobstructive CAD (20-30% stenosis of the LAD) by [facility]/coronary angiogram done 03/06/2018 -HTN -HLP -Hypothyroidism -Octogenarian Subjective: This is an 84-year-old female who is seen and evaluated at the bedside today. Patient denies any active complaints including chest pain, chest pressure, palpitations, or shortness of breath. Of note, that the patient has had frequent episodes of atrial fibrillation/flutter with RVR over the past 12 hours, as well as an episode of NSVT earlier this morning. Vitals/Labs Vital Signs Date Time Temp Pulse Resp B/P (MAP) Pulse Ox O2 Delivery O2 Flow Rate FiO2 10/12/24 12:13 160 135/57 10/12/24 12:00 96.6 15 95 Room Air 21 10/12/24 08:00 0 General: Awake and alert. No acute distress. HEENT: Normocephalic, atraumatic, EOMI, oral mucosa was moist. Neck: No masses, JVD, or carotid bruits noted. Lungs: No respiratory distress. SCM. Bilateral air entry. Clear to auscultation bilaterally. No rales, wheezing, or rhonchi noted. Cardio: Regular rate, irregular rhythm. Abdomen: Soft, nontender, nondistended, no organomegaly. Normal active bowel sounds x4 quadrants. Extremities: No edema, clubbing, or cyanosis noted. +2 pulses noted throughout. Neuro: Cranial nerves II through XII are grossly intact. No obvious focal deficit identified. Laboratory Tests 10/12/24 00:45 10/12/24 05:52 Assessment: -Altered mental status, improved -Acute respiratory distress -Influenza a positive -Acute HFpEF (LVEF: 50-55% by echo done 10/11/2024) -Paroxysmal atrial fibrillation/flutter with a RVR -Elevated troponin (type 2 WV) -NSVT -Nonobstructive CAD (20-30% stenosis of the LAD) by [facility]/coronary angiogram done 03/06/2018 -HTN -HLP -Hypothyroidism -Octogenarian Plan: 1. Acute HFpEF (LVEF: 50-55% by echo done 10/11/2024) -Improved -BNP: 468, previously: 989, admission: 2600 -We will transition the patient from IV to oral furosemide 40 mg BID. In addition, she will continue on metoprolol succinate 100 mg BID. -Please record strict I's and O's, daily weights, and restrict fluids to less than 2.0 L per day 2. Paroxysmal atrial fibrillation/flutter with a RVR -Substrate: Severe BAD -Inciting factor: Multiple, including acute respiratory distress, influenza A, and electrolyte abnormalities -12H telemetry: Atrial fibrillation/flutter with episodes of RVR, HR range: 90- 160 bpm with an episode of NSVT (12 beats) at 10:16 AM -Currently stable, asymptomatic, and an atrial fibrillation with a controlled ventricular response Of note, is that the patient takes metoprolol succinate 100 mg BID at home, but on the inpatient service has only been receiving the medication daily. As result, we will increase metoprolol succinate to 100 mg BID and discontinue diltiazem. -If the patient's HR remains poorly controlled despite the increase in metoprolol succinate then we will likely initiate a digoxin load. -CHADS2 VASc score: 6 points. Continue Eliquis 2.5 mg BID (adjusted due to patient's age and weight) -Please keep the patient on continuous telemetry monitoring and maintain a potassium greater than 4.0 and magnesium greater than 2.0 3. Elevated troponin (type 2 WV) -HS troponin I peak: 103 -The elevated troponin is thought to be a type 2 WV (demand ischemia) induced by the respiratory distress, influenza A, atrial fibrillation with RVR, and acute on chronic HFrEF, and not secondary to ACS. -As a result, we do not recommend any further cardiac workup/testing/imaging, and instead we recommend treating the inciting factors. -In the meantime, the patient will continue on metoprolol succinate 100 mg BID and atorvastatin 20 mg QHS. MOUNIKA FERNANDO MD Oct 12, 2024 17:09
[2024-10-12] MEDS: furoSEMIDE 40 MG TABLET PO SCH (17:18)
[2024-10-12] MEDS: atorVAStatin 20 MG TABLET PO SCH (21:15)
[2024-10-12] MEDS: metOPROLol sucCINATE 50 MG TAB.SR.24H PO SCH (21:15)
[2024-10-13] VITALS (14 sets, daily range): BP systolic 103–145; BP diastolic 58–73; PULSE 74–136; RESP 16–18; TEMP 97.8–98.6; O2SAT 96–99
[2024-10-13] MEDS: levoTHYROxine 50 MCG TABLET PO SCH (06:10)
--- NOTE | 2024-10-13 06:56 | NUR ---
PATIENT UPDATE PT SLEPT WELL OVERNIGHT, PLEASANTLY CONFUSED. AFIB MORE CONTROLLED OVERNIGHT AFTER THE NEW REGIMEN WAS STARTED. HR GOES UP TO THE 140'S TO 150'S WHEN SHE STARTS AMBULATING TO THE RESTROOM THEN GOES BACK DOWN TO THE 70'S. COVERED WITH 20MEQ KCL ELIXIR FOR POTASSIUM LEVEL OF 3.6. NO SUNDOWNING OVERNIGHT, NO AGITATION AND NO CALLING OF ALL FAMILY MEMBERS LIKE SHE DID THE NIGHT PRIOR. ON BED ALARM, AWARE THAT SHE NEEDS TO BE HELPED GETTING UP TO THE RESTROOM. NO COMPLAINTS OF PAIN, NO SHORTNESS OF BREATH, NORMOTENSIVE.
--- NOTE | 2024-10-13 09:49 | PN ---
[facility] PROGRESS NOTE Date of Service: Oct 13, 2024 Time of Service: 09:47 SUBJECTIVE: [ ] This is a 84-year-old female was admitted on 10/10/2024 with chief complaints of generalized weakness in lower extremity in edematous test ER workup patient was found with elevated BNP 2600, influenza a positive last echo was done 2023 we will repeat on this admission we will consult flight attendant/inflight supervisor's. Given to patient had a episode of AFib with RVR and elevated troponin. Started patient on Lasix we will monitor patient closely and wait for flight attendant/inflight supervisor's input. 10/12/2024 patient is seen and examined patient heart rate between 133-85. Continue with diuretics we will be changed to p.o. restarted home medications however her home medications Eliquis 2.5 mg twice daily, atorvastatin 20 mg nightly, diltiazem ER 120 mg daily were not on her home medications profile review flight attendant/inflight supervisor's note in detail we will resume medications. Eleven nurse reports patient continues with AFib heart rate 120s her home medic ations were already given at nine this morning. We will continue with tele monitoring. 10/13/2024 patient is seen patient appears to be doing much better heart rate is well controlled now. However with minimal exertion patient's heart rate increased to 140s asymptomatic.. We will wait for flight attendant/inflight supervisor's for further adjustments if needed. Patient on room air no distress. Denied chest pain palpitations. REVIEW OF SYSTEMS CONSTITUTIONAL: Denies fevers, chills, or night sweats. No unintentional weight loss reported. NEUROLOGICAL: Denies headache, amaurosis fugax, motor weakness, sensory deficit, vertigo/spinning sensation, gait abnormalities, or tremors. ENT: No hearing loss, otalgia, otorrhea, rhinitis, rhinorrhea, hoarseness, or sore throat. CARDIOVASCULAR: Denies any exertional angina, dyspnea on exertion, orthopnea, paroxysmal nocturnal dyspnea, palpitations, life-threatening arrhythmias, claudication. PULMONARY: Denies any shortness of breath, cough, phlegm/sputum, hemoptysis, pl euritic chest pain. SLEEP: Denies morning headaches, daytime somnolence or napping. Denies difficulty falling asleep, staying asleep, waking from sleep. Denies knowledge of snoring. GASTROINTESTINAL: Denies any type of dysphagia to either liquids or solids. Denies nausea, vomiting, pyrosis, early satiety, abdominal pain, diarrhea, constipation, or changes in stool consistency or caliber. Denies coffee-ground emesis, hematemesis, hematochezia, or melanotic stools. GENITOURINARY: Denies frequency, urgency, nocturia, hematuria or incontinence (Storage/Irritative symptoms.) Low urinary stream, straining to void, urinary intermittency or hesitancy, splitting of the voiding stream, terminal dribbling. ENDOCRINOLOGIC: Denies polyuria, polydipsia, polyphagia or heat/cold intolera nces. HEMATOLOGIC: Denies thrombophilia/previous clots, or coagulopathy/bleeding disorders. ONCOLOGIC: Denies personal history of malignancy. DERMATOLOGIC: Denies rashes or pruritus. PSYCHIATRIC: Denies any suicidal or homicidal ideation. Denies hallucinations. PHYSICAL EXAM GENERAL APPEARANCE: The patient is awake, alert, and oriented, in no acute cardiopulmonary distress. NEUROLOGICAL: Cranial nerves II-XII grossly intact. Motor is 5/5 in bilateral upper and lower extremities proximal to distal. No sensory deficits. HEENT: Face is symmetric. Pupils are equal and reactive. Extraocular movements are intact. NECK: Supple. No JVD. No thyromegaly. No submental, submandibular, pre- /postauricular, occipital or supraclavicular lymphadenopathy. CHEST: Normal chest expansion. No Telemetry. LUNGS: Absence of any rales, rhonchi or any wheezing. CARDIOVASCULAR: Regular. S1 and S2 normal. No appreciable rubs, murmurs or gallops. ABDOMEN: Soft, nontender, and nondistended. There is no rebound, voluntary guarding, or rigidity. : Deferred. No [place]. EXTREMITIES: Non-edematous and not cyanotic. No clubbing. Good capillary refill. SKIN: No skin breakdown. Vital Signs (last 8hr) Date Time Temp Pulse Resp B/P (MAP) Pulse Ox O2 Delivery O2 Flow Rate FiO2 10/13/24 08:00 98.1 84 16 103/69 96 Room Air 21 10/13/24 07:05 86 18 10/13/24 07:04 86 18 N/A Room Air 21 10/13/24 04:03 98.1 78 18 145/58 88 Room Air 21 LABS: Laboratory: Test 10/12/24 05:52 10/11/24 13:05 Range/Units White Blood Count 6.4 4.8-10.8 K/uL Red Blood Count 4.91 4.00-5.50 MIL/uL Hemoglobin 13.7 12.0-16.0 g/dL Hematocrit 43.0 36-48 % Mean Corpuscular Volume 87.6 79-99 fL Mean Corpuscular Hemoglobin 27.9 27.0-33.0 pg Mean Corpuscular Hemoglobin Concent 31.9 L 32.0-36.0 g/dL Red Cell Distribution Width 14.3 11.0-15.5 % Platelet Count 147 130-400 K/uL Mean Platelet Volume 11.1 H 7.5-10.5 fL Immature Granulocyte % (Auto) 0.3 0-1 % Neutrophils (%) (Auto) 55.9 40.0-77.0 % Lymphocytes (%) (Auto) 28.7 21.0-51.0 % Monocytes (%) (Auto) 13.4 H 3.0-13.0 % Eosinophils (%) (Auto) 1.2 0.0-8.0 % Basophils (%) (Auto) 0.5 0.0-5.0 % Neutrophils # (Auto) 3.6 1.8-7.7 K/uL Lymphocytes # (Auto) 1.8 1.0-4.8 K/uL Monocytes # (Auto) 0.9 0.1-1.0 K/uL Eosinophils # (Auto) 0.08 0.00-0.70 K/uL Basophils # (Auto) 0.03 0.00-0.20 K/uL Absolute Immature Granulocyte (auto 0.02 0-1 K/uL Nucleated Red Blood Cells 0.0 0.0-0.19 % Sodium Level 141 136-145 mmol/L Potassium Level 3.6 3.5-5.1 mmol/L Chloride Level 103 101-111 mmol/L Carbon Dioxide Level 29 21-32 mmol/L Blood Urea Nitrogen 22 H 7-18 mg/dL Creatinine 1.2 H 0.5-1.0 mg/dL Glomerular Filtration Rate Calc 44 >90 mL/min Random Glucose 96 70-105 mg/dL Total Calcium 8.7 8.5-10.1 mg/dL Magnesium Level 2.90 H 1.80-2.40 mg/dL B-Type Natriuretic Peptide 468 H 0-100 pg/mL Troponin I High Sensitivity 98 *H 4-50 ng/L Current Medications Medications (Trade) Dose Ordered Sig/Artie Route PRN Reason Start Time Stop Time Status Last Admin Dose Admin Acetaminophen (TYLenol 325MG TAB) 650 mg Q6H PRN PO TEMPERATURE GREATER THAN 101.5 10/10/24 20:30 11/09/24 20:29 10/11/24 17:51 650 MG Albuterol Sulfate (Proventil 0.083% 2.5mg/3ml) 2.5 mg Q6H IH 10/10/24 21:30 11/09/24 21:29 10/11/24 18:45 2.5 MG Apixaban (EliquIS 2.5 mg) 2.5 mg BID PO 10/12/24 09:00 11/11/24 08:59 10/13/24 08:55 2.5 MG Aspirin (Aspirin 81mg Ec Tab) 81 mg DAILY PO 10/11/24 09:00 11/10/24 08:59 10/13/24 08:55 81 MG Atorvastatin Calcium (LIPItor 20MG) 20 mg HS PO 10/12/24 21:00 11/11/24 20:59 10/12/24 21:15 20 MG Azithromycin 250 ml @ 250 mls/hr ONCE STAT IVPB 10/10/24 19:35 10/10/24 20:34 DC 10/10/24 20:35 250 MLS/HR Diltiazem HCl (CARDIzem 120MG CD) 120 mg DAILY PO 10/12/24 09:00 10/12/24 16:05 DC 10/12/24 09:12 120 MG Furosemide (LASix 40MG TAB) 40 mg BID@09,17 PO 10/12/24 17:00 11/11/24 16:59 10/13/24 08:55 40 MG Furosemide (LASix 40MG VIAL) 40 mg Q12H IV 10/11/24 08:30 10/12/24 09:27 DC 10/12/24 08:32 40 MG Guaifenesin (RobiTUSSin SUGAR-FREE 100 MG/ 5 ML UDCUP) 400 mg Q4H PRN PO cough 10/10/24 20:30 11/09/24 20:29 10/11/24 20:48 400 MG Heparin Sodium (Porcine) (HEParin 5,000 UNIT VIAL) 5,000 unit BID SQ 10/10/24 21:00 10/12/24 08:48 DC 10/12/24 08:42 5,000 UNIT Hydralazine HCl (APRESOLine 20MG INJ) 10 mg Q6H PRN IV For:SBP above 160;DBP above 90 10/10/24 20:30 11/09/24 20:29 Ipratropium Elliott (AtrovENT UD) 0.5 MG [id number] IH 10/11/24 00:00 11/10/24 00:00 10/13/24 07:04 0.5 MG Levalbuterol HCl (Xopenex Neb Soln) 0.63 mg Q6H NEB 10/10/24 21:30 10/10/24 21:11 DC Levothyroxine Sodium (SYNTHroid 50MCG TAB) 50 mcg SYN PO 10/13/24 06:30 11/12/24 06:29 10/13/24 06:10 50 MCG Magnesium Sulfate 50 ml @ 0 mls/hr PROTOCOL PRN IV low mag level 10/11/24 08:30 11/10/24 08:29 10/12/24 00:00 25 MLS/HR Metoprolol Succinate (TopROL XL) 100 mg BID PO 10/12/24 21:00 11/11/24 20:59 10/13/24 08:55 100 MG Metoprolol Succinate (TopROL XL) 100 mg DAILY PO 10/11/24 09:00 10/12/24 16:05 DC 10/12/24 08:34 100 MG Metoprolol Tartrate (loprESSOR) 2.5 mg Q4H PRN IV INCREASED HEART RATE 10/12/24 12:00 11/11/24 11:59 10/12/24 12:13 2.5 MG Metoprolol Tartrate (loprESSOR) 5 mg Q5MIN PRN IV AFIB RVR > 120 BPM 10/12/24 03:30 10/12/24 15:21 DC 10/12/24 06:41 5 MG Metoprolol Tartrate (loprESSOR) 12.5 mg BID PO 10/10/24 21:00 10/11/24 08:27 DC 10/10/24 21:36 12.5 MG Nitroglycerin (Nitrostat) 0.4 mg PROTOCOL PRN SL CHEST PAIN 10/10/24 20:30 11/09/24 20:29 Ondansetron HCl (zoFRAN 4MG INJ) 4 mg Q6H PRN IV NAUSEA/VOMITING 10/10/24 20:30 11/09/24 20:29 Oseltamivir Phosphate (Tamiflu) 75 mg Q12H PO 10/11/24 10:00 10/16/24 09:59 10/13/24 08:55 75 MG Pantoprazole Sodium (PROTonix 40MG TAB) 40 mg DAILY PO 10/11/24 09:00 11/10/24 08:59 10/13/24 08:55 40 MG Piperacillin Sod/ Tazobactam Sod (Zosyn 3.375gm+NS 50ml) 3.375 gm Q8H IV 10/11/24 04:00 10/21/24 03:59 10/13/24 05:13 3.375 GM Potassium Chloride 100 ml @ 100 mls/hr AD PRN IV POTASSIUM PROTOCOL 10/11/24 08:30 11/10/24 08:29 Potassium Chloride (K-Dur/Klor-Con 20meq) 20 meq AD PRN PO POTASSIUM PROTOCOL 10/11/24 08:30 11/10/24 08:29 Potassium Chloride (KCl 10% Elixir 20meq/15ml) 20 meq AD PRN PO POTASSIUM PROTOCOL 10/11/24 08:30 11/10/24 08:29 10/12/24 23:05 20 MEQ DIAGNOSTICS / RADIOLOGY: [ ] ASSESSMENT: Metabolic encephalopathy secondary to infection POA improving Sepsis,secondary to viral syndrome and PNA POA Influenza A positive, POA Acute diastolic congestive heart failure present on admission BISHNU versus CKD, POA Elevated troponin, POA elevated BNP, POA AFib with RVR exacerbation, POA hypercoagulable state secondary to A fibb on Anticoagulate therapy Eliquis Right lower lobe pneumonia, POA suspecting aspiration pna. mild oral dysphagia POA Hypertension Hypothyroidism Hyperlipidemia] Noncompliance with treatment PLAN: [ ] Admit: PCCU condition: Guarded Status: Full code IVF: Hep-Lock fluids contraindicated Diet: Heart healthy Consultants flight attendant/inflight supervisor's Diuretics Lasix 40 mg po b.i.d., metoprolol succinate ER 100 mg b.i.d. and aspirin we will continue with Eliquis 2.5 po bid Oxygen supplement to keep O2 sats above 92% as needed. Aspiration precautions head of the bed at 45 at all times. Mild oral dysphagia ground solids thin liquids. Antibiotics:Tamiflu 75 mg po bid , Zosyn IV every8 hours 3.375 g Blood cultures negative 48 hours Continue bronchodilators as needed Labs cbc, cmp, mag+ Replace electrolytes as needed as per protocol to keep potassium above 4.0 magnesium 2.0. PT services " fall precaution : call light in reach Supportive measures: DVT ppx, GI ppx all questions answered Supervising MD: Dr.Robert Shari KIRK c/d This document was generated in part using voice recognition software, occasional wrong word or sound alike substitutions may have occurred due to the inherent limitations of voice recognition software. Read the chart carefully and recognize using context, where the substitutions have occurred. Although every effort was made to edit the content, special events manager and typing errors may occur ATTESTATION BY PHYSICIAN I have seen and examined the patient. I reviewed the documentation, medical decision making, and treatment plan as noted by the mid-level provider above. I agree with the findings and plan of care. Lynn Calabrese MD, ELIZABETH NP Oct 13, 2024 09:49 LYNN CALABRESE MD Oct 13, 2024 16:47
[2024-10-13 10:04] LABS: HEMATOCRIT 41.5 % (36-48); MEAN CORPUSCULAR HEMOGLOBIN 27.3 pg (27.0-33.0); MEAN CORPUSCULAR HGB CONC 31.6 g/dL (32.0-36.0); MEAN CORPUSCULAR VOLUME 86.5 fL (79-99); RED BLOOD CELL COUNT(AUTO) 4.8 MIL/uL (4.00-5.50); RED CELL DISTRIBUTION WIDTH 14.1 % (11.0-15.5); WHITE BLOOD COUNT (AUTO) 6.5 K/uL (4.8-10.8)
[2024-10-13 10:19] LABS: CREATININE 1.2 mg/dL (0.5-1.0); POTASSIUM 3.9 mmol/L (3.5-5.1)
[2024-10-13 10:26] LABS: ALBUMIN 3.4 g/dL (3.5-5.0); BILIRUBIN,TOTAL 0.7 mg/dL (0.2-1.0); MAGNESIUM 2.2 mg/dL (1.80-2.40); TOTAL PROTEIN, SERUM 6.9 g/dL (6.0-8.3)
[2024-10-13] MEDS: DIGOxin 250 MCG/ML 2ML AMP IV ONE (12:55)
--- NOTE | 2024-10-13 16:10 | PN ---
Cardiology Progress Note Date of Service: 10/13/2024 Attending Undergraduate Advisor: Dr. Mounika Fernando Primary Undergraduate Advisor: Dr. Bandar Sandoval Reason for Consult: Paroxysmal atrial fibrillation with RVR Problem List: -Altered mental status, improved -Acute respiratory distress -Influenza a positive -Acute HFpEF (LVEF: 50-55% by echo done 10/11/2024) -Paroxysmal atrial fibrillation/flutter with a RVR -Elevated troponin (type 2 FL) -NSVT -Nonobstructive CAD (20-30% stenosis of the LAD) by [facility]/coronary angiogram done 03/06/2018 -HTN -HLP -Hypothyroidism -Octogenarian Subjective: This is an 84-year-old female who is seen and evaluated at the bedside today. The patient denies any active complaints including chest pain, chest pressure, palpitations, or shortness of breath. Of note, is that the patient continues to maintain atrial fibrillation with RVR despite the increase in BB therapy. Vitals/Labs Vital Signs Date Time Temp Pulse Resp B/P (MAP) Pulse Ox O2 Delivery O2 Flow Rate FiO2 10/13/24 13:55 86 10/13/24 12:00 98.1 16 119/73 98 Room Air 21 10/13/24 08:55 0 General: Awake and alert. No acute distress. HEENT: Normocephalic, atraumatic, EOMI, oral mucosa was moist. Neck: No masses, JVD, or carotid bruits noted. Lungs: No respiratory distress. SCM. Bilateral air entry. Clear to auscultation bilaterally. No rales, wheezing, or rhonchi noted. Cardio: Irregularly irregular rate and rhythm. Abdomen: Soft, nontender, nondistended, no organomegaly. Normal active bowel sounds x4 quadrants. Extremities: No edema, clubbing, or cyanosis noted. +2 pulses noted throughout. Neuro: Cranial nerves II through XII are grossly intact. No obvious focal deficit identified. Laboratory Tests 10/13/24 09:50 Assessment: -Altered mental status, improved -Acute respiratory distress -Influenza a positive -Acute HFpEF (LVEF: 50-55% by echo done 10/11/2024) -Paroxysmal atrial fibrillation/flutter with a RVR -Elevated troponin (type 2 FL) -NSVT -Nonobstructive CAD (20-30% stenosis of the LAD) by [facility]/coronary angiogram done 03/06/2018 -HTN -HLP -Hypothyroidism -Octogenarian Plan: 1. Acute HFpEF (LVEF: 50-55% by echo done 10/11/2024) -Improved -Continue furosemide 40 mg BID, metoprolol succinate 100 mg BID, and digoxin. -Please record strict I's and O's, daily weights, and restrict fluids to less than 2.0 L per day 2. Paroxysmal atrial fibrillation/flutter with a RVR -Substrate: Severe BAD -Inciting factor: Multiple, including acute respiratory distress, influenza A, and electrolyte abnormalities -12H telemetry: Atrial fibrillation/flutter, HR range: 74-107 bpm, with episodes of RVR, HR range: 120-155 bpm -Currently stable, asymptomatic, but in atrial fibrillation with RVR -In order to optimize HR control, we will administer a partial IV digoxin load (250 mcg x1, followed by 125 mg Q6H x 2 doses) -In addition, she will continue on metoprolol succinate 100 mg BID -If the patient's HR remains poorly controlled despite the increase in metoprolol succinate then we will likely initiate a digoxin load. -CHADS2 VASc score: 6 points. Continue Eliquis 2.5 mg BID (adjusted due to patient's age and weight) -Please keep the patient on continuous telemetry monitoring and maintain a potassium greater than 4.0 and magnesium greater than 2.0 3. Elevated troponin (type 2 FL) -HS troponin I peak: 103 -The elevated troponin is thought to be a type 2 FL (demand ischemia) induced by the respiratory distress, influenza A, atrial fibrillation with RVR, and acute on chronic HFrEF, and not secondary to ACS. -As a result, we do not recommend any further cardiac workup/testing/imaging, and instead we recommend treating the inciting factors. -In the meantime, the patient will continue on metoprolol succinate 100 mg BID and atorvastatin 20 mg QHS. MOUNIKA FERNANDO MD Oct 13, 2024 16:10
[2024-10-13] MEDS: DIGOxin 250 MCG/ML 2ML AMP IV SCH (18:35)
[2024-10-14] VITALS (12 sets, daily range): BP systolic 97–120; BP diastolic 48–69; PULSE 64–90; RESP 17–20; TEMP 97.9–98.4; O2SAT 95–98
[2024-10-14 06:43] LABS: HEMATOCRIT 42.4 % (36-48); MEAN CORPUSCULAR HGB CONC 32.1 g/dL (32.0-36.0); MEAN CORPUSCULAR VOLUME 87.2 fL (79-99); RED BLOOD CELL COUNT(AUTO) 4.86 MIL/uL (4.00-5.50); RED CELL DISTRIBUTION WIDTH 13.9 % (11.0-15.5); WHITE BLOOD COUNT (AUTO) 7.3 K/uL (4.8-10.8)
[2024-10-14 07:01] LABS: ALBUMIN 3.5 g/dL (3.5-5.0); BILIRUBIN,TOTAL 0.9 mg/dL (0.2-1.0); CREATININE 1.3 mg/dL (0.5-1.0); MAGNESIUM 2.1 mg/dL (1.80-2.40); POTASSIUM 3.6 mmol/L (3.5-5.1); TOTAL PROTEIN, SERUM 6.9 g/dL (6.0-8.3)
[2024-10-14 07:20] LABS: DIGOXIN 1.05 ng/mL (0.50-2.00)
--- NOTE | 2024-10-14 09:42 | PN ---
PROBLEM LIST: * Altered mental status, improved. * Acute respiratory distress, improving. * Influenza A positive titers. * Acute heart failure with preserved ejection fraction, EF of 50-55% by echocardiography on this admission. * Paroxysmal atrial fibrillation with rapid ventricular response. * Type 2 myocardial infarction, supply demand mismatch. * Nonsustained VT. * Nonobstructive CAD by cardiac catheterization in 02/2018. * Hypertension. * Hyperlipoproteinemia. * Hypothyroidism, on supplement. * Frail octogenarian. This patient has been hospitalized predominantly because of a febrile illness. We were consulted because of an elevated troponin. Dr. Fernando has seen the patient yesterday and felt that it was a type 2 supply demand mismatch. I did not recommend any further cardiac workup. On assessing the patient, her vital signs have been stable. She has been afebrile. Her heart rate has been in the 70s. Her respiratory rate has been 18-20. Her blood pressure is 115-120 systolic range. She is saturating at 96-98% on room air. The patient's laboratory studies revealed a white count of 7.3, H and H are stable at 13.6 and 42.4 respectively. The patient's platelet count 168,000. Her chemistries revealed a sodium of 139, potassium is 3.6, which is being addressed per protocol. Her chloride is 102, CO2 is 31. Her BUN is 19, creatinine is 1.3 with GFR 40, down from 44 on the 9. The patient's chemistries have otherwise been in adequate range. The BNP on the was 468. The patient is currently maintained on levothyroxine, metoprolol, atorvastatin, furosemide, apixaban, Tamiflu, pantoprazole, baby aspirin, Zosyn, Atrovent, albuterol, and p.r.n. medications. At this point, the patient appears to be stable from the cardiac standpoint. We will continue the current management and reevaluate her as needed. We will be happy to see the patient as an outpatient once she has been dismissed and we would like to thank you for allowing us to participate in her care. TID: [id number] RECEIPT: [id number]
--- NOTE | 2024-10-14 14:32 | NUR ---
RECEIVED CALL FROM PATIENT'S DAUGHTER REQUESTING UPDATE ON PATIENT. UPDATED DAUGHTER ON CURRENT CONDITION. DAUGHTER IS SATISFIED WITH RESPONSES AND HAS NO FURTHER QUESTIONS. LEARNED FROM DAUGHTER THAT PATIENT HAS TENDENCY TO SUNDOWN. PATIENT APPEARS ALERT AND ORIENTED, HOWEVER, UPON REASSESSMENT, NOTICED THAT PATIENT IS SLIGHTLY CONFUSED. PATIENT IS IN A GOOD MOOD AND IS FRIENDLY, HOWEVER, WILL OCCASIONALLY SAY THINGS NOT RELATED TO CURRENT CONVERSATION. DUE TO PATIENT'S MILD CONFUSION, BED ALARM HAS BEEN REACTIVATED DESPITE PATIENT HAVING SIGNED REFUSAL FORM.
[2024-10-14] MEDS: PoTASSium chloRIDE 20MEQ ER 20 MEQ ERTAB PO PRN (17:25)
[2024-10-15] VITALS (8 sets, daily range): BP systolic 112–136; BP diastolic 64–72; PULSE 60–90; RESP 16–19; TEMP 98–98.4; O2SAT 97–99
--- NOTE | 2024-10-15 10:31 | DS ---
Discharge Summary Hospital Course Summary: 84-year-old female with past medical history of hypothyroidism, essential hypertension, AFib, CKD, CHF and hyperlipidemia was admitted to the medical floor under the hospitalist team with diagnosis of sepsis secondary to viral syndrome and metabolic encephalopathy. Today on bedside evaluation patient was found awake alert and oriented x 3. The power chart reviewed, vital signs, laboratory tests, imaging test and medica tions have been reviewed. No incidences reported overnight by primary nurse Juan GARAY. On bedside evaluation patient is sitting in persistent comfort on hospital bed. Vital signs are stable, afebrile, satting 97% on room air. Lung sounds are clear to auscultation bilaterally. Patient denies any chest pain, shortness of breath or fevers. CBC is unremarkable. Renal function is stable with latest BUN at 19, creatinine 1.3, otherwise CMP is stable. From medical standpoint patient is stable and cleared for discharge home. Advised to follow up with her PCP in 2-3 days for continued evaluation. Finish today's Tamiflu last dose at p.m.. We will discontinue IV antibiotics. Continue home medications as usual. Patient verbalized understanding of instructions and discharge plan. Medications have been reconciled. Script has been sent to patient's pharmacy. Toolroom Machinist(s): Agricultural Pilot Dr. Garcia Assessment/Plan: ASSESSMENT: Metabolic encephalopathy secondary to infection POA improved Sepsis,secondary to viral syndrome and PNA POA improved Influenza A positive, POA Acute diastolic congestive heart failure present on admission , POA improved BISHNU versus CKD, POA stable Elevated troponin, POA elevated BNP, POA improved AFib with RVR exacerbation, POA hypercoagulable state secondary to A fibb on Anticoagulate therapy Eliquis Right lower lobe pneumonia, POA suspecting aspiration pna. mild oral dysphagia POA Hypertension Hypothyroidism Hyperlipidemia] Noncompliance with treatment PLAN: [ ] Admit: PCCU condition: Guarded Status: Full code IVF: Hep-Lock fluids contraindicated Diet: Heart healthy Consultants audit control clerk's, cleared from Cardiology standpoint, recommends patient follow up in their clinic in the outpatient setting Diuretics Lasix 40 mg po b.i.d., metoprolol succinate ER 100 mg b.i.d. and aspirin we will continue with Eliquis 2.5 po bid Oxygen supplement to keep O2 sats above 92% as needed. Aspiration precautions head of the bed at 45 at all times. Mild oral dysphagia ground solids thin liquids. Antibiotics:Tamiflu 75 mg po bid, completes Tamiflu today , Zosyn IV every8 hours 3.375 g, we will transition off IV Zosyn Blood cultures negative 48 hours Continue bronchodilators as needed Labs cbc, cmp, mag+ Replace electrolytes as needed as per protocol to keep potassium above 4.0 magnesium 2.0. PT services " fall precaution : call light in reach Supportive measures: DVT ppx, GI ppx Medically stable for discharge This document was generated in part using voice recognition software, occasional wrong word or sound alike substitutions may have occurred due to the inherent limitations of voice recognition software. Read the chart carefully and recognize using context, where the substitutions have occurred. Although every effort was made to edit the content, web development instructor and typing errors may occur Discharge Instructions: Okay to discharge home. Follow up with PCP in 2-3 days for continued evaluation. Follow up with audit control clerk to two weeks for evaluation. Continue Eliquis, aspirin, atorvastatin, Lasix, levothyroxine, metoprolol succinate. Home Medications: Active Scripts Levofloxacin (Levofloxacin) 750 Mg Tablet, 750 MG PO DAILY for 5 Days, #5 TAB Prov:HIMANSHU WANG MD 09/03/23 Metoprolol Succinate (Toprol Xl) 50 Mg Tab.er.24h, 100 MG PO BID, #60 TAB 1 Refill Prov:HIMANSHU WANG MD 09/03/23 Levothyroxine Sodium (Synthroid 25 Mcg Tab) 25 Mcg Tablet, 25 MCG PO DAILY@0630, #30 TAB 0 Refills Prov:HIMANSHU WANG MD 09/03/23 Diltiazem HCl (Cardizem Cd 120 mg) 120 Mg Cap.er.24h, 120 MG PO DAILY, #30 CAPSULE.DR 0 Refills Prov:HIMANSHU WANG MD 09/03/23 Apixaban (Eliquis) 2.5 Mg Tablet, 2.5 MG PO BID, #60 TAB 0 Refills Prov:HIMANSHU WANG MD 09/03/23 Reported Medications Aspirin (Aspirin EC) 81 Mg Tablet.dr, 1 TAB PO DAILY for 30 Days, #30 TAB 0 Refills 10/11/24 Atorvastatin Calcium (Atorvastatin Calcium) 20 Mg Tablet, 20 MG PO HS, TAB 08/28/23 Time spent arranging discharge: 31-60 minutes CYNTHIA THIBODEAUX Oct 15, 2024 10:31
[2024-10-15] MEDS ORDERED: LEVO50CA4 PO (10:35)
[2024-10-15] MEDS ORDERED: FURO40TA7 PO (10:35)
[2024-10-15] MEDS ORDERED: OSEL75 PO (10:35)
--- NOTE | 2024-10-15 15:43 | NUR ---
DISCHARGE PATIENT'S SON ARRIVED ON UNIT TO [facility]OOKER PATIENT. PROVIDED DISCHARGE EDUCATION, DISCHARGE INSTRUCTIONS, AND MEDICATION LIST TO SON SON AWARE OF FOLLOW UP APPOINTMENTS FOR PATIENT ALL QUESTIONS ANSWERED.
== END 2024-10-15 15:45 | disposition home or self-care (01) | DRG 871 ==
LOC: EDH 18:18 → EDHIP 20:24 → 3DH 10-11 22:48
PROVIDERS: ADMIT Internal Medicine; ATTEND Internal Medicine
DX: A41.89 Other specified sepsis (principal); G93.41 Metabolic encephalopathy; I21.A1 Myocardial infarction type 2; I50.31 Acute diastolic (congestive) heart failure; J10.08 Influenza due to other identified influenza virus with other specified pneumonia; I13.0 Hypertensive heart and chronic kidney disease with heart failure and stage 1 through stage 4 chronic kidney disease, or unspecified chronic kidney disease; I48.19 Other persistent atrial fibrillation; D68.69 Other thrombophilia; I47.20 Ventricular tachycardia, unspecified; I48.92 Unspecified atrial flutter; Z20.822 Contact with and (suspected) exposure to COVID-19; N18.30 Chronic kidney disease, stage 3 unspecified; E78.00 Pure hypercholesterolemia, unspecified; E03.9 Hypothyroidism, unspecified; E11.22 Type 2 diabetes mellitus with diabetic chronic kidney disease; I25.10 Atherosclerotic heart disease of native coronary artery without angina pectoris; I34.0 Nonrheumatic mitral (valve) insufficiency; Z79.01 Long term (current) use of anticoagulants; Z79.82 Long term (current) use of aspirin; Z79.899 Other long term (current) drug therapy
CPT/HCPCS: 36415; 70450; 71045; 76376; 80048; 80053; 80061; 80076; 80162; 81001; 82570; 83605; 83735; 83880; 83935; 84100; 84132; 84145; 84300; 84443; 84484; 85025; 85027; 87040; 87426; 87804; 92610; 93005; 93306; 93356; 94640; 94664; 96374; 96375; 99285; G0378; J0456; J0696; J1160; J1644; J1940; J2543; J3475; J3490; J7614; A4510

== ENCOUNTER 2024-12-09 19:45 | Inpatient (IN) | payer MEDICARE ==
[~2024-12-09] VITALS: Ht 162.6 cm; Wt 56.7 kg
[~2024-12-09 19:45] MED LIST changes: +ASPI-1443 PO; -DILT120C89 PO; +FURO40TA7 PO; -LEVO25TA9 PO; +LEVO50CA5 PO; -LEVO750T40 PO; +OSEL75 PO
[2024-12-09] MEDS ORDERED: 0.9%NACL 1000ML 1,000 ML IV STA (20:00)
--- NOTE | 2024-12-09 20:28 | HMCIMG ---
Exam Type: CHEST 1VW Clinical Information: sepsis Comparison: None Findings: The lungs are clear of infiltrates. The heart is normal in size. The bony and soft tissue structures of the chest are unremarkable. Impression: Clear lungs.
[2024-12-09 20:33] LABS: BASOPHILS # (AUTO) 0.03 K/uL (0.00-0.20); BASOPHILS % (AUTO) 0.4 % (0.0-5.0); EOSINOPHILS # (AUTO) 0.01 K/uL (0.00-0.70); EOSINOPHILS % (AUTO) 0.1 % (0.0-8.0); HEMATOCRIT 40.5 % (36-48); IMMATURE GRANULOCYTE ABSOLUTE 0.03 K/uL (0-1); LYMPHOCYTES # (AUTO) 1.5 K/uL (1.0-4.8); LYMPHOCYTES % (AUTO) 17.9 % (21.0-51.0); MEAN CORPUSCULAR HEMOGLOBIN 28.2 pg (27.0-33.0); MEAN CORPUSCULAR HGB CONC 31.9 g/dL (32.0-36.0); MEAN CORPUSCULAR VOLUME 88.6 fL (79-99); MONOCYTES # (AUTO) 0.5 K/uL (0.1-1.0); MONOCYTES % (AUTO) 6.2 % (3.0-13.0); NEUTROPHILS # (AUTO) 6.3 K/uL (1.8-7.7); PLATELET COUNT (AUTO) 196 K/uL (130-400); RED BLOOD CELL COUNT(AUTO) 4.57 MIL/uL (4.00-5.50); RED CELL DISTRIBUTION WIDTH 14.4 % (11.0-15.5); WHITE BLOOD COUNT (AUTO) 8.3 K/uL (4.8-10.8)
[2024-12-09 20:42] LABS: CREATININE 1.2 mg/dL (0.5-1.0); POTASSIUM 3.9 mmol/L (3.5-5.1)
[2024-12-09] MEDS: 0.9%NACL 1000ML 1,000 ML IV SCH (20:51)
[2024-12-09 20:54] LABS: SARS-CoV-2, RNA, NAAT NEGATIVE SARS CoV-2 (NEGATIVE)
[2024-12-09 20:59] LABS: INFLUENZA TYPE A Negative For Type A (NEGATIVE); INFLUENZA TYPE B Negative For Type B (NEGATIVE)
--- NOTE | 2024-12-09 21:00 | HMCIMG ---
CT HEAD/BRAIN W/O CONTRAST INDICATION: ams TECHNIQUE: CT HEAD/BRAIN W/O CONTRAST. CT was performed with one or more of the following dose reduction techniques: Automated exposure control, adjustment of the mA and/or kV according to the patient's size, or use of the iterative reconstruction technique. Comparison: 10/10/2024 FINDINGS: Cerebral atrophy seen. Nonspecific periventricular and subcortical white matters changes are noted likely representing small vessel ischemic changes. No midline shift or herniation. No extra axial collection. No acute intracranial bleed. The visualized paranasal sinuses and mastoid air cells are normally aerated. IMPRESSION: Diffuse atrophy. No acute intracranial bleed is seen. Nonspecific white matter changes
--- NOTE | 2024-12-09 21:11 | ERN ---
ED Note History of Present Illness Stated Complaint: MULTIPLE COMPLAINTS Chief Complaint: Cough Time Seen by MD: 19:49 Time Seen by Midlevel: 19:51 Dictation: 84-year-old female with a history of AFib coming in brought by son for cough and increased confusion for the last couple of days. As per son the cough has been going on for two days and congestion however states she has been recently getting "forgetful but today has gotten worse. Allergies: Coded Allergies: No Known Drug Allergies (Verified Allergy, Unknown, 02/02/20) Home Meds Active Scripts Oseltamivir Phosphate (Tamiflu) 75 Mg Cap, 1 CAP PO BID for 1 Day, #2 CAP 0 Refills Prov:CYNTHIA THIBODEAUX DIRECTOR [employer] 10/15/24 Levothyroxine Sodium (Levothyroxine) 50 Mcg Capsule, 1 CAP PO DAILY for 30 Days, #30 CAP 0 Refills Prov:CYNTHIA THIBODEAUX [employer] 10/15/24 Furosemide (Lasix 40Mg Tab) 40 Mg Tablet, 1 TAB PO BID for 30 Days, #60 TAB 0 Refills Prov:CYNTHIA THIBODEAUX [facility] 10/15/24 Metoprolol Succinate (Toprol Xl) 50 Mg Tab.er.24h, 100 MG PO BID, #60 TAB 1 Refill Prov:HIMANSHU WANG MD 09/03/23 Apixaban (Eliquis) 2.5 Mg Tablet, 2.5 MG PO BID, #60 TAB 0 Refills Prov:HIMANSHU WANG MD 09/03/23 Reported Medications Aspirin (Aspirin EC) 81 Mg Tablet.dr, 1 TAB PO DAILY for 30 Days, #30 TAB 0 Refills 10/11/24 Atorvastatin Calcium (Atorvastatin Calcium) 20 Mg Tablet, 20 MG PO HS, TAB 08/28/23 Past Medical History Past Medical History: A-Fib, Hypertension Additional Past Medical Hx: ELEQUIS Surgical History: None History: Not Applicable Review of System Dictation Constitutional: Negative for fever,chills, and weight loss Eyes: Negative for injury, pain,redness, and discharge ENT: Negative for injury,pain or swelling Cardiovascular: Negative for chest pain, palpitations, and edema Respiratory: Positive for cough and wheezing, Abdomen/GI: Negative for abdominal pain, nausea, vomiting, diarrhea, and constipation Back: Negative for injury and pain : Negative for injury, bleeding and discharge MS/Extremity: Negative for injury and deformity Skin: Negative for rash, and discoloration Neuro: Negative for headache, weakness, numbness, tingling, and seizure Psych: Negative for suicide ideation, homicidal ideation, and hallucinations Review of Systems: was completed Initial Vital Sign VS Vital Signs Date Time Temp Pulse Resp B/P (MAP) Pulse Ox O2 Delivery O2 Flow Rate FiO2 12/09/24 19:56 98.4 148 18 147/82 99 Room Air 12/09/24 19:56 0 21 Physical Exam Dictation General: awake, alert, NAD Head/Face: Normocephalic, atraumatic Eyes: PERRL, EOMI, vision at baseline ENT: oral cavity clear, TMs clear, no signs of infection Neck: Trachea midline, supple, no nuchal rigidity Cardiovascular: RRR, normal S1/S2, No MRGs, no JVD Respiratory: CTAB, no respiratory distress, No rales or wheezes Abdomen: Soft, non-tender, non-distended, normal bowel sounds, no guarding or rebound. Skin: Warm, dry, normal turgor, no rash MS/Extremity: Pulses equal, no cyanosis, neurovascular intact, FROM Neuro: COAx4, GCS 15, strength 5/5, CN 2-12 intact, normal cerebellar exam, normal gait, Psych: Normal behavior, mood, and affect normal Results (Laboratory/Radiology) Laboratory/Radiology Laboratory Tests Test 12/09/24 20:10 12/09/24 21:45 12/10/24 00:48 12/10/24 00:55 White Blood Count 8.3 K/uL (4.8-10.8) Red Blood Count 4.57 MIL/uL (4.00-5.50) Hemoglobin 12.9 g/dL (12.0-16.0) Hematocrit 40.5 % (36-48) Mean Corpuscular Volume 88.6 fL (79-99) Mean Corpuscular Hemoglobin 28.2 pg (27.0-33.0) Mean Corpuscular Hemoglobin Concent 31.9 g/dL (32.0-36.0) L Red Cell Distribution Width 14.4 % (11.0-15.5) Platelet Count 196 K/uL (130-400) Mean Platelet Volume 11.2 fL (7.5-10.5) H Immature Granulocyte % (Auto) 0.4 % (0-1) Neutrophils (%) (Auto) 75.0 % (40.0-77.0) Lymphocytes (%) (Auto) 17.9 % (21.0-51.0) L Monocytes (%) (Auto) 6.2 % (3.0-13.0) Eosinophils (%) (Auto) 0.1 % (0.0-8.0) Basophils (%) (Auto) 0.4 % (0.0-5.0) Neutrophils # (Auto) 6.3 K/uL (1.8-7.7) Lymphocytes # (Auto) 1.5 K/uL (1.0-4.8) Monocytes # (Auto) 0.5 K/uL (0.1-1.0) Eosinophils # (Auto) 0.01 K/uL (0.00-0.70) Basophils # (Auto) 0.03 K/uL (0.00-0.20) Absolute Immature Granulocyte (auto 0.03 K/uL (0-1) Nucleated Red Blood Cells 0.0 % (0.0-0.19) Sodium Level 138 mmol/L (136-145) Potassium Level 3.9 mmol/L (3.5-5.1) Chloride Level 100 mmol/L (101-111) L Carbon Dioxide Level 26 mmol/L (21-32) Blood Urea Nitrogen 16 mg/dL (7-18) Creatinine 1.2 mg/dL (0.5-1.0) H Glomerular Filtration Rate Calc 44 mL/min (>90) Random Glucose 153 mg/dL (70-105) H Lactic Acid Level 2.9 mmol/L (0.8-2.5) H 2.4 mmol/L (0.8-2.5) Total Calcium 8.8 mg/dL (8.5-10.1) Ammonia < 10 umol/L (11-32) L Troponin I High Sensitivity 54 ng/L (4-50) *H Influenza Type A Antigen Negative For Type A Influenza Type B Antigen Negative For Type B SARS-CoV-2, RNA, NAAT NEGATIVE SARS CoV-2 Urine Color YELLOW (YELLOW) Urine Appearance CLEAR (CLEAR) Urine pH 5.5 (5.0-8.0) Urine Specific [place] 1.015 (1.001-1.031) Urine Protein 50 mg/dL (NEGATIVE) H Urine Glucose (UA) NEGATIVE mg/dL (NEGATIVE) Urine Ketones 5 mg/dL (NEGATIVE) H Urine Occult Blood MODERATE (NEGATIVE) H Urine Nitrate NEGATIVE (NEGATIVE) Urine Bilirubin NEGATIVE mg/dL (NEGATIVE) Urine Urobilinogen 0.2 mg/dL (0.2-1.0) Urine Leukocyte Esterase 25 Steven/uL (NEGATIVE) H Urine RBC 6-10 /HPF (0-1) H Urine WBC 2-5 /HPF (0-1) H Urine Squamous Epithelial Cells MOD /HPF (0-2) Urine Bacteria RARE /HPF (None Seen) Urine Opiates Screen NEGATIVE (NEGATIVE) Urine Barbiturates Screen NEGATIVE (NEGATIVE) Urine Phencyclidine Screen NEGATIVE (NEGATIVE) Urine Amphetamines Screen NEGATIVE (NEGATIVE) Urine Benzodiazepines Screen NEGATIVE (NEGATIVE) Urine Cocaine Screen NEGATIVE (NEGATIVE) Urine Marijuana (THC) Screen NEGATIVE (NEGATIVE) D-Dimer Quantitative (PE/DVT) 728 ng/mL (0-500) *H B-Type Natriuretic Peptide 2100 pg/mL (0-100) H Blood Gas Specimen Type Arterial Arterial Blood pH 7.386 (7.350-7.450) Arterial Blood Partial Pressure CO2 31 mmHg (32-45) L Arterial Blood Partial Pressure O2 64.2 mmHg (83.0-108.0) L Arterial Blood HCO3 17.9 mmol/L (21.0-28.0) L Arterial Blood Oxygen Saturation 91.5 % (94.0-98.0) L Arterial Blood Base Excess -6.0 mmol/L (-2.0-3.0) L Hemoglobin (Blood Gas) 12.2 g/dL (12.0-16.0) Sodium (Blood Gas) 134 MMOL/L (136-145) L Bedside Potassium (Blood Gas) 3.6 MMOL/L (3.4-4.5) Bedside Chloride (Blood Gas) 102 MMOL/L (98-107) Bedside Glucose (Blood Gas) 126 MG/DL (65-95) H Bedside Ionized Calcium (Blood Gas) 1.08 MMOL/L (1.15-1.33) L Bedside Lactic Acid (Blood Gas) 1.70 MMOL/L (0.36-0.75) H Blood Gas Temperature 37.0 CELSIUS (35.5-37.0) Blood Gas Vent Mode ROOMAIR (ROOM AIR) FiO2 21.0 % Blood Gas Specimen Comment RB [employer] ANDRES CAST Labs Reviewed?: Yes ED Course ED Course Orders Procedure Category Date Status Time Cbc With Differential LAB 12/09/24 Complete 19:58 Basic Metabolic Panel LAB 12/09/24 Complete 19:58 Lactic Acid LAB 12/09/24 Complete 19:58 Blood Cult RAMIRO 12/09/24 In Process 19:58 Chest 1vw RAD 12/09/24 Resulted 19:58 Covid Rna Naat LAB 12/09/24 Complete 19:58 Influenza Type A & B, LAB 12/09/24 Complete Rapid 19:58 Urinalysis Profile LAB 12/09/24 Complete 19:58 12 Lead Ekg Tracing- EKG 12/09/24 Logged Technical 19:58 Troponin I High LAB 12/09/24 Complete Sensitivity 19:58 0.9%Nacl 1000ml (Ns PHA 12/09/24 Complete 1000ml) 20:00 Ct Head/Brain W/O CT 12/09/24 Resulted Contrast 20:03 Ammonia LAB 12/09/24 Complete 20:03 0.9%Nacl 1000ml (Ns PHA 12/09/24 Complete 1000ml) 20:30 Drug Screen Urine LAB 12/09/24 Complete 19:58 Benzonatate 100 Mg PHA 12/09/24 Complete Capsule (Tessalon 100 21:08 Ceftriaxone 2gm Vial PHA 12/09/24 Complete (Rocephin 2gm Inj) 21:30 Lactic Acid (Removed) LAB 12/09/24 Complete 23:36 B-Type Natriuretic LAB 12/10/24 Complete Peptide 00:22 D-Dimer LAB 12/10/24 Complete 00:22 Admit Orders ADM 12/10/24 Transmitted 00:22 Arterial Blood Gas + RT 12/10/24 Transmitted 00:22 Arterial Blood Gas LAB 12/10/24 Complete Arterial + 00:55 Vital Signs Every 4 CPOE 12/10/24 Transmitted Hours 01:34 Daily Weights CPOE 12/10/24 Transmitted 01:34 I&O Q Shift CPOE 12/10/24 Transmitted 01:34 Activity: Bedrest CPOE 12/10/24 Transmitted With Brp 01:34 Heart Healthy Diet DIET 12/10/24 Transmitted Breakfast O2 Order RT 12/10/24 Transmitted 01:34 Cbc Without LAB 12/11/24 Verified Differential 04:00 Basic Metabolic Panel LAB 12/11/24 Verified 04:00 Magnesium LAB 12/11/24 Verified 04:00 Phosphorus LAB 12/11/24 Verified 04:00 Echo 2-D Complete ECHO 12/10/24 Logged 01:34 Pantoprazole 40mg Tab PHA 12/10/24 In Process (Protonix 40mg Tab 09:00 Acetaminophen 325 Tab PHA 12/10/24 In Process (Tylenol 325mg Tab 02:00 Acetaminophen 650mg PHA 12/10/24 In Process Supp (Tylenol 650mg 02:00 Lactulose 20 Gm/30 Ml PHA 12/10/24 In Process Udcup (Constulose 02:00 Docusate Sodium 100 PHA 12/10/24 In Process Mg Cap (Colace 100mg 02:00 Temazepam 15 Mg Cap PHA 12/10/24 In Process (Restoril 15 Mg Cap) 02:00 Ondansetron 4mg Inj PHA 12/10/24 In Process (Zofran 4mg Inj) 02:00 Hydralazine 20mg Inj PHA 12/10/24 In Process (Apresoline 20mg In 02:00 Telemetry Monitoring CPOE 12/10/24 Transmitted 01:34 Initiate DIANE 12/10/24 In Process Hyperglycemia Protoco 01:34 Insulin Regular, PHA 12/10/24 In Process Human 3ml (Humulin R 07:30 Doxycycline 100mg+Ns PHA 12/10/24 In Process 250ml (Doxycycline 02:00 Ceftriaxone 2gm Vial PHA 12/10/24 In Process (Rocephin 2gm Inj) 08:00 Daily Fluid Intake CPOE 12/10/24 Transmitted Restriction 01:34 Strict I&O CPOE 12/10/24 Transmitted 01:34 Ct Chest W/O Contrast CT 12/10/24 Logged 01:34 Nm Pulmonary/Lung NM 12/10/24 Logged Vent/Perf Vq 01:34 Us Venous Doppler US 12/10/24 Logged Bilateral 01:34 Current Medications Medications (Trade) Dose Ordered Sig/Artie Route PRN Reason Start Time Stop Time Status Last Admin Dose Admin Benzonatate (Tessalon 100mg Caps) 200 mg ONCE STAT PO 12/09/24 21:08 12/09/24 21:10 DC 12/09/24 21:17 Ceftriaxone Sodium (Rocephin 2gm Inj) 2 gm ONCE ONCE IVPB 12/09/24 21:30 12/09/24 21:32 DC 12/09/24 21:41 Sodium Chloride 1,000 ml @ 1,000 mls/hr Q1H IV 12/09/24 20:30 12/09/24 22:30 DC 12/09/24 21:39 Sodium Chloride 1,000 ml @ 1,000 mls/hr Q1H STAT IV 12/09/24 20:00 12/09/24 20:06 DC Vital Signs Date Time Temp Pulse Resp B/P (MAP) Pulse Ox O2 Delivery O2 Flow Rate FiO2 12/10/24 01:00 94 19 N/Cannula Low lpm 2.0 28 12/10/24 00:30 98.8 122 22 141/85 99 Room Air* 0 12/10/24 00:00 98.6 115 22 138/85 99 Room Air* 0 12/09/24 23:30 98.8 111 22 138/81 99 Room Air* 0 12/09/24 22:59 98.8 119 22 131/84 99 Room Air* 0 12/09/24 21:45 98.4 108 22 137/82 95 Room Air* 0 12/09/24 20:29 109 22 142/95 95 Room Air* 0 12/09/24 19:56 100.2 100 18 139/91 98 Room Air* 0 12/09/24 19:56 98.4 148 18 147/82 99 Room Air Medical Decision Making MDM MDM: Differential diagnosis: ACS, dehydration, pneumonia, altered mental status Rationale: Tests considered and ordered secondary to shared decision making include: Previous outside records reviewed: Old ER visits. Risk of complication and/or morbidity or mortality of patient management: None Medications-Per medication reconciliation Need for hospitalization: Patient does meet criteria for hospitalization. Need for emergency major/minor surgery: No There are no social concerns with this patient. Prescription drug management Prescriptions will include symptomatic care Patient's prior external medical records from other ER visits were reviewed by me as indicated. Prior testing and results from previous visits were reviewed. Prior tests were taken into account with medical decision making and resource utilization, independent historian/historians were used to obtain complete medical history. I independently interpreted the test that were performed, results were reviewed by me and considered findings on radiology if ordered. Medical management and examination interpretation discussions were had by me with other qualified healthcare professionals as indicated for the patient's care. DX & DISP Disposition: Inpatient Departure Impression: Primary Impression: Altered mental status Additional Impressions: Pneumonitis, Elevated troponin Condition: Stable Referrals: DAE TITUS [employer] (PCP) I have reviewed the case, and I agree with, Diagnosis and Plan I performed the substantive portion of the visit. I have reviewed and personally made and approve the management plan that is documented in the note by myself or the BEA. I acknowledge for responsibility for the patient's management plan. GLEN BENSON NP December 09, 2024 21:11 BAM CASTANO December 10, 2024 00:52
[2024-12-09] MEDS: BENZONATATE 100 MG CAPSULE PO STA (21:17)
[2024-12-09] MEDS: CEFTRIAXONE 2GM VIAL IVPB ONE (21:41)
[2024-12-09 21:53] LABS: ADD UA MICROSCOPIC YES; APPEARANCE,URINE CLEAR (CLEAR); BILIRUBIN,URINE NEGATIVE (NEGATIVE); COLOR,URINE YELLOW (YELLOW); GLUCOSE, URINE (UA) NEGATIVE (NEGATIVE); KETONES,URINE 5 mg/dL (NEGATIVE); LEUKOCYTE ESTERASE ,URINE 25 Leu/uL (NEGATIVE); NITRATE,URINE NEGATIVE (NEGATIVE); OCCULT BLOOD,URINE MODERATE (NEGATIVE); PH,URINE 5.5 (5.0-8.0); PROTEIN,URINE 50 mg/dL (NEGATIVE); UROBILINOGEN,URINE 0.2 mg/dL (0.2-1.0)
[2024-12-09 21:56] LABS: BACTERIA,URINE RARE /HPF (None Seen); MUCUS,URINE RARE LPF (None Seen); SQUAMOUS EPITHELIAL CELL,UR MOD /HPF (0-2)
[2024-12-09 22:03] LABS: AMPHET/METH SCREEN,URINE NEGATIVE (NEGATIVE); BARBITURATE SCREEN, URINE NEGATIVE (NEGATIVE); BENZODIAZEPINES SCREEN,URINE NEGATIVE (NEGATIVE); CANNABINOID SCREEN,URINE NEGATIVE (NEGATIVE); COCAINE SCREEN,URINE NEGATIVE (NEGATIVE); OPIATE SCREEN,URINE NEGATIVE (NEGATIVE); PHENCYCLIDINE SCREEN,URINE NEGATIVE (NEGATIVE)
[2024-12-10] VITALS (7 sets, daily range): BP systolic 120; BP diastolic 62; PULSE 89–104; RESP 19–24; TEMP 98.5; O2SAT 92–97
--- NOTE | 2024-12-10 00:37 | HP ---
[facility] HISTORY AND PHYSICAL Date of Service: December 10, 2024 Time of Service: 00:36 DAE TITUS [employer] (PCP) Supervising and attending physicians: Dr. Rangel and Dr. Esqueda HISTORY OF PRESENT ILLNESS: Ms. Omer is a 84-year-old female with a history of AFib on Eliquis and hypertension who presented to [facility] ED for evaluation of cough and confusion x2 days. The patient was in brought by son for concern of a the cough developing to pneumonia. As per son the last time the patient had a cough she developed pneumonia. The son also reported the patient been recently getting "forgetful but today has gotten worse. He states that the patient had a bowel movement in her under worse which is unusual for her. He stated the BM was formed, the patient did not have diarrhea. ED provider request patient be admitted with the diagnosis of altered mental status, pneumonitis, and elevated troponin. I assessed the patient at bedside in room hallway B. the patient's breathing was even, unlabored, in no distress. She had some episodes of cough. Patient is not oriented to day nor reason for the visit. She reports that she is here because her "legs had a seizure". The patient denied chest pain, shortness of breath, any other pain, problem or concern. I informed the patient and son of labs, diagnostics, and plan of care. They verbalized understanding and are in agreement with the plan. Plan and assessment as listed below. REVIEW OF SYSTEMS 12-point ROS reviewed with patient. All pertinent positives mentioned above. Otherwise negative, noncontributory, non-pertinent. PAST MEDICAL HISTORY: As mentioned above PAST SURGICAL HISTORY: None PAST SOCIAL HISTORY: Denies alcohol, tobacco, illicit drug use. FAMILY HISTORY: Noncontributory Coded Allergies: No Known Drug Allergies (Verified Allergy, Unknown, 02/02/20) PHYSICAL EXAM GENERAL APPEARANCE: The patient is awake, alert, oriented to person, place, in no acute cardiopulmonary distress. NEUROLOGICAL: Cranial nerves II-XII grossly intact. Motor is 5/5 in bilateral upper and lower extremities proximal to distal. No sensory deficits. HEENT: Face is symmetric. Pupils are equal and reactive. Extraocular movements are intact. NECK: Supple. No JVD. No thyromegaly. No submental, submandibular, pre- /postauricular, occipital or supraclavicular lymphadenopathy. CHEST: Normal chest expansion. No Telemetry. LUNGS: Absence of any rales, rhonchi or any wheezing. CARDIOVASCULAR: Regular. S1 and S2 normal. No appreciable rubs, murmurs or gallops. ABDOMEN: Soft, nontender, and nondistended. There is no rebound, voluntary guarding, or rigidity. : Deferred. No [place]. EXTREMITIES: Non-edematous and not cyanotic. No clubbing. Good capillary refill. SKIN: No skin breakdown. Vital Sign (Last 24 Hours) 12/09/24 22:59 Temp 98.8 Pulse 119 Resp 22 B/P (MAP) 131/84 Pulse Ox 99 O2 Delivery Room Air* O2 Flow Rate 0 FiO2 21 LABS: Laboratory: Test 12/09/24 21:45 12/09/24 20:10 Range/Units Urine Color YELLOW YELLOW Urine Appearance CLEAR CLEAR Urine pH 5.5 5.0-8.0 Urine Specific [place] 1.015 1.001-1.031 Urine Protein 50 H NEGATIVE mg/dL Urine Glucose (UA) NEGATIVE NEGATIVE mg/dL Urine Ketones 5 H NEGATIVE mg/dL Urine Occult Blood MODERATE H NEGATIVE Urine Nitrate NEGATIVE NEGATIVE Urine Bilirubin NEGATIVE NEGATIVE mg/dL Urine Urobilinogen 0.2 0.2-1.0 mg/dL Urine Leukocyte Esterase 25 H NEGATIVE Steven/uL Urine RBC 6-10 H 0-1 /HPF Urine WBC 2-5 H 0-1 /HPF Urine Squamous Epithelial Cells MOD 0-2 /HPF Urine Bacteria RARE None Seen /HPF Urine Opiates Screen NEGATIVE NEGATIVE Urine Barbiturates Screen NEGATIVE NEGATIVE Urine Phencyclidine Screen NEGATIVE NEGATIVE Urine Amphetamines Screen NEGATIVE NEGATIVE Urine Benzodiazepines Screen NEGATIVE NEGATIVE Urine Cocaine Screen NEGATIVE NEGATIVE Urine Marijuana (THC) Screen NEGATIVE NEGATIVE White Blood Count 8.3 4.8-10.8 K/uL Red Blood Count 4.57 4.00-5.50 MIL/uL Hemoglobin 12.9 12.0-16.0 g/dL Hematocrit 40.5 36-48 % Mean Corpuscular Volume 88.6 79-99 fL Mean Corpuscular Hemoglobin 28.2 27.0-33.0 pg Mean Corpuscular Hemoglobin Concent 31.9 L 32.0-36.0 g/dL Red Cell Distribution Width 14.4 11.0-15.5 % Platelet Count 196 130-400 K/uL Mean Platelet Volume 11.2 H 7.5-10.5 fL Immature Granulocyte % (Auto) 0.4 0-1 % Neutrophils (%) (Auto) 75.0 40.0-77.0 % Lymphocytes (%) (Auto) 17.9 L 21.0-51.0 % Monocytes (%) (Auto) 6.2 3.0-13.0 % Eosinophils (%) (Auto) 0.1 0.0-8.0 % Basophils (%) (Auto) 0.4 0.0-5.0 % Neutrophils # (Auto) 6.3 1.8-7.7 K/uL Lymphocytes # (Auto) 1.5 1.0-4.8 K/uL Monocytes # (Auto) 0.5 0.1-1.0 K/uL Eosinophils # (Auto) 0.01 0.00-0.70 K/uL Basophils # (Auto) 0.03 0.00-0.20 K/uL Absolute Immature Granulocyte (auto 0.03 0-1 K/uL Nucleated Red Blood Cells 0.0 0.0-0.19 % Sodium Level 138 136-145 mmol/L Potassium Level 3.9 3.5-5.1 mmol/L Chloride Level 100 L 101-111 mmol/L Carbon Dioxide Level 26 21-32 mmol/L Blood Urea Nitrogen 16 7-18 mg/dL Creatinine 1.2 H 0.5-1.0 mg/dL Glomerular Filtration Rate Calc 44 >90 mL/min Random Glucose 153 H 70-105 mg/dL Lactic Acid Level 2.9 H 0.8-2.5 mmol/L Total Calcium 8.8 8.5-10.1 mg/dL Ammonia < 10 L 11-32 umol/L Troponin I High Sensitivity 54 *H 4-50 ng/L Influenza Type A Antigen Negative For Type A NEGATIVE Influenza Type B Antigen Negative For Type B NEGATIVE SARS-CoV-2, RNA, NAAT NEGATIVE SARS CoV-2 NEGATIVE Current Medications Medications (Trade) Dose Ordered Sig/Artie Route PRN Reason Start Time Stop Time Status Last Admin Dose Admin Benzonatate (Tessalon 100mg Caps) 200 mg ONCE STAT PO 12/09/24 21:08 12/09/24 21:10 DC 12/09/24 21:17 200 MG Sodium Chloride 1,000 ml @ 1,000 mls/hr Q1H IV 12/09/24 20:30 12/09/24 22:30 DC 12/09/24 21:39 1,000 MLS/HR Sodium Chloride 1,000 ml @ 1,000 mls/hr Q1H STAT IV 12/09/24 20:00 12/09/24 20:06 DC DIAGNOSTICS / RADIOLOGY: [ ] ASSESSMENT: Acute hypoxemic respiratory failure, POA CHF with acute exacerbation, POA, BNP 2100 Acute sepsis without septic shock (tachycardia, tachypnea, fever, lactic acidosis) Elevated D-dimer, rule out PE and DVT Persistent acute cough Acute complicated cystitis, POA Acute metabolic encephalopathy, POA Dehydration Acute on chronic kidney disease stage 3b, GFR 44 Diabetes mellitus with hyperglycemia Lactic acidosis Elevated troponin PLAN: -Admit to Medical floor with continuous telemetry monitoring -Monitor respiratory status closely. -Continue oxygen therapy as needed. Titrate oxygen prn to keep Spo2>/+=92%. -Pulmicort & Atrovent scheduled. -Albuterol PRN. -RT to provide IS and education on use. -Robitussin DM as needed cough. -Solu-Medrol IV daily. -Continue antibiotic therapy: Doxycycline IV and Rocephin IV -Trend troponin and EKG. -Fluid restrictions a 1200 mL. -strict I&Os. -daily weights. -Tylenol as needed fever/ pain. -Glucometer checks AC & HS needed with insulin regular sliding scale coverage as needed. -Blood pressure checks every 4 hours and as needed. -Reconcile home medications once available. -Start labetalol IV as needed systolic blood pressure greater than 160 -AM labs: monitor renal and liver function, monitor electrolytes and replace PRN -GI and DVT prophylaxis -Additional plan and assessment are listed below. ADVANCED CARE PLANNING 1. Which of the following were discussed? Hospice Care - No Therapeutic options - Yes Advance Directives - Yes Other discussions - 2. Discussed with who? Patient 3. Voluntary nature of this service was explained to the patient? Yes 4. Amount of time spent - __ over 35 minutes 5. Reviewed by Physician? (if this service was performed by BEA) Yes ATTESTATION BY PHYSICIAN I have seen and examined the patient. I reviewed the documentation, medical decision making, and treatment plan as noted by the mid-level provider above. I agree with the findings and plan of care. JOYCE OLSON December 10, 2024 00:37
[2024-12-10 00:57] LABS: ABG HCO3 17.9 mmol/L (21.0-28.0); ABG OXYGEN SATURATION 91.5 % (94.0-98.0); ABG PCO2 31 mmHg (32-45); ABG PH 7.386 (7.350-7.450); CARBON MONOXIDE 0.1 % (0.5-1.5); HHb 8.5; PO2, ARTERIAL BG 64.2 mmHg (83.0-108.0); VENT MODE, BG ROOMAIR (ROOM AIR)
--- NOTE | 2024-12-10 01:00 | NUR ---
Report recieved from Jackie GARAY
[2024-12-10] MEDS ORDERED: acetaMINOPHEN 650 MG SUPPOSITORY RC PRN (02:00)
[2024-12-10] MEDS ORDERED: ondanSETRON 4MG INJ IVP PRN (02:00)
[2024-12-10] MEDS ORDERED: doCUSate SODIUM 100 MG CAP PO PRN (02:00)
[2024-12-10] MEDS ORDERED: hydrALAZine 20MG/ML VIAL IV PRN (02:00)
[2024-12-10] MEDS ORDERED: TEMAZepam 15 MG CAPSULE PO PRN (02:00)
[2024-12-10] MEDS ORDERED: LACTULOSE 20 GM/30 ML UDCUP PO PRN (02:00)
[2024-12-10] MEDS: DOXYCYCLINE 100MG+NS 250ML 250 ML IV SCH (02:21)
--- NOTE | 2024-12-10 04:39 | NUR ---
Report given to Tawny GARAY
--- NOTE | 2024-12-10 04:58 | NUR ---
PT CARE ASSUMED AT THIS TIME
--- NOTE | 2024-12-10 07:07 | NUR ---
REPORT GIVEN TO RILEY GARAY AT THIS TIME
[2024-12-10] MEDS: INSULIN humuLIN R 100 UNIT/ML 3ML SQ SCH (07:30)
--- NOTE | 2024-12-10 07:50 | EKG ---
[facility] Test Date: 2024-12-09 Test Time: 20:19:33 Pat Name: TOMY GROSS Department: EDHIP Room: 310 Gender: F In File Operator: [id number] : 1940 Requested By: GLEN BENSON Order Number: [id number] Reading MD: Mirella Sandoval Measurements Intervals [place] Rate: 131 P: 0 IL: 0 QRS: 85 QRSD: 76 T: -79 QT: 312 QTc: 444 Interpretive Statements Atrial flutter with 2:1 AV block Paired ventricular premature complexes Repolarization abnormality, prob rate related Compared to ECG 10/10/2024 19:36:19 2:1 AV block now present Ventricular premature complex(es) now present Sinus rhythm no longer present Possible ischemia no longer present Prolonged QT interval no longer present Electronically Signed On 12-11-2024 09:18:51 CDT by Mirella Sandoval Please click the below link to view image of tracing.
--- NOTE | 2024-12-10 08:21 | HMCIMG ---
CT NONCONTRAST CHEST Comparison Study: none History: hypoxemia, recurrent cough Technique: Helical CT of the chest without IV contrast at 5 mm collimation. Coronal and sagittal reformations also done. CT Dose Index (CTDI): 2.38 mGy Dose Length Product (DLP): 94.8 total mGy-cm Findings: The airway is intact. The trachea and major bronchi are unremarkable. The chest exam shows no pulmonary nodules or masses. Interstitial pulmonary fibrotic changes with possible bilateral upper lobe mild superimpose infiltrates. Fluid and particulate matter within the distended esophagus suggestive of gastroesophageal reflux. No pulmonary infiltrates or mass lesions are seen. Mild right pleural effusion. There is no pneumothorax. There is no evidence of pneumomediastinum. The nonenhanced exam of the willis and mediastinum is unremarkable. No evidence of hilar enlargement is seen. The aorta shows no aneurysmal dilatation or significant atheromatous calcification. No significant brachiocephalic vascular abnormalities are seen. Coronary arterial and cardiac valvular calcifications are identified. Mild pericardial effusion. The rib cage appears unremarkable. The soft tissues of the chest wall are unremarkable. The dorsal spine shows no significant abnormalities. Upper abdomen shows cholelithiasis and simple cysts of the kidneys. There is also simple cyst anterior aspect of the spleen. IMPRESSION: Interstitial pulmonary fibrotic changes with possible bilateral upper lobe mild superimpose infiltrates. Fluid and particulate matter within the distended esophagus suggestive of gastroesophageal reflux. Other findings as described. This study was performed using dose reduction techniques to include automated exposure control and/or adjustment of the mA and/or kV according to patient size.
--- NOTE | 2024-12-10 08:30 | NUR ---
ASSESSMENT: PT WAS ASLEEP BUT AWOKE QUICKLY W/LIGHT TOUCH STIMULI. NO ACUTE DISTRESS NOTED AT THIS TIME. HOB SLIGHTLY ELEVATED. SR UP X 1 NEURO: PT ALERT BUT MILDLY CONFUSED. SHE THOUGHT I WAS HER SON. SHE HAS A GCS OF 14 BUT THE PT IS VERY COOPERATIVE AND CALM. PT DOES FOLLOW COMMANDS. CARDIO/PULMONARY: LS DIMINISHED TO BASES BILATERALLY. RUL RALES W/EXPIRATORY WHEEZE AND WHEEZE TO JEREMIE TO EXHALATION. SATS WHEN AWAKE CURRENTLY 94% ROOM AIR. NO USE OF ACCESSORY MUSCLES NOR STERNAL RETRACTIONS NOTED. NO CYANOSIS NOTED TO NAIL BEDS. CAP REFILL AT 3-4 SECONDS. PT DOES HAVE AN UNPRODUCTIVE SOUNDING "WET" COUGH. HEART RATE IS IRREGULAR BETWEEN 80-110BPM. SL TO R AC WHICH IS PATENT.(HX OF AFIB). GI/: PT DENIES ANY N/V. SHE DOES STATE THAT SHE HAS BEEN URINATING FREQUENTLY. PT DENIES ANY LOOSE STOOLS OR DIARRHEA. +BS X 4 QUAD. NO ABD/BLADDER DISCOMFORT. PT STATES THAT HER APETITE HAS NOT BEEN GREAT RECENTLY. MUSCULOSKELETAL/INTEGUMENTARY: PT HAS FULL ROM BUT SHE STATES SHE FEELS JUST A LITTLE WEAK. NO SKIN BREAKDOWN NOTED NOR VERBALIZED BY THE PT.
--- NOTE | 2024-12-10 08:35 | NUR ---
CLINICAL SPECIALIST CURRENTLY AT BEDSIDE W/PT.
--- NOTE | 2024-12-10 08:53 | HMCIMG ---
Exam Type: US VENOUS DOPPLER BILATERAL Clinical Information: elevated DDIMER, hypoxemia Comparison: None Findings: The examination shows normal deep venous system. There is normal compressibility at all levels. There is no intraluminal clot. There is no occlusion. Adequate response is obtained on augmentation. Impression: No evidence of DVT.
[2024-12-10] MEDS ORDERED: BUDESONIDE 0.5 MG/2 ML INH IH SCH (09:00)
[2024-12-10] MEDS ORDERED: IpraTROPium 0.5 MG/2.5 ML INH IH SCH (09:00)
--- NOTE | 2024-12-10 09:00 | NUR ---
PT ASSISTED OOB TO BR VIA W/C TO VOID.
--- NOTE | 2024-12-10 10:15 | NUR ---
RESPIRATORY DEPARTMENT: RICCARDO DETECTIVE SERGEANT INFORMED OF NEW NEB ORDERS AND INECTIVE SPIROMETRY
--- NOTE | 2024-12-10 10:33 | NUR ---
DCP: HOME VS [facility] met with pt who lives at her son Zeus Omer' [phone] home. Pt reports she remains active and independent, still drives herself as needed. Pt denies need for assistance with her ADLS, home management or meal prep. Pt uses no DME or in home care services. PCP is Aaron Carlos and uses [facility] for rx needs. Pt states she wants to go to [facility] if SNF is recommended. Pt signed consent and it was placed in her chart. CM to follow and assist as needed Addendum: 12/10/24 at 1038 by JUANA MARQUEZ Amended: Links added.
[2024-12-10 10:41] LABS: HEMATOCRIT 38.5 % (36-48); MEAN CORPUSCULAR HGB CONC 31.7 g/dL (32.0-36.0); MEAN CORPUSCULAR VOLUME 88.3 fL (79-99); RED BLOOD CELL COUNT(AUTO) 4.36 MIL/uL (4.00-5.50); RED CELL DISTRIBUTION WIDTH 14.5 % (11.0-15.5); WHITE BLOOD COUNT (AUTO) 7.3 K/uL (4.8-10.8)
[2024-12-10 10:48] LABS: POTASSIUM 3.4 mmol/L (3.5-5.1)
[2024-12-10 10:50] LABS: HEMOGLOBIN A1C 6.2 % (4.0-6.0)
[2024-12-10 11:01] LABS: ALBUMIN 3.5 g/dL (3.5-5.0); BILIRUBIN,TOTAL 0.8 mg/dL (0.2-1.0); THYROID STIMULATING HORMONE 1.18 uIU/mL (0.36-3.74); TOTAL PROTEIN, SERUM 6.9 g/dL (6.0-8.3)
--- NOTE | 2024-12-10 11:10 | NUR ---
CASE MANAGEMENT: JOSS HAS BEEN IN TO SEE THE PT AND SHE HAS SPOKEN/CALLED TO THE FAMILY
[2024-12-10] MEDS: furoSEMIDE 40MG VIAL IV SCH (11:16)
[2024-12-10] MEDS: PANTOPrazole 40 MG TAB DR PO SCH (11:16)
[2024-12-10] MEDS: CEFTRIAXONE 2GM VIAL IVPB SCH (11:16)
--- NOTE | 2024-12-10 12:02 | EKG ---
[facility] Test Date: 2024-12-10 Test Time: 10:50:32 Pat Name: TOMY GROSS Department: EDHIP Room: 310 Gender: F Programmer Numerical Control: 0723 : 1940 Requested By: JOYCE OLSON Order Number: [id number] Reading MD: Mirella Sandoval Measurements Intervals [place] Rate: 98 P: 0 AR: 0 QRS: 82 QRSD: 87 T: -86 QT: 358 QTc: 464 Interpretive Statements Atrial fibrillation Repol abnrm suggests ischemia, diffuse leads Compared to ECG 12/09/2024 20:19:33 Possible ischemia now present Atrial flutter no longer present 2:1 AV block no longer present Ventricular premature complex(es) no longer present Electronically Signed On 12-11-2024 09:19:03 CDT by Mirella Sandoval Please click the below link to view image of tracing.
--- NOTE | 2024-12-10 12:08 | NUR ---
PT JUST RETURNED FROM [facility]. [facility] WAS MADE AWARE THAT THE PT HAS JUST RETURNED
[2024-12-10] MEDS: IpraTROPium 0.5 MG/2.5 ML INH IH SCH (12:14)
[2024-12-10] MEDS: ALBUTEROL 0.083% 2.5 MG/3 ML INH IH PRN (12:14)
--- NOTE | 2024-12-10 13:50 | NUR ---
DR VU WAS IN TO SEE THE PT.
--- NOTE | 2024-12-10 13:50 | NUR ---
JANUSZ CONRAD WAS IN TO SEE ED BED 9
--- NOTE | 2024-12-10 14:58 | NUR ---
[id number] PT AGAIN ASSISTED OOB TO BR TO VOID.
[2024-12-10] MEDS: acetaMINOPHEN 325 MG TAB PO PRN (15:07)
[2024-12-10] MEDS: guaiFENesin SUGAR-FREE 100 MG/5 ML UDCUP PO PRN (15:08)
--- NOTE | 2024-12-10 15:19 | PN ---
[facility] PROGRESS NOTE Date of Service: December 10, 2024 Time of Service: 15:[address] Vu SUBJECTIVE: [ 12/09/24 Ms. Omer is a 84-year-old female with a history of AFib on Eliquis and hypertension who presented to [facility] for evaluation of cough and confusion x2 days. The patient was in brought by son for concern of a the cough developing to pneumonia. As per son the last time the patient had a cough she developed pneumonia. The son also reported the patient been recently getting "forgetful but today has gotten worse. He states that the patient had a bowel movement in her under worse which is unusual for her. He stated the BM was formed, the patient did not have diarrhea. ED provider request patient be admitted with the diagnosis of altered mental status, pneumonitis, and elevated troponin. I assessed the patient at bedside in room hallway B. the patient's breathing was even, unlabored, in no distress. She had some episodes of cough. Patient is not oriented to day nor reason for the visit. She reports that she is here because her "legs had a seizure". The patient denied chest pain, shortness of breath, any other pain, problem or concern. I informed the patient and son of l abs, diagnostics, and plan of care. They verbalized understanding and are in agreement with the plan. Plan and assessment as listed below. 12/10/24 patient was seen by nurse practitioner physician during rounding in emergency department in room ED 9. Nurse practitioner reviewed all the radiology chest x-ray was negative head CT negative chest CT showed pulmonary fibrotic changes bilateral upper lobe via superimposed infiltrate. GERD. Patient's D-dimer came back highly elevated. Venous Dopplers was negative for DVT. V/Q scan was already performed we are pending bleeding. 2D echo is pending. Patient's BNP is 2100. Patient continues on furosemide 40 mg IV push q.12 hours. Troponin 89 patient denies any chest pain, nausea, vomiting. Patient is wheezing on auscultation. At this moment we will continue monitoring patient a.m. labs] REVIEW OF SYSTEMS 12-point ROS reviewed with patient. All pertinent positives mentioned above. Otherwise negative, noncontributory, non-pertinent. PHYSICAL EXAM GENERAL APPEARANCE: The patient is awake, alert, oriented to person, place, in no acute cardiopulmonary distress. NEUROLOGICAL: Cranial nerves II-XII grossly intact. Motor is 5/5 in bilateral upper and lower extremities proximal to distal. No sensory deficits. HEENT: Face is symmetric. Pupils are equal and reactive. Extraocular movements are intact. NECK: Supple. No JVD. No thyromegaly. No submental, submandibular, pre-/postauricular, occipital or supraclavicular lymphadenopathy. CHEST: Normal chest expansion. No Telemetry. LUNGS: Absence of any rales, rhonchi . Wheezing on auscultation CARDIOVASCULAR: Regular. S1 and S2 normal. No appreciable rubs, murmurs or gallops. ABDOMEN: Soft, nontender, and nondistended. There is no rebound, voluntary guarding, or rigidity. : Deferred. No [place]. EXTREMITIES: Non-edematous and not cyanotic. No clubbing. Good capillary refill. SKIN: No skin breakdown. Vital Signs (last 8hr) Date Time Temp Pulse Resp B/P (MAP) Pulse Ox O2 Delivery O2 Flow Rate FiO2 12/10/24 12:16 104 24 12/10/24 11:28 99.5 101 22 157/81 96 Room Air* 0 21 12/10/24 07:10 90 24 N/A Room Air 21 LABS: Laboratory: Test 12/10/24 13:33 12/10/24 10:32 12/10/24 00:55 12/10/24 00:48 Range/Units Whole Blood Glucose 135 H 70-110 MG/DL White Blood Count 7.3 4.8-10.8 K/uL Red Blood Count 4.36 4.00-5.50 MIL/uL Hemoglobin 12.2 12.0-16.0 g/dL Hematocrit 38.5 36-48 % Mean Corpuscular Volume 88.3 79-99 fL Mean Corpuscular Hemoglobin 28.0 27.0-33.0 pg Mean Corpuscular Hemoglobin Concent 31.7 L 32.0-36.0 g/dL Red Cell Distribution Width 14.5 11.0-15.5 % Platelet Count 164 130-400 K/uL Mean Platelet Volume 11.2 H 7.5-10.5 fL Nucleated Red Blood Cells 0.0 0.0-0.19 % Sodium Level 139 136-145 mmol/L Potassium Level 3.4 L 3.5-5.1 mmol/L Chloride Level 102 101-111 mmol/L Carbon Dioxide Level 28 21-32 mmol/L Blood Urea Nitrogen 12 7-18 mg/dL Creatinine 1.0 0.5-1.0 mg/dL Glomerular Filtration Rate Calc 55 >90 mL/min Random Glucose 117 H 70-105 mg/dL Hemoglobin A1c 6.2 H 4.0-6.0 % Estimated Average Glucose (eAG) 131 H 70-126 mg/dL Total Calcium 8.0 L 8.5-10.1 mg/dL Total Bilirubin 0.8 0.2-1.0 mg/dL Aspartate Amino Transf (AST/SGOT) 20 10-37 U/L Alanine Aminotransferase (ALT/SGPT) 15 12-78 U/L Alkaline Phosphatase 69 50-136 U/L Troponin I High Sensitivity 89 *H 4-50 ng/L Total Protein 6.9 6.0-8.3 g/dL Albumin 3.5 3.5-5.0 g/dL Thyroid Stimulating Hormone (TSH) 1.18 0.36-3.74 uIU/mL Blood Gas Specimen Type Arterial Arterial Blood pH 7.386 7.350-7.450 Arterial Blood Partial Pressure CO2 31 L 32-45 mmHg Arterial Blood Partial Pressure O2 64.2 L 83.0-108.0 mmHg Arterial Blood HCO3 17.9 L 21.0-28.0 mmol/L Arterial Blood Oxygen Saturation 91.5 L 94.0-98.0 % Arterial Blood Base Excess -6.0 L -2.0-3.0 mmol/L Hemoglobin (Blood Gas) 12.2 12.0-16.0 g/dL Sodium (Blood Gas) 134 L 136-145 MMOL/L Bedside Potassium (Blood Gas) 3.6 3.4-4.5 MMOL/L Bedside Chloride (Blood Gas) 102 98-107 MMOL/L Bedside Glucose (Blood Gas) 126 H 65-95 MG/DL Bedside Ionized Calcium (Blood Gas) 1.08 L 1.15-1.33 MMOL/L Bedside Lactic Acid (Blood Gas) 1.70 H 0.36-0.75 MMOL/L Blood Gas Temperature 37.0 35.5-37.0 CELSIUS Blood Gas Vent Mode ROOMAIR ROOM AIR FiO2 21.0 % Blood Gas Specimen Comment RB MANAGER CASH ANDERS CAST D-Dimer Quantitative (PE/DVT) 728 *H 0-500 ng/mL Lactic Acid Level 2.4 0.8-2.5 mmol/L B-Type Natriuretic Peptide 2100 H 0-100 pg/mL Test 12/09/24 21:45 12/09/24 20:10 Range/Units Urine Color YELLOW YELLOW Urine Appearance CLEAR CLEAR Urine pH 5.5 5.0-8.0 Urine Specific [place] 1.015 1.001-1.031 Urine Protein 50 H NEGATIVE mg/dL Urine Glucose (UA) NEGATIVE NEGATIVE mg/dL Urine Ketones 5 H NEGATIVE mg/dL Urine Occult Blood MODERATE H NEGATIVE Urine Nitrate NEGATIVE NEGATIVE Urine Bilirubin NEGATIVE NEGATIVE mg/dL Urine Urobilinogen 0.2 0.2-1.0 mg/dL Urine Leukocyte Esterase 25 H NEGATIVE Steven/uL Urine RBC 6-10 H 0-1 /HPF Urine WBC 2-5 H 0-1 /HPF Urine Squamous Epithelial Cells MOD 0-2 /HPF Urine Bacteria RARE None Seen /HPF Urine Opiates Screen NEGATIVE NEGATIVE Urine Barbiturates Screen NEGATIVE NEGATIVE Urine Phencyclidine Screen NEGATIVE NEGATIVE Urine Amphetamines Screen NEGATIVE NEGATIVE Urine Benzodiazepines Screen NEGATIVE NEGATIVE Urine Cocaine Screen NEGATIVE NEGATIVE Urine Marijuana (THC) Screen NEGATIVE NEGATIVE Immature Granulocyte % (Auto) 0.4 0-1 % Neutrophils (%) (Auto) 75.0 40.0-77.0 % Lymphocytes (%) (Auto) 17.9 L 21.0-51.0 % Monocytes (%) (Auto) 6.2 3.0-13.0 % Eosinophils (%) (Auto) 0.1 0.0-8.0 % Basophils (%) (Auto) 0.4 0.0-5.0 % Neutrophils # (Auto) 6.3 1.8-7.7 K/uL Lymphocytes # (Auto) 1.5 1.0-4.8 K/uL Monocytes # (Auto) 0.5 0.1-1.0 K/uL Eosinophils # (Auto) 0.01 0.00-0.70 K/uL Basophils # (Auto) 0.03 0.00-0.20 K/uL Absolute Immature Granulocyte (auto 0.03 0-1 K/uL Ammonia < 10 L 11-32 umol/L Influenza Type A Antigen Negative For Type A NEGATIVE Influenza Type B Antigen Negative For Type B NEGATIVE SARS-CoV-2, RNA, NAAT NEGATIVE SARS CoV-2 NEGATIVE Current Medications Medications (Trade) Dose Ordered Sig/Artie Route PRN Reason Start Time Stop Time Status Last Admin Dose Admin Acetaminophen (TYLenol 325MG TAB) 650 mg Q6H PRN PO FEVER/MILD PAIN LEVEL 1-3 12/10/24 02:00 01/09/25 01:59 12/10/24 15:07 650 MG Acetaminophen (TYLenol 650MG SUPPOSITORY) 650 mg Q6H PRN RC FEVER / MILD PAIN 1-3 IF NPO 12/10/24 02:00 01/09/25 01:59 Albuterol Sulfate (Proventil 0.083% 2.5mg/3ml) 2.5 mg Q6H PRN IH SHORTNESS OF BREATH 12/10/24 09:00 01/09/25 08:59 12/10/24 12:14 2.5 MG Benzonatate (Tessalon 100mg Caps) 200 mg ONCE STAT PO 12/09/24 21:08 12/09/24 21:10 DC 12/09/24 21:17 200 MG Budesonide (Pulmicort 0.5 Mg/2ml) 0.5 mg BIDRESP IH 12/10/24 09:00 12/10/24 09:22 DC Budesonide (Pulmicort 0.5 Mg/2ml) 0.5 mg BIDRESP IH 12/10/24 18:00 01/09/25 17:59 Ceftriaxone Sodium (Rocephin 2gm Inj) 2 gm DAILY08 IVPB 12/10/24 08:00 12/20/24 07:59 12/10/24 11:16 2 GM Docusate Sodium (COLace 100MG CAP) 100 mg BID PRN PO CONSTIPATION 12/10/24 02:00 01/09/25 01:59 Doxycycline Hyclate 250 ml @ 125 mls/hr Q12H IV 12/10/24 02:00 12/20/24 01:59 12/10/24 13:31 125 MLS/HR Furosemide (LASix 40MG VIAL) 40 mg Q12H IV 12/10/24 09:00 01/09/25 08:59 12/10/24 11:16 40 MG Guaifenesin (RobiTUSSin SUGAR-FREE 100 MG/ 5 ML UDCUP) 400 mg Q4HPRN PRN PO COUGH/COLD SYMPTOMS 12/10/24 09:00 01/09/25 08:59 12/10/24 15:08 400 MG Hydralazine HCl (APRESOLine 20MG INJ) 10 mg Q6H PRN IV SBP GREATER THAN 180 12/10/24 02:00 01/09/25 01:59 Insulin Human Regular (humuLIN R 100 UNIT/ML 3ML) INSULIN SLIDING SCAL... ACHS SQ 12/10/24 07:30 01/09/25 07:29 Ipratropium [place] (AtrovENT UD) 0.5 mg Q6H IH 12/10/24 09:00 12/10/24 09:22 DC Ipratropium [place] (AtrovENT UD) 0.5 mg [id number] IH 12/10/24 12:00 01/09/25 08:59 12/10/24 12:14 0.5 MG Lactulose (Constulose 20gm/ 30ml Udcup) 20 gm Q6H PRN PO CONSTIPATION 12/10/24 02:00 01/09/25 01:59 Ondansetron HCl (zoFRAN 4MG INJ) 4 mg Q6H PRN IVP NAUSEA/VOMITING 12/10/24 02:00 01/09/25 01:59 Pantoprazole Sodium (PROTonix 40MG TAB) 40 mg DAILY PO 12/10/24 09:00 01/09/25 08:59 12/10/24 11:16 40 MG Sodium Chloride 1,000 ml @ 1,000 mls/hr Q1H IV 12/09/24 20:30 12/09/24 22:30 DC 12/09/24 21:39 1,000 MLS/HR Sodium Chloride 1,000 ml @ 1,000 mls/hr Q1H STAT IV 12/09/24 20:00 12/09/24 20:06 DC Temazepam (restORIL 15 MG CAP) 15 mg HS PRN PO INSOMNIA/SLEEP 12/10/24 02:00 01/09/25 01:59 DIAGNOSTICS / RADIOLOGY: [ ] ASSESSMENT: Acute hypoxemic respiratory failure, POA CHF with acute exacerbation, POA, BNP 2100 Acute sepsis without septic shock (tachycardia, tachypnea, fever, lactic acidosis) Elevated D-dimer, rule out PE and DVT Persistent acute cough Acute complicated cystitis, POA Acute metabolic encephalopathy, POA Dehydration Acute on chronic kidney disease stage 3b, GFR 44 Uncontrolled Diabetes mellitus with hyperglycemia POA GERD Pulmonary fibrotic changes upper lobes infiltrate per chest CT Lactic acidosis Elevated troponin PLAN: - continuous telemetry monitoring -Monitor respiratory status closely. -Continue oxygen therapy as needed. Titrate oxygen prn to keep Spo2>/+=92%. -Pulmicort & Atrovent scheduled. -Albuterol PRN. -RT to provide IS and education on use. -Robitussin DM as needed cough. -Solu-Medrol IV daily. -Continue antibiotic therapy: Doxycycline IV and Rocephin IV -Trend troponin and EKG. -Fluid restrictions a 1200 mL. -strict I&Os. -daily weights. -Tylenol as needed fever/ pain. -Glucometer checks AC & HS needed with insulin regular sliding scale coverage as needed. -Blood pressure checks every 4 hours and as needed. -Reconcile home medications once available. -labetalol IV as needed systolic blood pressure greater than 160 -AM labs: monitor renal and liver function, monitor electrolytes and replace PRN -GI and DVT prophylaxis -Additional plan and assessment are listed below. Home medications reconciled by MANAGER CASH 12/10/2024 Venous Doppler negative for DVT 2D echo pending V/Q scan pending Chest x-ray negative Head CT negative Chest CT pulmonary fibrotic changes bilateral upper lobe mild superimposed infiltrate. GERD Venous Doppler negative for DVT ATTESTATION BY PHYSICIAN I have seen and examined the patient. I reviewed the documentation, medical decision making, and treatment plan as noted by the mid-level provider above. I agree with the findings and plan of care. RHONDA VU MD, KATARZYNA B W[employer] SPECIALIST December 10, 2024 15:19
--- NOTE | 2024-12-10 15:47 | NUR ---
PT PLACED ON 2L VIA N/C D/T SATS OF 89% WHILE SLEEPING. NO ACUTE DISTRESS NOTED DURING THIS TIME. NO RETRACTIONS NOR USE OF ACCESSORY MUSCLES NOTED.
--- NOTE | 2024-12-10 15:57 | HMCIMG ---
Exam Type: NM PULMONARY/LUNG VENT/PERF VQ Clinical Information: elevated DDIMER, hypoxemia Comparison: None Findings: Anterior and posterior pulmonary ventilation scan was performed during and following inhalation of 4.5 mCi of xenon-133 gas and pulmonary perfusion images were performed following intravenous injection of 5 mCi of 99m Tc-labeled MAA. Ventilation: homogeneous distribution of the xenon gas in both lungs during the single breath and equilibrium phases. Symmetrical clearance of the xenon gas demonstrated in the wash out phase. No evidence of air trapping. Perfusion: homogeneous distribution of the radiolabeled particles in both lungs with normal hilar and cardiac attenuation defect. No wedge shaped or focal perfusion defects are seen. Impression: No evidence of pulmonary embolism.
--- NOTE | 2024-12-10 16:03 | NUR ---
DR VU WAS SENT INFORMATION ON PTS ELEVATED TROP LEVELS. HE RETURNED CALL AND ORDERS RECEIVED.
--- NOTE | 2024-12-10 17:08 | NUR ---
CARDIOLOGY CONSULT: JUST SPOKE TO DR Nino ROBISON
[2024-12-10] MEDS: PoTASSium chloRIDE 20MEQ ER 20 MEQ ERTAB PO ONE (17:20)
--- NOTE | 2024-12-10 17:27 | HMCSR ---
APPROVED REPORT EXAM: LIMITED Two-dimensional and M-mode echocardiogram with Doppler and color Doppler. Study Details: previous echo 10/11/24 INDICATION ICD: Fluid overload, elevated trop 2D Dimensions IVSd1.3 (0.7-1.1cm)LVEF(%)61.4 (>50%)LVED Vol(simp.)42.0 mL LVDd4.9 (3.8-5.6cm)FS(%)33 %LVES Vol(simp.)25.0 mL PWd0.9 (0.7-1.1cm)LA (2D)5.2 (1.6-4.0cm)LVEF(%, simp.)41 % IVSs1.6 cmAo Root(2D)2.9 (2.0-3.7cm) LVDs3.3 (2.5-4.0cm)IVC diam2.3 cm PWs1.4 cm Deformation Strain Apical 4-9.6 % Apical 2-7.6 % Apical 3-10.7 % Global Strain-9.3 % Tricuspid Valve RAP (EST) 15 [id number] mmHg Left Ventricle Left ventricular cavity size is normal. Moderate concentric left ventricular hypertrophy. LVEF is 40- 45%. Right Ventricle The right ventricle is normal size. Atria The left atrium is severely dilated. The right atrium is severely dilated. Aortic Valve Aortic valve is trileaflet, sclerotic mildly thickened and opens well. Mild aortic regurgitation. The re is no aortic valvular stenosis. Mitral Valve The mitral valve is mildly thickened and opens well. Posterior annular calcification noted. There is moderate mitral valve regurgitation noted. There is no mitral valve stenosis. Tricuspid Valve The tricuspid valve is normal in structure. There is moderate tricuspid valve regurgitation noted. Pulmonic Valve The pulmonary valve is normal in structure. There is trivial pulmonic valvular regurgitation. Great Vessels The aortic root is normal in size. IVC is dilated and collapses <50% with inspiration. Pericardium No pericardial effusion. Other Information Quality : Limited/Follow-up Conclusion Left ventricular cavity size is normal. Moderate concentric left ventricular hypertrophy. LVEF is 40-45%. The right ventricle is normal size. The left atrium is severely dilated. The right atrium is severely dilated. Aortic valve is trileaflet, sclerotic mildly thickened and opens well. Mild aortic regurgitation. There is moderate mitral valve regurgitation noted. There is moderate tricuspid valve regurgitation noted. IVC is dilated and collapses <50% with inspiration. No pericardial effusion.
--- NOTE | 2024-12-10 17:43 | NUR ---
PT TRAY OFFERED AND SET UP FOR PT. FOOD CUT, BREAD BUTTERED AND SUGAR IN TEA
[2024-12-10] MEDS: BUDESONIDE 0.5 MG/2 ML INH IH SCH (18:44)
--- NOTE | 2024-12-10 19:17 | NUR ---
REPORT ENDORSED TO CHRISTIAN JONES
--- NOTE | 2024-12-10 19:17 | NUR ---
MEDICATION RECONCILIATION: PT NO MEDS W/PT.
[2024-12-10] MEDS: atorVAStatin 20 MG TABLET PO SCH (20:34)
[2024-12-10] MEDS: metOPROLol sucCINATE 50 MG TAB.SR.24H PO SCH (20:34)
[2024-12-10] MEDS: ENOXAPARIN SODIUM 40 MG/0.4 ML SYRINGE SQ SCH (21:40)
[2024-12-11] VITALS (17 sets, daily range): BP systolic 110–138; BP diastolic 60–89; PULSE 91–121; RESP 17–24; TEMP 98.1–98.8; O2SAT 95–99
--- NOTE | 2024-12-11 03:10 | NUR ---
Nursing Note Spoke with Adri Barrera NP. Informed her about call from tele of pts 10 beats V tack with AFib in the 130s at 0244. Order to make sure pt's home metoprolol is started (which is already started), Lactation Consultant is consulted in am if not already consult (already consulted and called per note in ER), and to order the magnesium protocol and potassium 1/2 protocol. No other orders at this time.
[2024-12-11] MEDS ORDERED: PoTASSium chl 10% ELIXIR 20MEQ 20 MEQ/15 ML UDCUP PO PRN ×2 (03:30→08:00)
[2024-12-11] MEDS ORDERED: PoTASSium chloRIDE 20MEQ ER 20 MEQ ERTAB PO PRN ×2 (03:30→08:00)
[2024-12-11] MEDS ORDERED: PoTASSium chloRIDE 10MEQ/100ML 100 ML IV PRN ×3 (03:30→08:00)
[2024-12-11 05:47] LABS: BASOPHILS # (AUTO) 0.02 K/uL (0.00-0.20); BASOPHILS % (AUTO) 0.2 % (0.0-5.0); EOSINOPHILS # (AUTO) 0.05 K/uL (0.00-0.70); EOSINOPHILS % (AUTO) 0.6 % (0.0-8.0); HEMATOCRIT 37.9 % (36-48); IMMATURE GRANULOCYTE ABSOLUTE 0.03 K/uL (0-1); LYMPHOCYTES # (AUTO) 1.6 K/uL (1.0-4.8); LYMPHOCYTES % (AUTO) 19.1 % (21.0-51.0); MEAN CORPUSCULAR HEMOGLOBIN 28.1 pg (27.0-33.0); MEAN CORPUSCULAR HGB CONC 31.9 g/dL (32.0-36.0); MEAN CORPUSCULAR VOLUME 87.9 fL (79-99); MONOCYTES # (AUTO) 0.8 K/uL (0.1-1.0); MONOCYTES % (AUTO) 9.9 % (3.0-13.0); NEUTROPHILS # (AUTO) 5.9 K/uL (1.8-7.7); NEUTROPHILS % (AUTO) 69.8 % (40.0-77.0); PLATELET COUNT (AUTO) 151 K/uL (130-400); RED BLOOD CELL COUNT(AUTO) 4.31 MIL/uL (4.00-5.50); RED CELL DISTRIBUTION WIDTH 14.5 % (11.0-15.5); WHITE BLOOD COUNT (AUTO) 8.5 K/uL (4.8-10.8)
[2024-12-11] MEDS: levoTHYROxine 50 MCG TABLET PO SCH (06:08)
[2024-12-11 06:52] LABS: ALBUMIN 3.3 g/dL (3.5-5.0); BILIRUBIN,TOTAL 0.7 mg/dL (0.2-1.0); CREATININE 1.1 mg/dL (0.5-1.0); MAGNESIUM 1.8 mg/dL (1.80-2.40); PHOSPHORUS 2.3 mg/dL (2.5-4.9); POTASSIUM 3.2 mmol/L (3.5-5.1); TOTAL PROTEIN, SERUM 6.6 g/dL (6.0-8.3)
[2024-12-11] MEDS ORDERED: MAGNESIUM 2GM PREMIX 50ML 50 ML IV PRN (08:00)
[2024-12-11] MEDS ORDERED: DEXTROSE 50%-WATER 50 ML DISP.SYRIN IV PRN (08:00)
[2024-12-11] MEDS ORDERED: GLUCAGON 1MG KIT 1 MG ML IM PRN (08:00)
--- NOTE | 2024-12-11 08:02 | PN ---
[facility] PROGRESS NOTE Date of Service: December 11, 2024 Time of Service: 07:[address] Vu SUBJECTIVE: [ 12/09/24 Ms. Omer is a 84-year-old female with a history of AFib on Eliquis and hypertension who presented to [facility] ED for evaluation of cough and confusion x2 days. The patient was in brought by son for concern of a the cough developing to pneumonia. As per son the last time the patient had a cough she developed pneumonia. The son also reported the patient been recently getting "forgetful but today has gotten worse. He states that the patient had a bowel movement in her under worse which is unusual for her. He stated the BM was formed, the patient did not have diarrhea. ED provider request patient be admitted with the diagnosis of altered mental status, pneumonitis, and elevated troponin. I assessed the patient at bedside in room hallway B. the patient's breathing was even, unlabored, in no distress. She had some episodes of cough. Patient is not oriented to day nor reason for the visit. She reports that she is here because her "legs had a seizure". The patient denied chest pain, shortness of breath, any other pain, problem or concern. I informed the patient and son of labs, diagnostics, and plan of care. They verbalized understanding and are in agreement with the plan. Plan and assessment as listed below. 12/10/24 patient was seen by nurse practitioner physician during rounding in emergency department in room ED 9. Nurse practitioner reviewed all the radiology chest x-ray was negative head CT negative chest CT showed pulmonary fibrotic changes bilateral upper lobe via superimposed infiltrate. GERD. Patient's D-dimer came back highly elevated. Venous Dopplers was negative for DVT. V/Q scan was already performed we are pending bleeding. 2D echo is pending. Patient's BNP is 2100. Patient continues on furosemide 40 mg IV push q.12 hours. Troponin 89 patient denies any chest pain, nausea, vomiting. Patient is wheezing on auscultation. At this moment we will continue monitoring patient a.m. labs 12/11/24 patient was seen by nurse practitioner and physician during rounding in room 310. 2D echo showed EF 40 to 45% left ventricular cavity size is normal. IVC is dilated and collapses less than 50% with inspiration. There is moderate mitral and tricuspid valve regurgitation. No pericardial effusion. V/Q scan was negative for PE. BNP 1510. Also at night RN guarded home from tele of the patient 10 beats V-tach with a AFib in 130 at 2:44 a.m.. ADMINISTRATIVE TECHNICIAN on-call was notify and patient's metoprolol was started. Lactation Coordinator was consulted. We are pending director financial services recommendations at this moment. Patient was also found to be in AFib RVR. RN contact director financial services via the phone and patient was placed on Cardizem drip. Patient will be transferred to PCCU. We will continue to monitor patient in the meantime. A.m. labs] REVIEW OF SYSTEMS 12-point ROS reviewed with patient. All pertinent positives mentioned above. Otherwise negative, noncontributory, non-pertinent. PHYSICAL EXAM GENERAL APPEARANCE: The patient is awake, alert, oriented to person, place, in no acute cardiopulmonary distress. NEUROLOGICAL: Cranial nerves II-XII grossly intact. Motor is 5/5 in bilateral upper and lower extremities proximal to distal. No sensory deficits. HEENT: Face is symmetric. Pupils are equal and reactive. Extraocular movements are intact. NECK: Supple. No JVD. No thyromegaly. No submental, submandibular, pre- /postauricular, occipital or supraclavicular lymphadenopathy. CHEST: Normal chest expansion. No Telemetry. LUNGS: Absence of any rales, rhonchi . Wheezing on auscultation CARDIOVASCULAR: Regular. S1 and S2 normal. No appreciable rubs, murmurs or gallops. ABDOMEN: Soft, nontender, and nondistended. There is no rebound, voluntary guarding, or rigidity. : Deferred. No [place]. EXTREMITIES: Non-edematous and not cyanotic. No clubbing. Good capillary refill. SKIN: No skin breakdown. Vital Signs (last 8hr) Date Time Temp Pulse Resp B/P (MAP) Pulse Ox O2 Delivery O2 Flow Rate FiO2 12/11/24 07:38 105 18 N/A Room Air 21 12/11/24 04:08 98.2 91 17 129/64 97 Room Air 12/11/24 00:25 95 Room Air* 0 21 LABS: Laboratory: Test 12/11/24 05:09 12/11/24 04:58 12/10/24 10:32 12/10/24 00:55 Range/Units Whole Blood Glucose 104 70-110 MG/DL White Blood Count 8.5 4.8-10.8 K/uL Red Blood Count 4.31 4.00-5.50 MIL/uL Hemoglobin 12.1 12.0-16.0 g/dL Hematocrit 37.9 36-48 % Mean Corpuscular Volume 87.9 79-99 fL Mean Corpuscular Hemoglobin 28.1 27.0-33.0 pg Mean Corpuscular Hemoglobin Concent 31.9 L 32.0-36.0 g/dL Red Cell Distribution Width 14.5 11.0-15.5 % Platelet Count 151 130-400 K/uL Mean Platelet Volume 11.5 H 7.5-10.5 fL Immature Granulocyte % (Auto) 0.4 0-1 % Neutrophils (%) (Auto) 69.8 40.0-77.0 % Lymphocytes (%) (Auto) 19.1 L 21.0-51.0 % Monocytes (%) (Auto) 9.9 3.0-13.0 % Eosinophils (%) (Auto) 0.6 0.0-8.0 % Basophils (%) (Auto) 0.2 0.0-5.0 % Neutrophils # (Auto) 5.9 1.8-7.7 K/uL Lymphocytes # (Auto) 1.6 1.0-4.8 K/uL Monocytes # (Auto) 0.8 0.1-1.0 K/uL Eosinophils # (Auto) 0.05 0.00-0.70 K/uL Basophils # (Auto) 0.02 0.00-0.20 K/uL Absolute Immature Granulocyte (auto 0.03 0-1 K/uL Nucleated Red Blood Cells 0.0 0.0-0.19 % Sodium Level 141 136-145 mmol/L Potassium Level 3.2 L 3.5-5.1 mmol/L Chloride Level 103 101-111 mmol/L Carbon Dioxide Level 29 21-32 mmol/L Blood Urea Nitrogen 15 7-18 mg/dL Creatinine 1.1 H 0.5-1.0 mg/dL Glomerular Filtration Rate Calc 49 >90 mL/min Random Glucose 98 70-105 mg/dL Total Calcium 8.2 L 8.5-10.1 mg/dL Phosphorus Level 2.3 L 2.5-4.9 mg/dL Magnesium Level 1.80 1.80-2.40 mg/dL Total Bilirubin 0.7 0.2-1.0 mg/dL Aspartate Amino Transf (AST/SGOT) 24 10-37 U/L Alanine Aminotransferase (ALT/SGPT) 14 12-78 U/L Alkaline Phosphatase 61 50-136 U/L Troponin I High Sensitivity 81 *H 4-50 ng/L B-Type Natriuretic Peptide 1510 H 0-100 pg/mL Total Protein 6.6 6.0-8.3 g/dL Albumin 3.3 L 3.5-5.0 g/dL Hemoglobin A1c 6.2 H 4.0-6.0 % Estimated Average Glucose (eAG) 131 H 70-126 mg/dL Thyroid Stimulating Hormone (TSH) 1.18 0.36-3.74 uIU/mL Blood Gas Specimen Type Arterial Arterial Blood pH 7.386 7.350-7.450 Arterial Blood Partial Pressure CO2 31 L 32-45 mmHg Arterial Blood Partial Pressure O2 64.2 L 83.0-108.0 mmHg Arterial Blood HCO3 17.9 L 21.0-28.0 mmol/L Arterial Blood Oxygen Saturation 91.5 L 94.0-98.0 % Arterial Blood Base Excess -6.0 L -2.0-3.0 mmol/L Hemoglobin (Blood Gas) 12.2 12.0-16.0 g/dL Sodium (Blood Gas) 134 L 136-145 MMOL/L Bedside Potassium (Blood Gas) 3.6 3.4-4.5 MMOL/L Bedside Chloride (Blood Gas) 102 98-107 MMOL/L Bedside Glucose (Blood Gas) 126 H 65-95 MG/DL Bedside Ionized Calcium (Blood Gas) 1.08 L 1.15-1.33 MMOL/L Bedside Lactic Acid (Blood Gas) 1.70 H 0.36-0.75 MMOL/L Blood Gas Temperature 37.0 35.5-37.0 CELSIUS Blood Gas Vent Mode ROOMAIR ROOM AIR FiO2 21.0 % Blood Gas Specimen Comment RB ADMINISTRATIVE TECHNICIAN ANDERS CAST Test 12/10/24 00:48 12/09/24 21:45 12/09/24 20:10 Range/Units D-Dimer Quantitative (PE/DVT) 728 *H 0-500 ng/mL Lactic Acid Level 2.4 0.8-2.5 mmol/L Urine Color YELLOW YELLOW Urine Appearance CLEAR CLEAR Urine pH 5.5 5.0-8.0 Urine Specific [place] 1.015 1.001-1.031 Urine Protein 50 H NEGATIVE mg/dL Urine Glucose (UA) NEGATIVE NEGATIVE mg/dL Urine Ketones 5 H NEGATIVE mg/dL Urine Occult Blood MODERATE H NEGATIVE Urine Nitrate NEGATIVE NEGATIVE Urine Bilirubin NEGATIVE NEGATIVE mg/dL Urine Urobilinogen 0.2 0.2-1.0 mg/dL Urine Leukocyte Esterase 25 H NEGATIVE Steven/uL Urine RBC 6-10 H 0-1 /HPF Urine WBC 2-5 H 0-1 /HPF Urine Squamous Epithelial Cells MOD 0-2 /HPF Urine Bacteria RARE None Seen /HPF Urine Opiates Screen NEGATIVE NEGATIVE Urine Barbiturates Screen NEGATIVE NEGATIVE Urine Phencyclidine Screen NEGATIVE NEGATIVE Urine Amphetamines Screen NEGATIVE NEGATIVE Urine Benzodiazepines Screen NEGATIVE NEGATIVE Urine Cocaine Screen NEGATIVE NEGATIVE Urine Marijuana (THC) Screen NEGATIVE NEGATIVE Ammonia < 10 L 11-32 umol/L Influenza Type A Antigen Negative For Type A NEGATIVE Influenza Type B Antigen Negative For Type B NEGATIVE SARS-CoV-2, RNA, NAAT NEGATIVE SARS CoV-2 NEGATIVE Current Medications Medications (Trade) Dose Ordered Sig/Artie Route PRN Reason Start Time Stop Time Status Last Admin Dose Admin Acetaminophen (TYLenol 325MG TAB) 650 mg Q6H PRN PO FEVER/MILD PAIN LEVEL 1-3 12/10/24 02:00 01/09/25 01:59 12/10/24 15:07 650 MG Acetaminophen (TYLenol 650MG SUPPOSITORY) 650 mg Q6H PRN RC FEVER / MILD PAIN 1-3 IF NPO 12/10/24 02:00 01/09/25 01:59 Albuterol Sulfate (Proventil 0.083% 2.5mg/3ml) 2.5 mg Q6H PRN IH SHORTNESS OF BREATH 12/10/24 09:00 01/09/25 08:59 12/10/24 23:00 2.5 MG Aspirin (Aspirin 81mg Ec Tab) 81 mg DAILY PO 12/11/24 09:00 01/10/25 08:59 Atorvastatin Calcium (LIPItor 20MG) 20 mg HS PO 12/10/24 21:00 01/09/25 20:59 12/10/24 20:34 20 MG Benzonatate (Tessalon 100mg Caps) 200 mg ONCE STAT PO 12/09/24 21:08 12/09/24 21:10 DC 12/09/24 21:17 200 MG Budesonide (Pulmicort 0.5 Mg/2ml) 0.5 mg BIDRESP IH 12/10/24 09:00 12/10/24 09:22 DC Budesonide (Pulmicort 0.5 Mg/2ml) 0.5 mg BIDRESP IH 12/10/24 18:00 01/09/25 17:59 12/11/24 07:36 0.5 MG Ceftriaxone Sodium (Rocephin 2gm Inj) 2 gm DAILY08 IVPB 12/10/24 08:00 12/20/24 07:59 12/10/24 11:16 2 GM Docusate Sodium (COLace 100MG CAP) 100 mg BID PRN PO CONSTIPATION 12/10/24 02:00 01/09/25 01:59 Doxycycline Hyclate 250 ml @ 125 mls/hr Q12H IV 12/10/24 02:00 12/20/24 01:59 12/11/24 01:00 125 MLS/HR Enoxaparin Sodium (Lovenox) 40 mg DAILY SQ 12/10/24 21:00 01/09/25 20:59 12/10/24 21:40 40 MG Furosemide (LASix 40MG VIAL) 40 mg Q12H IV 12/10/24 09:00 01/09/25 08:59 12/10/24 20:33 40 MG Guaifenesin (RobiTUSSin SUGAR-FREE 100 MG/ 5 ML UDCUP) 400 mg Q4HPRN PRN PO COUGH/COLD SYMPTOMS 12/10/24 09:00 01/09/25 08:59 12/10/24 15:08 400 MG Hydralazine HCl (APRESOLine 20MG INJ) 10 mg Q6H PRN IV SBP GREATER THAN 180 12/10/24 02:00 01/09/25 01:59 Insulin Human Regular (humuLIN R 100 UNIT/ML 3ML) INSULIN SLIDING SCAL... ACHS SQ 12/10/24 07:30 01/09/25 07:29 Ipratropium [place] (AtrovENT UD) 0.5 mg Q6H IH 12/10/24 09:00 12/10/24 09:22 DC Ipratropium [place] (AtrovENT UD) 0.5 mg [id number] IH 12/10/24 12:00 01/09/25 08:59 12/11/24 07:36 0.5 MG Lactulose (Constulose 20gm/ 30ml Udcup) 20 gm Q6H PRN PO CONSTIPATION 12/10/24 02:00 01/09/25 01:59 Levothyroxine Sodium (SYNTHroid 50MCG TAB) 50 mcg SYN PO 12/11/24 06:30 01/10/25 06:29 12/11/24 06:08 50 MCG Magnesium Sulfate 50 ml @ 0 mls/hr PROTOCOL PRN IV MAGNESIUM PROTOCOL 12/11/24 03:30 01/10/25 03:29 Metoprolol Succinate (TopROL XL) 100 mg BID PO 12/10/24 21:00 01/09/25 20:59 12/10/24 20:34 100 MG Ondansetron HCl (zoFRAN 4MG INJ) 4 mg Q6H PRN IVP NAUSEA/VOMITING 12/10/24 02:00 01/09/25 01:59 Pantoprazole Sodium (PROTonix 40MG TAB) 40 mg DAILY PO 12/10/24 09:00 01/09/25 08:59 12/10/24 11:16 40 MG Potassium Chloride 100 ml @ 100 mls/hr AD PRN IV POTASSIUM PROTOCOL 12/11/24 03:30 12/11/24 06:59 DC Potassium Chloride 100 ml @ 100 mls/hr AD PRN IV POTASSIUM PROTOCOL 12/11/24 03:30 01/10/25 03:29 Potassium Chloride (K-Dur 10meq Sr Tab) 10 meq AD PRN PO POTASSIUM PROTOCOL 12/11/24 07:30 01/10/25 03:29 Potassium Chloride (K-Dur/Klor-Con 20meq) 10 meq AD PRN PO POTASSIUM PROTOCOL 12/11/24 03:30 12/11/24 07:01 DC Potassium Chloride (KCl 10% Elixir 20meq/15ml) 10 meq AD PRN PO POTASSIUM PROTOCOL 12/11/24 03:30 01/10/25 03:29 Sodium Chloride 1,000 ml @ 1,000 mls/hr Q1H IV 12/09/24 20:30 12/09/24 22:30 DC 12/09/24 21:39 1,000 MLS/HR Sodium Chloride 1,000 ml @ 1,000 mls/hr Q1H STAT IV 12/09/24 20:00 12/09/24 20:06 DC Temazepam (restORIL 15 MG CAP) 15 mg HS PRN PO INSOMNIA/SLEEP 12/10/24 02:00 01/09/25 01:59 DIAGNOSTICS / RADIOLOGY: [ ] ASSESSMENT: Acute hypoxemic respiratory failure, POA New onset AFib RVR POA CHF systolic with acute exacerbation, POA, BNP 2100 Acute sepsis without septic shock (tachycardia, tachypnea, fever, lactic acidosis) Elevated D-dimer, rule out PE and DVT Persistent acute cough Acute complicated cystitis, POA Acute metabolic encephalopathy, POA Dehydration Acute on chronic kidney disease stage 3b, GFR 44 Uncontrolled Diabetes mellitus with hyperglycemia POA GERD Pulmonary fibrotic changes upper lobes infiltrate per chest CT Lactic acidosis Elevated troponin PLAN: -cardiology consultation pending continuous telemetry monitoring -Monitor respiratory status closely. -Continue oxygen therapy as needed. Titrate oxygen prn to keep Spo2>/+=92%. -Pulmicort & Atrovent scheduled. -Albuterol PRN. -RT to provide IS and education on use. -Robitussin DM as needed cough. -Solu-Medrol IV daily. -Continue antibiotic therapy: Doxycycline IV and Rocephin IV -Fluid restrictions a 1200 mL. -strict I&Os. -daily weights. -Tylenol as needed fever/ pain. -Glucometer checks AC & HS needed with insulin regular sliding scale coverage as needed. -Blood pressure checks every 4 hours and as needed. -Reconcile home medications once available. -labetalol IV as needed systolic blood pressure greater than 160 -AM labs: monitor renal and liver function, monitor electrolytes and replace PRN -GI and DVT prophylaxis -Additional plan and assessment are listed below. Home medications reconciled by ADMINISTRATIVE TECHNICIAN 12/10/2024 Venous Doppler negative for DVT 2D echo EF 40 to 45% V/Q scan negative Chest x-ray negative Head CT negative Chest CT pulmonary fibrotic changes bilateral upper lobe mild superimposed infiltrate. GERD Venous Doppler negative for DVT Patient receive two doses of 40 mEq of potassium Lactic acid labs to be repeated Repeat troponins New onset AFib RVR patient was placed on Cardizem drip . Patient transferred to PCCU ATTESTATION BY PHYSICIAN I have seen and examined the patient. I reviewed the documentation, medical decision making, and treatment plan as noted by the mid-level provider above. I agree with the findings and plan of care. RHONDA VU MD, KATARZYNA B CABLE MAKER December 11, 2024 08:02
--- NOTE | 2024-12-11 08:30 | NUR ---
nurse note patient alert and oriented x3-4 this morning, denies pain, other symptoms at this time, providers notified regarding patient heart rate, per telemetry patient was in afib RVR, rates ranging from 120-150, Dr. Mirella Sandoval happened to be at the bedside and was made aware. Per Dr. Sandoval patient was to be given po metoprolol as scheduled and be started on amiodarone. patient's highest heart rate 180, denies chest pain or other symptoms, blood pressure/oxygen stable on room air. Transferring to PCCU
[2024-12-11] MEDS: ASPIRIN 81 MG EC TAB PO SCH (08:44)
[2024-12-11] MEDS: PoTASSium chloRIDE 20MEQ ER 20 MEQ ERTAB PO ONE ×2 (08:44→11:29)
[2024-12-11] MEDS: APIXaban 2.5 MG TABLET PO SCH (08:44)
--- NOTE | 2024-12-11 09:09 | CONS ---
[facility] CARDIOLOGY CONSULTATION NOTE Date Patient Seen: December 11, 2024 Time of Visit: 09:05 Reason for Consultation: [ elevated troponin] History of Present Illness: [Patient is a 84-year-old female with a history of AFib on Eliquis and hypertension who presented to [facility] for evaluation of cough and confusion x2 days. The patient was in brought by son for concern of a the cough developing to pneumonia. As per son the last time the patient had a cough she developed pneumonia. The son also reported the patient been recently getting "forgetful but today has gotten worse. He states that the patient had a bowel movement in her under worse which is unusual for her. He stated the BM was formed, the patient did not have diarrhea. On my exam, she is alert and oriented and reports cough is improved. She has been getting lasix 40 mg IV bid and CXR is clear now and Cr stable. Today, she developed a-fib RVR 140s, we are giving her a 150 mg bolus of amiodarone. ] Past Medical History: [ ] Past Surgical History: [ ] Family History: [ ] Social History: [ ] Habits: [Never] smoker. [Denies] alcohol consumption. [Denies] illicit drug use Home Meds: [ ] Current Meds: [ ] Review of Systems: CONST: [No fever, fatigue, or weight changes.] EYES: [No recent vision problems.] ENT: [No congestion, ear pain, or sore throat.] C/V: [No chest pain, palpitations, or edema.] RESP: [No cough, congestion, wheezing or shortness of breath.] GI: [No abdominal pain, nausea, vomiting, constipation, or diarrhea.] : [No incontinence or dysuria.] SKIN: [No rash.] NEURO: [No headache, focal numbness or weakness, dizziness, or seizures.] PSYCH: [No depression or anxiety.] HEME: [No abnormal bruising or bleeding.] LYMPH: [No swollen glands.] Physical Examination: GENERAL: [No acute distress.] HEAD: [Normal with no signs of head trauma.] EYES: [PERRLA, EOMI, conjunctiva and sclera normal.] ENT: [Hearing grossly intact, normal oropharynx.] NECK: [Supple without JVD. There is no tenderness, lymphadenopathy, or masses. No thyromegaly. Normal carotid upstrokes without bruits.] LUNGS: [Clear breath sounds bilaterally. There are right basilar rales one third of the way up the chest. No wheezes, or rhonchi.] HEART: [Normal rate and rhythm. Normal S1 and S2 without mumurs, gallop or rub.] VASC: [Peripheral pulses +2 bilaterally.] ABD: [Bowel sounds normal, soft, nontender, no masses, no organomegaly. No audible bruits.] : [Not examined] LYMPH: [No lymphadenopathy noted.] EXT: [No clubbing, cyanosis or edema.] SKIN: [No rashes or lesions noted.] NEURO: [Awake, alert, and oriented x3. No focal sensory or strength deficits noted.] Vital Signs (last 8hr) Date Time Temp Pulse Resp B/P (MAP) Pulse Ox O2 Delivery O2 Flow Rate FiO2 12/11/24 08:00 98.8 117 17 138/86 96 Room Air 12/11/24 07:38 105 18 N/A Room Air 21 12/11/24 07:36 105 20 12/11/24 04:08 98.2 91 17 129/64 97 Room Air Laboratory: [ ] Hematology Labs: Test 12/11/24 04:58 Range/Units White Blood Count 8.5 4.8-10.8 K/uL Red Blood Count 4.31 4.00-5.50 MIL/uL Hemoglobin 12.1 12.0-16.0 g/dL Hematocrit 37.9 36-48 % Mean Corpuscular Volume 87.9 79-99 fL Mean Corpuscular Hemoglobin 28.1 27.0-33.0 pg Mean Corpuscular Hemoglobin Concent 31.9 L 32.0-36.0 g/dL Red Cell Distribution Width 14.5 11.0-15.5 % Platelet Count 151 130-400 K/uL Mean Platelet Volume 11.5 H 7.5-10.5 fL Immature Granulocyte % (Auto) 0.4 0-1 % Neutrophils (%) (Auto) 69.8 40.0-77.0 % Lymphocytes (%) (Auto) 19.1 L 21.0-51.0 % Monocytes (%) (Auto) 9.9 3.0-13.0 % Eosinophils (%) (Auto) 0.6 0.0-8.0 % Basophils (%) (Auto) 0.2 0.0-5.0 % Neutrophils # (Auto) 5.9 1.8-7.7 K/uL Lymphocytes # (Auto) 1.6 1.0-4.8 K/uL Monocytes # (Auto) 0.8 0.1-1.0 K/uL Eosinophils # (Auto) 0.05 0.00-0.70 K/uL Basophils # (Auto) 0.02 0.00-0.20 K/uL Absolute Immature Granulocyte (auto 0.03 0-1 K/uL Nucleated Red Blood Cells 0.0 0.0-0.19 % Chemistry Labs: Test 12/11/24 07:17 12/11/24 05:09 12/11/24 04:58 12/10/24 10:32 Range/Units Lactic Acid Level 1.8 0.8-2.5 mmol/L Whole Blood Glucose 104 70-110 MG/DL Sodium Level 141 136-145 mmol/L Potassium Level 3.2 L 3.5-5.1 mmol/L Chloride Level 103 101-111 mmol/L Carbon Dioxide Level 29 21-32 mmol/L Blood Urea Nitrogen 15 7-18 mg/dL Creatinine 1.1 H 0.5-1.0 mg/dL Glomerular Filtration Rate Calc 49 >90 mL/min Random Glucose 98 70-105 mg/dL Total Calcium 8.2 L 8.5-10.1 mg/dL Phosphorus Level 2.3 L 2.5-4.9 mg/dL Magnesium Level 1.80 1.80-2.40 mg/dL Total Bilirubin 0.7 0.2-1.0 mg/dL Aspartate Amino Transf (AST/SGOT) 24 10-37 U/L Alanine Aminotransferase (ALT/SGPT) 14 12-78 U/L Alkaline Phosphatase 61 50-136 U/L Troponin I High Sensitivity 81 *H 4-50 ng/L B-Type Natriuretic Peptide 1510 H 0-100 pg/mL Total Protein 6.6 6.0-8.3 g/dL Albumin 3.3 L 3.5-5.0 g/dL Hemoglobin A1c 6.2 H 4.0-6.0 % Estimated Average Glucose (eAG) 131 H 70-126 mg/dL Thyroid Stimulating Hormone (TSH) 1.18 0.36-3.74 uIU/mL Test 12/09/24 20:10 Range/Units Ammonia < 10 L 11-32 umol/L Coagulation Labs: Test 12/10/24 00:48 Range/Units D-Dimer Quantitative (PE/DVT) 728 *H 0-500 ng/mL Diagnostics / Radiology: [Copy/Paste Echos/Imaging Report here] Assessment: [Acute hypoxemic respiratory failure, POA CHF with acute exacerbation, POA, BNP 2100 Acute sepsis without septic shock (tachycardia, tachypnea, fever, lactic acidosis) Elevated D-dimer, rule out PE and DVT Persistent acute cough Acute complicated cystitis, POA Acute metabolic encephalopathy, POA Dehydration Acute on chronic kidney disease stage 3b, GFR 44 Diabetes mellitus with hyperglycemia Lactic acidosis Elevated troponin ] Plan: [#Elevated trop -no need to trend it downtrended to 81 -Echo with LVEF 40-45%, mod MR, mod TR -ordered lexiscan -denies chest pain #Heart failure exacerbation -lasix 40 mg IV bid, change to po tomorrow -Cr stable at 1.1 #A-fib RVR -amio 150 mg bolus -eliquis 2.5 mg bid -metop succ 100 mg bid ] RYAN ROBISON MD December 11, 2024 09:09
--- NOTE | 2024-12-11 09:26 | NUR ---
TRANSFER FROM [facility] RECEIVED PATIENT FROM 3RD FLOOR FOR AFIB RVR 120 - 130s. PATIENT IS TO RECEIVE AMIODARONE BOLUS PER DR Royal ROBISON. NO MAINTENANCE DRIP, JUST A BOLUS. STARTED NEW PIV 20G TO RIGHT HAND. Addendum: 12/11/24 at 1354 by JOURDAN GANDARA RN RN 0935 PM ELECTRICAL ENGINEERING TECHNICIAN IS HERE AT THIS BEDSIDE TO ADMINISTER MEDICATION FOR A LEXISCAN, BUT PATIENT STATES SHE ATE BREAKFAST AND DRANK SOME COFFEE. TECH ABORTED PLANS AND RESCHEDULED LEXISCAN FOR TOMORROW MORNING.
--- NOTE | 2024-12-11 09:49 | NUR ---
NM LEXISCAN; PT NOT NPO; PT DRANKED COFFEE AND ATE OATMEAL. EXAM R/S FOR 12/12 AM. TANISHA SOLIMAN IS AWARE
--- NOTE | 2024-12-11 10:06 | HMCIMG ---
Exam Type: CHEST 1VW Clinical Information: chf Comparison: None Findings: The lungs are clear of infiltrates. The heart is normal in size. The bony and soft tissue structures of the chest are unremarkable. Impression: Clear lungs.
--- NOTE | 2024-12-11 10:34 | NUR ---
AFIB RVR DR Royal ROBISON MADE AWARE OF PT BEING IN AFIB RVR W/ HR 120-130's EVEN AFTER AMIO BOLUS ADMINISTERED. ASKED TO SEE IF MD WANTED TO START THE PROTOCOL / MAINTENANCE DRIP, BUT NO TELEPHONE ORDERS GIVEN / RECEIVED.
[2024-12-11] MEDS: AMIOdarone 150MG VIAL 150 MG in DEXTROSE 5%-WATER 100 ML IV SCH (10:39)
--- NOTE | 2024-12-11 10:45 | NUR ---
Order received, patient transferred to ICU due to A Fib with RVR in the 120-130's. Also noted with high D dimer. PT team to follow.
[2024-12-11] MEDS ORDERED: INSULIN humuLIN R 100 UNIT/ML 3ML SQ SCH (11:30)
--- NOTE | 2024-12-11 13:47 | NUR ---
LOST CELL PHONE PLACED CALL TO SECURITY REGARDING PATIENT STATING SHE CANNOT FIND HER CELL PHONE. PER SECURITY, NOBODY HAS TURNED IN ANY LOST PHONES.
--- NOTE | 2024-12-11 16:15 | NUR ---
BEDSIDE SWALLOW EVAL COMPLETED. No s/s of aspiration. Recommend regular solids, thin liquids and pills whole with liquids as tolerated. Compensatory strategies: 1. sit upright during oral intake GAS SYSTEMS WORKER reviewed results and recommendations with patient and nurse Traci. No family present at time of eval. GAS SYSTEMS WORKER educated patient on risks and consequences of aspiration. Speech therapy not warranted. All questions answered. Addendum: 12/11/[address] RITO HOLLEY Amended: Links added.
[2024-12-11] MEDS: metoPROLOL tartRATE 1 MG/ML 5ML VIAL IV ONE (23:36)
[2024-12-12] VITALS (52 sets, daily range): BP systolic 117–131; BP diastolic 68–110; PULSE 90–165; RESP 16–29; TEMP 98.5–98.9; O2SAT 96–99
[2024-12-12] MEDS: PoTASSium chloRIDE 10MEQ SR 10 MEQ/TAB TAB.SR.24H PO PRN (03:07)
[2024-12-12 04:54] LABS: BASOPHILS # (AUTO) 0.03 K/uL (0.00-0.20); BASOPHILS % (AUTO) 0.3 % (0.0-5.0); EOSINOPHILS # (AUTO) 0.27 K/uL (0.00-0.70); HEMATOCRIT 37.4 % (36-48); IMMATURE GRANULOCYTE ABSOLUTE 0.03 K/uL (0-1); LYMPHOCYTES # (AUTO) 2.4 K/uL (1.0-4.8); LYMPHOCYTES % (AUTO) 26.1 % (21.0-51.0); MEAN CORPUSCULAR HEMOGLOBIN 28.2 pg (27.0-33.0); MEAN CORPUSCULAR HGB CONC 32.1 g/dL (32.0-36.0); MONOCYTES % (AUTO) 11.2 % (3.0-13.0); NEUTROPHILS # (AUTO) 5.3 K/uL (1.8-7.7); NEUTROPHILS % (AUTO) 59.1 % (40.0-77.0); PLATELET COUNT (AUTO) 151 K/uL (130-400); RED BLOOD CELL COUNT(AUTO) 4.25 MIL/uL (4.00-5.50); RED CELL DISTRIBUTION WIDTH 14.7 % (11.0-15.5)
[2024-12-12 05:20] LABS: ALBUMIN 3.2 g/dL (3.5-5.0); BILIRUBIN,TOTAL 0.5 mg/dL (0.2-1.0); CREATININE 1.2 mg/dL (0.5-1.0); MAGNESIUM 1.3 mg/dL (1.80-2.40); POTASSIUM 3.7 mmol/L (3.5-5.1); TOTAL PROTEIN, SERUM 6.5 g/dL (6.0-8.3)
[2024-12-12 05:42] LABS: BAND NEUTROPHILS % (MANUAL) 1 % (0-2); BASOPHILS % (MANUAL) 2 % (0-2); EOSINOPHILS % (MANUAL) 1 % (1-6); LYMPHOCYTES % (MANUAL) 18 % (22-44); MONOCYTES % (MANUAL) 10 % (2-9); SEGMENTED NEUTROPHILS % 68 % (40-70); TOTAL CELLS COUNTED 100
[2024-12-12 05:43] LABS: MAN.DIFF COMMENT-IMPRESSION MANUAL DIFFERENTIAL; WBC MORPHOLOGY REACTIVE LYMPHS 1+
[2024-12-12 05:44] LABS: PLATELET MORPHOLOGY COMMENT ADEQUATE
--- NOTE | 2024-12-12 09:02 | CONS ---
HPI: This is an 84-year-old female with longstanding persistent atypical atrial flutter and hypertension. She was admitted 12/10/2024 due to altered mental status and persistent cough. She was found to be in atypical atrial flutter with rapid ventricular response with ventricular rates up to the 180s. She was found to have elevated troponin with a trend as follows: 54 --> 89 --> 106 --> 81. She underwent echocardiogram 12/10/2024 which demonstrates an ejection fraction of 40-45% with severely dilated left atrium, mild aortic insufficiency, posterior annular calcification with moderate mitral valve regurgitation moderate tricuspid valve regurgitation. This is in contrast to an ejection fraction of 50-55% on echocardiogram 10/11/2024. She was started on IV amiodarone and metoprolol succinate 100 mg twice daily for rate control. She is currently in atrial flutter with ventricular rates in the 110s. EKGs going back to 2019 were reviewed. The last EKG shows sinus rhythm with 02/03/2020. Subsequent EKGs on 08/28/2023 and 10/10/2024 show atypical atrial flutter with ventricular rates 81-118 beats per minute. She underwent CT scan of the chest 12/10/2024 which shows interstitial pulmonary fibrotic changes with possible bilateral upper lobe mild superimposed infiltrates. CT of the head 12/09/2024 shows diffuse atrophy with no acute intracranial bleeding. White blood count 9.0, hemoglobin 12.0, hematocrit 37.4, platelets 151, creatinine 1.2, potassium 3.7, magnesium 1.30. Blood cultures x2 are negative after48 hours. She complains of a persistent cough that has been ongoing for at least one month. Otherwise he denies palpitations, shortness or breath, dizziness or weakness. Patient History: PAST MEDICAL HISTORY: As noted above. SOCIAL HISTORY: Noncontributory. SURGICAL HISTORY: Noncontributory. Allergies: Coded Allergies: No Known Drug Allergies (Verified Allergy, Unknown, 02/02/20) Vital Signs Vital Signs 12/12/24 12/12/24 12/12/24 12/12/24 00:00 04:00 07:44 07:45 Temp 98.4 Pulse 113 Resp 18 B/P (MAP) 131/68 Pulse Ox 94 O2 Delivery Room Air O2 Flow Rate 0 FiO2 21 Appearance: Well dev, well nourished Eyes: EOM Normal, Normal Conjuctivae/eyelid Ear/Nose/Mouth/Throat: Landmarks WNL Neck: Symmetric, trach midline Cardiovascular: No Edema, Abnormal (Irregular rhythm) Laboratory Tests Test 12/10/24 10:32 12/10/24 13:33 12/10/24 15:17 12/10/24 17:12 Range/Units White Blood Count 7.3 4.8-10.8 K/uL Red Blood Count 4.36 4.00-5.50 MIL/uL Hemoglobin 12.2 12.0-16.0 g/dL Hematocrit 38.5 36-48 % Mean Corpuscular Volume 88.3 79-99 fL Mean Corpuscular Hemoglobin 28.0 27.0-33.0 pg Mean Corpuscular Hemoglobin Concent 31.7 32.0-36.0 g/dL Red Cell Distribution Width 14.5 11.0-15.5 % Platelet Count 164 130-400 K/uL Mean Platelet Volume 11.2 7.5-10.5 fL Nucleated Red Blood Cells 0.0 0.0-0.19 % Sodium Level 139 136-145 mmol/L Potassium Level 3.4 3.5-5.1 mmol/L Chloride Level 102 101-111 mmol/L Carbon Dioxide Level 28 21-32 mmol/L Blood Urea Nitrogen 12 7-18 mg/dL Creatinine 1.0 0.5-1.0 mg/dL Glomerular Filtration Rate Calc 55 >90 mL/min Random Glucose 117 70-105 mg/dL Hemoglobin A1c 6.2 4.0-6.0 % Estimated Average Glucose (eAG) 131 70-126 mg/dL Total Calcium 8.0 8.5-10.1 mg/dL Total Bilirubin 0.8 0.2-1.0 mg/dL Aspartate Amino Transf (AST/SGOT) 20 10-37 U/L Alanine Aminotransferase (ALT/SGPT) 15 12-78 U/L Alkaline Phosphatase 69 50-136 U/L Troponin I High Sensitivity 89 106 4-50 ng/L Total Protein 6.9 6.0-8.3 g/dL Albumin 3.5 3.5-5.0 g/dL Thyroid Stimulating Hormone (TSH) 1.18 0.36-3.74 uIU/mL Whole Blood Glucose 135 124 70-110 MG/DL Test 12/10/24 21:21 12/11/24 04:58 12/11/24 05:09 12/11/24 07:17 Range/Units Whole Blood Glucose 128 104 70-110 MG/DL White Blood Count 8.5 4.8-10.8 K/uL Red Blood Count 4.31 4.00-5.50 MIL/uL Hemoglobin 12.1 12.0-16.0 g/dL Hematocrit 37.9 36-48 % Mean Corpuscular Volume 87.9 79-99 fL Mean Corpuscular Hemoglobin 28.1 27.0-33.0 pg Mean Corpuscular Hemoglobin Concent 31.9 32.0-36.0 g/dL Red Cell Distribution Width 14.5 11.0-15.5 % Platelet Count 151 130-400 K/uL Mean Platelet Volume 11.5 7.5-10.5 fL Immature Granulocyte % (Auto) 0.4 0-1 % Neutrophils (%) (Auto) 69.8 40.0-77.0 % Lymphocytes (%) (Auto) 19.1 21.0-51.0 % Monocytes (%) (Auto) 9.9 3.0-13.0 % Eosinophils (%) (Auto) 0.6 0.0-8.0 % Basophils (%) (Auto) 0.2 0.0-5.0 % Neutrophils # (Auto) 5.9 1.8-7.7 K/uL Lymphocytes # (Auto) 1.6 1.0-4.8 K/uL Monocytes # (Auto) 0.8 0.1-1.0 K/uL Eosinophils # (Auto) 0.05 0.00-0.70 K/uL Basophils # (Auto) 0.02 0.00-0.20 K/uL Absolute Immature Granulocyte (auto 0.03 0-1 K/uL Nucleated Red Blood Cells 0.0 0.0-0.19 % Sodium Level 141 136-145 mmol/L Potassium Level 3.2 3.5-5.1 mmol/L Chloride Level 103 101-111 mmol/L Carbon Dioxide Level 29 21-32 mmol/L Blood Urea Nitrogen 15 7-18 mg/dL Creatinine 1.1 0.5-1.0 mg/dL Glomerular Filtration Rate Calc 49 >90 mL/min Random Glucose 98 70-105 mg/dL Total Calcium 8.2 8.5-10.1 mg/dL Phosphorus Level 2.3 2.5-4.9 mg/dL Magnesium Level 1.80 1.80-2.40 mg/dL Total Bilirubin 0.7 0.2-1.0 mg/dL Aspartate Amino Transf (AST/SGOT) 24 10-37 U/L Alanine Aminotransferase (ALT/SGPT) 14 12-78 U/L Alkaline Phosphatase 61 50-136 U/L Troponin I High Sensitivity 81 4-50 ng/L B-Type Natriuretic Peptide 1510 0-100 pg/mL Total Protein 6.6 6.0-8.3 g/dL Albumin 3.3 3.5-5.0 g/dL Lactic Acid Level 1.8 0.8-2.5 mmol/L Test 12/11/24 11:20 12/11/24 15:59 12/11/24 21:17 12/12/24 04:34 Range/Units Whole Blood Glucose 128 115 129 70-110 MG/DL White Blood Count 9.0 4.8-10.8 K/uL Red Blood Count 4.25 4.00-5.50 MIL/uL Hemoglobin 12.0 12.0-16.0 g/dL Hematocrit 37.4 36-48 % Mean Corpuscular Volume 88.0 79-99 fL Mean Corpuscular Hemoglobin 28.2 27.0-33.0 pg Mean Corpuscular Hemoglobin Concent 32.1 32.0-36.0 g/dL Red Cell Distribution Width 14.7 11.0-15.5 % Platelet Count 151 130-400 K/uL Mean Platelet Volume 11.2 7.5-10.5 fL Immature Granulocyte % (Auto) 0.3 0-1 % Neutrophils (%) (Auto) 59.1 40.0-77.0 % Lymphocytes (%) (Auto) 26.1 21.0-51.0 % Monocytes (%) (Auto) 11.2 3.0-13.0 % Eosinophils (%) (Auto) 3.0 0.0-8.0 % Basophils (%) (Auto) 0.3 0.0-5.0 % Neutrophils # (Auto) 5.3 1.8-7.7 K/uL Lymphocytes # (Auto) 2.4 1.0-4.8 K/uL Monocytes # (Auto) 1.0 0.1-1.0 K/uL Eosinophils # (Auto) 0.27 0.00-0.70 K/uL Basophils # (Auto) 0.03 0.00-0.20 K/uL Absolute Immature Granulocyte (auto 0.03 0-1 K/uL Segmented Neutrophils % 68 40-70 % Band Neutrophils % 1 0-2 % Lymphocytes % (Manual) 18 22-44 % Monocytes % (Manual) 10 2-9 % Eosinophils % (Manual) 1 1-6 % Basophils % (Manual) 2 0-2 % Nucleated Red Blood Cells 0.0 0.0-0.19 % Differential Comment MANUAL DIFFERENTIAL White Cell Morphology Comment REACTIVE LYMPHS 1+ Platelet Morphology Comment ADEQUATE Red Blood Cell Morphology ANISO 1+ Sodium Level 141 136-145 mmol/L Potassium Level 3.7 3.5-5.1 mmol/L Chloride Level 104 101-111 mmol/L Carbon Dioxide Level 29 21-32 mmol/L Blood Urea Nitrogen 17 7-18 mg/dL Creatinine 1.2 0.5-1.0 mg/dL Glomerular Filtration Rate Calc 44 >90 mL/min Random Glucose 95 70-105 mg/dL Total Calcium 8.4 8.5-10.1 mg/dL Magnesium Level 1.30 1.80-2.40 mg/dL Total Bilirubin 0.5 0.2-1.0 mg/dL Aspartate Amino Transf (AST/SGOT) 24 10-37 U/L Alanine Aminotransferase (ALT/SGPT) 17 12-78 U/L Alkaline Phosphatase 62 50-136 U/L B-Type Natriuretic Peptide 555 0-100 pg/mL Total Protein 6.5 6.0-8.3 g/dL Albumin 3.2 3.5-5.0 g/dL ASSESSMENT: 1. Longstanding persistent atypical atrial flutter. 2. Newly diagnosed cardiomyopathy. PLAN: 1. She was longstanding persistent atypical atrial flutter with inadequate rate control. She was started on IV amiodarone and metoprolol succinate 100 mg twice daily for rate control. We will discontinue amiodarone and continue to focus on rate control. 2. 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 3. Continue metoprolol succinate 100 mg twice daily. 4. Continue Eliquis 2.5 mg twice daily. 5. She is pending Lexiscan today. PINA SONG December 12, 2024 09:02
--- NOTE | 2024-12-12 09:15 | EKG ---
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: naresh : 1940 Requested By: MANOHAR DIALLO Order Number: [id number] Reading MD: Kwasi Buck Measurements Intervals [place] Rate: 130 P: 0 [place]: 0 QRS: 61 QRSD: 77 T: 266 QT: 289 QTc: 426 Interpretive Statements Atrial fibrillation Ventricular premature complex LVH with secondary repolarization abnormality Anterior Q waves, possibly due to LVH ST depression, probably rate related Compared to ECG 12/10/2024 10:50:32 Ventricular premature complex(es) now present Left ventricular hypertrophy now present Q waves now present ST (T wave) deviation now present Possible ischemia no longer present Electronically Signed On 12-14-2024 12:27:05 CDT by Kwasi Buck Please click the below link to view image of tracing.
[2024-12-12] MEDS ORDERED: MAGNESIUM 2GM PREMIX 50ML 50 ML IV SCH (09:30)
[2024-12-12] MEDS: PoTASSium chloRIDE 20MEQ ER 20 MEQ ERTAB PO ONE (09:30)
[2024-12-12] MEDS: metoPROLOL tartRATE 1 MG/ML 5ML VIAL IV PRN (10:10)
[2024-12-12] MEDS: CEFTRIAXONE 2GM VIAL ONE (10:41)
[2024-12-12] MEDS ORDERED: PoTASSium chl 10% ELIXIR 20MEQ 20 MEQ/15 ML UDCUP PO PRN (11:00)
[2024-12-12] MEDS ORDERED: PoTASSium chloRIDE 20MEQ ER 20 MEQ ERTAB PO PRN (11:00)
[2024-12-12] MEDS ORDERED: PoTASSium chloRIDE 10MEQ/100ML 100 ML IV PRN (11:00)
[2024-12-12] MEDS: CEFTRIAXONE 2GM VIAL IVPB SCH (11:00)
[2024-12-12] MEDS ORDERED: MAGNESIUM 2GM PREMIX 50ML 50 ML IV PRN (11:00)
[2024-12-12] MEDS ORDERED: DEXTROSE 50%-WATER 50 ML DISP.SYRIN IV PRN (11:00)
[2024-12-12] MEDS ORDERED: GLUCAGON 1MG KIT 1 MG ML IM PRN (11:00)
--- NOTE | 2024-12-12 11:00 | NUR ---
PT follow up note: Patient remains on hold due to uncontrolled A fib with RVR. PT team to follow.
--- NOTE | 2024-12-12 11:04 | PN ---
[facility] PROGRESS NOTE Date of Service: December 12, 2024 Time of Service: 10:[address] Vu SUBJECTIVE: [ 12/09/24 Ms. Omer is a 84-year-old female with a history of AFib on Eliquis and hypertension who presented to [facility] for evaluation of cough and confusion x2 days. The patient was in brought by son for concern of a the cough developing to pneumonia. As per son the last time the patient had a cough she developed pneumonia. The son also reported the patient been recently getting "forgetful but today has gotten worse. He states that the patient had a bowel movement in her under worse which is unusual for her. He stated the BM was formed, the patient did not have diarrhea. ED provider request patient be admitted with the diagnosis of altered mental status, pneumonitis, and elevated troponin. I assessed the patient at bedside in room hallway B. the patient's breathing was even, unlabored, in no distress. She had some episodes of cough. Patient is not oriented to day nor reason for the visit. She reports that she is here because her "legs had a seizure". The patient denied chest pain, shortness of breath, any other pain, problem or concern. I informed the patient and son of labs, diagnostics, and plan of care. They verbalized understanding and are in agreement with the plan. Plan and assessment as listed below. 12/10/24 patient was seen by nurse practitioner physician during rounding in emergency department in room ED 9. Nurse practitioner reviewed all the radiology chest x-ray was negative head CT negative chest CT showed pulmonary fibrotic changes bilateral upper lobe via superimposed infiltrate. GERD. Patient's D-dimer came back highly elevated. Venous Dopplers was negative for DVT. V/Q scan was already performed we are pending bleeding. 2D echo is pending. Patient's BNP is 2100. Patient continues on furosemide 40 mg IV push q.12 hours. Troponin 89 patient denies any chest pain, nausea, vomiting. Patient is wheezing on auscultation. At this moment we will continue monitoring patient a.m. labs 12/11/24 patient was seen by nurse practitioner and physician during rounding in room 310. 2D echo showed EF 40 to 45% left ventricular cavity size is normal. IVC is dilated and collapses less than 50% with inspiration. There is moderate mitral and tricuspid valve regurgitation. No pericardial effusion. V/Q scan was negative for PE. BNP 1510. Also at night RN guarded home from tele of the patient 10 beats V-tach with a AFib in 130 at 2:44 a.m.. PAN HELPER on-call was notify and patient's metoprolol was started. Voice And Data Technician was consulted. We are pending veneer repairer machine recommendations at this moment. Patient was also found to be in AFib RVR. RN contact veneer repairer machine via the phone and patient was placed on Cardizem drip. Patient will be transferred to PCCU. We will continue to monitor patient in the meantime. A.m. labs 12/12/24 patient was seen by nurse practitioner and physician during rounding in 08/08/2016. Patient was just downgraded to PCCU. Amiodarone drip was discontinued as per Cardiology early a.m.. Patient continues to be AFib/a flu tter between 110 and 140s. V/Q scan was performed was negative for PE. 2D echo EF 40 to 45%. Venous Doppler negative for DVT. Patient also supposed to undergo Lexiscan but refused due to persistent cough at the moment. Robitussin was ordered. At this moment we are pending further recommendations from the veneer repairer machine. We will continue to monitor patient in the meantime. A.m. labs.] REVIEW OF SYSTEMS 12-point ROS reviewed with patient. All pertinent positives mentioned above. Otherwise negative, noncontributory, non-pertinent. PHYSICAL EXAM GENERAL APPEARANCE: The patient is awake, alert, oriented to person, place, in no acute cardiopulmonary distress. NEUROLOGICAL: Cranial nerves II-XII grossly intact. Motor is 5/5 in bilateral upper and lower extremities proximal to distal. No sensory deficits. HEENT: Face is symmetric. Pupils are equal and reactive. Extraocular movements are intact. NECK: Supple. No JVD. No thyromegaly. No submental, submandibular, pre- /postauricular, occipital or supraclavicular lymphadenopathy. CHEST: Normal chest expansion. No Telemetry. LUNGS: Absence of any rales, rhonchi . Wheezing on auscultation which has improved from the previous day CARDIOVASCULAR: Regular. S1 and S2 normal. No appreciable rubs, murmurs or gallops. ABDOMEN: Soft, nontender, and nondistended. There is no rebound, voluntary guarding, or rigidity. : Deferred. No [place]. EXTREMITIES: Non-edematous and not cyanotic. No clubbing. Good capillary refill. SKIN: No skin breakdown. Vital Signs (last 8hr) Date Time Temp Pulse Resp B/P (MAP) Pulse Ox O2 Delivery O2 Flow Rate FiO2 12/12/24 10:10 168 131/68 12/12/24 08:10 100 20 N/A Room Air 12/12/24 07:45 113 18 94 Room Air 12/12/24 07:44 110 17 131/68 94 Room Air 12/12/24 07:35 133 20 94 Room Air 12/12/24 07:25 122 16 95 Room Air 12/12/24 07:15 108 20 95 Room Air 12/12/24 07:05 116 20 91 Room Air 12/12/24 06:55 102 20 93 Room Air 12/12/24 06:45 92 17 95 Room Air 12/12/24 06:42 96 20 12/12/24 04:00 98.4 102 16 125/80 95 LABS: Laboratory: Test 12/12/24 04:34 12/11/24 21:17 12/11/24 07:17 12/11/24 04:58 Range/Units White Blood Count 9.0 4.8-10.8 K/uL Red Blood Count 4.25 4.00-5.50 MIL/uL Hemoglobin 12.0 12.0-16.0 g/dL Hematocrit 37.4 36-48 % Mean Corpuscular Volume 88.0 79-99 fL Mean Corpuscular Hemoglobin 28.2 27.0-33.0 pg Mean Corpuscular Hemoglobin Concent 32.1 32.0-36.0 g/dL Red Cell Distribution Width 14.7 11.0-15.5 % Platelet Count 151 130-400 K/uL Mean Platelet Volume 11.2 H 7.5-10.5 fL Immature Granulocyte % (Auto) 0.3 0-1 % Neutrophils (%) (Auto) 59.1 40.0-77.0 % Lymphocytes (%) (Auto) 26.1 21.0-51.0 % Monocytes (%) (Auto) 11.2 3.0-13.0 % Eosinophils (%) (Auto) 3.0 0.0-8.0 % Basophils (%) (Auto) 0.3 0.0-5.0 % Neutrophils # (Auto) 5.3 1.8-7.7 K/uL Lymphocytes # (Auto) 2.4 1.0-4.8 K/uL Monocytes # (Auto) 1.0 0.1-1.0 K/uL Eosinophils # (Auto) 0.27 0.00-0.70 K/uL Basophils # (Auto) 0.03 0.00-0.20 K/uL Absolute Immature Granulocyte (auto 0.03 0-1 K/uL Segmented Neutrophils % 68 40-70 % Band Neutrophils % 1 0-2 % Lymphocytes % (Manual) 18 L 22-44 % Monocytes % (Manual) 10 H 2-9 % Eosinophils % (Manual) 1 1-6 % Basophils % (Manual) 2 0-2 % Nucleated Red Blood Cells 0.0 0.0-0.19 % Differential Comment MANUAL DIFFERENTIAL White Cell Morphology Comment REACTIVE LYMPHS 1+ Platelet Morphology Comment ADEQUATE Red Blood Cell Morphology ANISO 1+ Sodium Level 141 136-145 mmol/L Potassium Level 3.7 3.5-5.1 mmol/L Chloride Level 104 101-111 mmol/L Carbon Dioxide Level 29 21-32 mmol/L Blood Urea Nitrogen 17 7-18 mg/dL Creatinine 1.2 H 0.5-1.0 mg/dL Glomerular Filtration Rate Calc 44 >90 mL/min Random Glucose 95 70-105 mg/dL Total Calcium 8.4 L 8.5-10.1 mg/dL Magnesium Level 1.30 L 1.80-2.40 mg/dL Total Bilirubin 0.5 # 0.2-1.0 mg/dL Aspartate Amino Transf (AST/SGOT) 24 10-37 U/L Alanine Aminotransferase (ALT/SGPT) 17 # 12-78 U/L Alkaline Phosphatase 62 50-136 U/L B-Type Natriuretic Peptide 555 H 0-100 pg/mL Total Protein 6.5 6.0-8.3 g/dL Albumin 3.2 L 3.5-5.0 g/dL Whole Blood Glucose 129 H 70-110 MG/DL Lactic Acid Level 1.8 0.8-2.5 mmol/L Phosphorus Level 2.3 L 2.5-4.9 mg/dL Troponin I High Sensitivity 81 *H 4-50 ng/L Current Medications Medications (Trade) Dose Ordered Sig/Artie Route PRN Reason Start Time Stop Time Status Last Admin Dose Admin Acetaminophen (TYLenol 325MG TAB) 650 mg Q6H PRN PO FEVER/MILD PAIN LEVEL 1-3 12/10/24 02:00 12/12/24 10:53 DC 12/10/24 15:07 650 MG Acetaminophen (TYLenol 650MG SUPPOSITORY) 650 mg Q6H PRN RC FEVER / MILD PAIN 1-3 IF NPO 12/10/24 02:00 12/12/24 10:53 DC Albuterol Sulfate (Proventil 0.083% 2.5mg/3ml) 2.5 mg Q6H PRN IH SHORTNESS OF BREATH 12/10/24 09:00 12/11/24 08:50 DC 12/10/24 23:00 2.5 MG Amiodarone HCl 150 mg/Dextrose 100 ml @ 0 mls/hr PROTOCOL IV 12/11/24 08:30 12/12/24 09:00 DC 12/11/24 10:39 600 MLS/HR Apixaban (EliquIS 2.5 mg) 2.5 mg BID PO 12/11/24 09:00 01/10/25 08:59 12/11/24 21:27 2.5 MG Aspirin (Aspirin 81mg Ec Tab) 81 mg DAILY PO 12/11/24 09:00 01/10/25 08:59 12/11/24 08:44 81 MG Atorvastatin Calcium (LIPItor 20MG) 20 mg HS PO 12/10/24 21:00 01/09/25 20:59 12/11/24 21:27 20 MG Benzonatate (Tessalon 100mg Caps) 200 mg ONCE STAT PO 12/09/24 21:08 12/09/24 21:10 DC 12/09/24 21:17 200 MG Budesonide (Pulmicort 0.5 Mg/2ml) 0.5 mg BIDRESP IH 12/10/24 09:00 12/10/24 09:22 DC Budesonide (Pulmicort 0.5 Mg/2ml) 0.5 mg BIDRESP IH 12/10/24 18:00 01/09/25 17:59 12/12/24 06:42 0.5 MG Ceftriaxone Sodium (Rocephin 2gm Inj) 2 gm DAILY08 IVPB 12/10/24 08:00 12/12/24 10:39 DC 12/11/24 08:44 2 GM Ceftriaxone Sodium (Rocephin 2gm Inj) 2 gm DAILY08 IVPB 12/12/24 11:00 12/22/24 10:59 Dextrose (D50w) 50 ml AD PRN IV HYPOGLYCEMIA PROTOCOL 12/11/24 08:00 12/12/24 10:53 DC Dextrose (D50w) 50 ml AD PRN IV HYPOGLYCEMIA PROTOCOL 12/12/24 11:00 01/11/25 10:59 UNV Docusate Sodium (COLace 100MG CAP) 100 mg BID PRN PO CONSTIPATION 12/10/24 02:00 12/12/24 10:53 DC Doxycycline Hyclate 250 ml @ 125 mls/hr Q12H IV 12/10/24 02:00 12/20/24 01:59 12/12/24 02:35 125 MLS/HR Enoxaparin Sodium (Lovenox) 40 mg DAILY SQ 12/10/24 21:00 12/11/24 08:32 DC 12/10/24 21:40 40 MG Furosemide (LASix 40MG VIAL) 40 mg Q12H IV 12/10/24 09:00 01/09/25 08:59 12/11/24 21:28 40 MG Glucagon (Glucagon 1mg Kit) 1 mg AD PRN IM HYPOGLYCEMIA PROTOCOL 12/11/24 08:00 12/12/24 10:53 DC Glucagon (Glucagon 1mg Kit) 1 mg AD PRN IM HYPOGLYCEMIA PROTOCOL 12/12/24 11:00 01/11/25 10:59 UNV Guaifenesin (RobiTUSSin SUGAR-FREE 100 MG/ 5 ML UDCUP) 400 mg Q4HPRN PRN PO COUGH/COLD SYMPTOMS 12/10/24 09:00 01/09/25 08:59 12/10/24 15:08 400 MG Hydralazine HCl (APRESOLine 20MG INJ) 10 mg Q6H PRN IV SBP GREATER THAN 180 12/10/24 02:00 12/12/24 10:53 DC Insulin Human Regular (humuLIN R 100 UNIT/ML 3ML) INSULIN SLIDING SCAL... ACHS SQ 12/10/24 07:30 12/12/24 10:53 DC Insulin Human Regular (humuLIN R 100 UNIT/ML 3ML) INSULIN SLIDING SCAL... ACHS SQ 12/11/24 11:30 12/11/24 07:59 DC Insulin Human Regular (humuLIN R 100 UNIT/ML 3ML) INSULIN SLIDING SCAL... ACHS SQ 12/12/24 11:30 01/11/25 11:29 UNV Ipratropium [place] (AtrovENT UD) 0.5 mg Q6H IH 12/10/24 09:00 12/10/24 09:22 DC Ipratropium [place] (AtrovENT UD) 0.5 mg [id number] IH 12/10/24 12:00 01/09/25 08:59 12/12/24 06:42 0.5 MG Lactulose (Constulose 20gm/ 30ml Udcup) 20 gm Q6H PRN PO CONSTIPATION 12/10/24 02:00 12/12/24 10:53 DC Levothyroxine Sodium (SYNTHroid 50MCG TAB) 50 mcg SYN PO 12/11/24 06:30 01/10/25 06:29 12/12/24 05:32 50 MCG Magnesium Sulfate 50 ml @ 0 mls/hr PROTOCOL IV 12/12/24 09:30 12/12/24 09:05 DC Magnesium Sulfate 50 ml @ 0 mls/hr PROTOCOL PRN IV MAGNESIUM PROTOCOL 12/11/24 03:30 01/10/25 03:29 Magnesium Sulfate 50 ml @ 0 mls/hr PROTOCOL PRN IV other 12/11/24 08:00 12/11/24 07:59 DC Magnesium Sulfate 50 ml @ 0 mls/hr PROTOCOL PRN IV other 12/12/24 11:00 01/11/25 10:59 UNV Metoprolol Succinate (TopROL XL) 100 mg BID PO 12/10/24 21:00 01/09/25 20:59 12/11/24 21:27 100 MG Metoprolol Tartrate (loprESSOR) 5 mg Q6H PRN IV INCREASED HEART RATE 12/11/24 23:30 01/10/25 23:29 12/12/24 10:10 5 MG Ondansetron HCl (zoFRAN 4MG INJ) 4 mg Q6H PRN IVP NAUSEA/VOMITING 12/10/24 02:00 12/12/24 10:53 DC Pantoprazole Sodium (PROTonix 40MG TAB) 40 mg DAILY PO 12/10/24 09:00 12/12/24 10:53 DC 12/11/24 08:44 40 MG Potassium Chloride 100 ml @ 100 mls/hr AD PRN IV POTASSIUM PROTOCOL 12/11/24 03:30 12/11/24 06:59 DC Potassium Chloride 100 ml @ 100 mls/hr AD PRN IV POTASSIUM PROTOCOL 12/11/24 03:30 12/11/24 07:55 DC Potassium Chloride 100 ml @ 100 mls/hr AD PRN IV POTASSIUM PROTOCOL 12/11/24 08:00 01/10/25 07:59 Potassium Chloride 100 ml @ 100 mls/hr AD PRN IV POTASSIUM PROTOCOL 12/12/24 11:00 01/11/25 10:59 UNV Potassium Chloride (K-Dur 10meq Sr Tab) 10 meq AD PRN PO POTASSIUM PROTOCOL 12/11/24 07:30 01/10/25 03:29 12/12/24 03:07 10 MEQ Potassium Chloride (K-Dur/Klor-Con 20meq) 10 meq AD PRN PO POTASSIUM PROTOCOL 12/11/24 03:30 12/11/24 07:01 DC Potassium Chloride (K-Dur/Klor-Con 20meq) 10 meq AD PRN PO POTASSIUM PROTOCOL 12/11/24 08:00 12/11/24 07:59 DC Potassium Chloride (K-Dur/Klor-Con 20meq) 10 meq AD PRN PO POTASSIUM PROTOCOL 12/12/24 11:00 01/11/25 10:59 UNV Potassium Chloride (KCl 10% Elixir 20meq/15ml) 10 meq AD PRN PO POTASSIUM PROTOCOL 12/11/24 03:30 12/11/24 07:55 DC Potassium Chloride (KCl 10% Elixir 20meq/15ml) 10 meq AD PRN PO POTASSIUM PROTOCOL 12/11/24 08:00 01/10/25 07:59 Potassium Chloride (KCl 10% Elixir 20meq/15ml) 10 meq AD PRN PO POTASSIUM PROTOCOL 12/12/24 11:00 01/11/25 10:59 UNV Sodium Chloride 1,000 ml @ 1,000 mls/hr Q1H IV 12/09/24 20:30 12/09/24 22:30 DC 12/09/24 21:39 1,000 MLS/HR Sodium Chloride 1,000 ml @ 1,000 mls/hr Q1H STAT IV 12/09/24 20:00 12/09/24 20:06 DC Temazepam (restORIL 15 MG CAP) 15 mg HS PRN PO INSOMNIA/SLEEP 12/10/24 02:00 12/12/24 10:53 DC DIAGNOSTICS / RADIOLOGY: [ ] ASSESSMENT: Acute hypoxemic respiratory failure, POA New onset AFib RVR POA CHF systolic with acute exacerbation, POA, BNP 2100 Acute sepsis without septic shock (tachycardia, tachypnea, fever, lactic acidosis) Elevated D-dimer, rule out PE and DVT Persistent acute cough Acute complicated cystitis, POA Acute metabolic encephalopathy, POA Dehydration Acute on chronic kidney disease stage 3b, GFR 44 Uncontrolled Diabetes mellitus with hyperglycemia POA GERD Pulmonary fibrotic changes upper lobes infiltrate per chest CT Lactic acidosis Elevated troponin PLAN: -cardiology consultation pending continuous telemetry monitoring -Monitor respiratory status closely. -Continue oxygen therapy as needed. Titrate oxygen prn to keep Spo2>/+=92%. -Pulmicort & Atrovent scheduled. -Albuterol PRN. -RT to provide IS and education on use. -Robitussin DM as needed cough. -Solu-Medrol IV daily. -Continue antibiotic therapy: Doxycycline IV and Rocephin IV -Fluid restrictions a 1200 mL. -strict I&Os. -daily weights. -Tylenol as needed fever/ pain. -Glucometer checks AC & HS needed with insulin regular sliding scale coverage as needed. -Blood pressure checks every 4 hours and as needed. Home medication reconciled by PAN HELPER 12/12/2024 -labetalol IV as needed systolic blood pressure greater than 160 -AM labs: monitor renal and liver function, monitor electrolytes and replace PRN -GI and DVT prophylaxis -Additional plan and assessment are listed below. Home medications reconciled by PAN HELPER 12/10/2024 Venous Doppler negative for DVT 2D echo EF 40 to 45% V/Q scan negative Chest x-ray negative Head CT negative Chest CT pulmonary fibrotic changes bilateral upper lobe mild superimposed infiltrate. GERD Venous Doppler negative for DVT Patient receive two doses of 40 mEq of potassium Patient refused Lexiscan 12/12/2024 New onset AFib RVR , Cardizem drip discontinued continue metoprolol Patient transferred to PCCU ATTESTATION BY PHYSICIAN I have seen and examined the patient. I reviewed the documentation, medical decision making, and treatment plan as noted by the mid-level provider above. I agree with the findings and plan of care. RHONDA VU MD, KATAR[employer]YNA [employer] December 12, 2024 11:04
[2024-12-12] MEDS: INSULIN humuLIN R 100 UNIT/ML 3ML SQ SCH (11:30)
--- NOTE | 2024-12-12 11:30 | NUR ---
0900 HOURS PATIENT REFUSED LEXISCAN PORTION DUE TO PERSISTENT COUGH, LEXISCAN WAS NOT ADMINISTERED ONLY FIRST ISOTOPE DOSE FOR RESTING IMAGES.
[2024-12-12] MEDS ORDERED: DIGOxin 250 MCG/ML 2ML AMP IV SCH (16:00)
[2024-12-12] MEDS: DIGOxin 250 MCG/ML 2ML AMP IV ONE (16:41)
[2024-12-13] VITALS (17 sets, daily range): BP systolic 116–158; BP diastolic 59–90; PULSE 78–104; RESP 14–24; TEMP 97.6–98.8; O2SAT 95–99
[2024-12-13 04:46] LABS: BASOPHILS # (AUTO) 0.04 K/uL (0.00-0.20); BASOPHILS % (AUTO) 0.5 % (0.0-5.0); EOSINOPHILS # (AUTO) 0.27 K/uL (0.00-0.70); EOSINOPHILS % (AUTO) 3.3 % (0.0-8.0); HEMATOCRIT 37.7 % (36-48); IMMATURE GRANULOCYTE ABSOLUTE 0.02 K/uL (0-1); LYMPHOCYTES # (AUTO) 2.4 K/uL (1.0-4.8); LYMPHOCYTES % (AUTO) 29.2 % (21.0-51.0); MEAN CORPUSCULAR HEMOGLOBIN 27.5 pg (27.0-33.0); MEAN CORPUSCULAR HGB CONC 31.6 g/dL (32.0-36.0); MEAN CORPUSCULAR VOLUME 87.3 fL (79-99); MONOCYTES # (AUTO) 0.7 K/uL (0.1-1.0); MONOCYTES % (AUTO) 8.6 % (3.0-13.0); NEUTROPHILS # (AUTO) 4.8 K/uL (1.8-7.7); NEUTROPHILS % (AUTO) 58.2 % (40.0-77.0); PLATELET COUNT (AUTO) 192 K/uL (130-400); RED BLOOD CELL COUNT(AUTO) 4.32 MIL/uL (4.00-5.50); RED CELL DISTRIBUTION WIDTH 14.5 % (11.0-15.5); WHITE BLOOD COUNT (AUTO) 8.2 K/uL (4.8-10.8)
[2024-12-13 05:06] LABS: ALBUMIN 3.1 g/dL (3.5-5.0); BILIRUBIN,TOTAL 0.5 mg/dL (0.2-1.0); CREATININE 0.9 mg/dL (0.5-1.0); MAGNESIUM 1.6 mg/dL (1.80-2.40); TOTAL PROTEIN, SERUM 6.4 g/dL (6.0-8.3)
[2024-12-13] MEDS: MAGNESIUM 2GM PREMIX 50ML 50 ML IV PRN (08:37)
--- NOTE | 2024-12-13 09:11 | PN ---
. This is an 84-year-old female with longstanding persistent atypical atrial flutter and hypertension. She was admitted 12/10/2024 due to altered mental status and persistent cough. She was found to be in atypical atrial flutter with rapid ventricular response with ventricular rates up to the 180s. Echocardiogram 12/10/2024 showed an ejection fraction of 40-45% with severely dilated left atrium. This is in contrast to an ejection fraction of 50-55% in October 2024. She was placed on IV amiodarone which was discontinued yesterday. She is currently in atypical atrial flutter with ventricular rates in the 80s to 90s. Yesterday afternoon at 4:00 p.m. ventricular rates were in the 130s. She was scheduled for Lexiscan yesterday but declined the exam due to persistent cough. Her most recent blood pressure is 143/59. White blood count 8.2, hemoglobin 11.9, hematocrit 37.7, platelets 192, creatinine 0.9, potassium 4.0, magnesium is 1.6. She offers no new cardiac complaints. She denies palpitations, shortness or breath, dizziness or chest pain. She states that her cough is mildly improved. On exam, she is in no acute distress, irregularly irregular rhythm, expiratory rhonchi, no lower extremity edema is noted. Assessment: 1. Longstanding persistent atypical atrial flutter. 2. 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 3. Hypertension. Plan: 1. She has longstanding persistent atrial flutter with an EKG in August 2023 showing a arrhythmia. The last EKG showing sinus rhythm was in January of 2020. We will continue to focus on a rate control strategy. 2. We will titrate metoprolol succinate to 125 mg twice daily. Target ventricular rates in the 70s to 100s. 3. Continue Eliquis 2.5 mg twice daily. 4. Recommend ambulation with physical therapy. Monitor heart rates with ambulation. 5. She is pending Lexiscan today. 6. If the Lexiscan is negative for myocardial ischemia and she is adequately rate controlled, she can be discharged home. 7. Recommend outpatient monitor technician x5 days to assess her rate control. Plan to repeat the echocardiogram in 4-6 weeks. Vitals/Labs Vital Signs Date Time Temp Pulse Resp B/P (MAP) Pulse Ox O2 Delivery O2 Flow Rate FiO2 5//25 08:00 98.1 94 18 143/59 95 Room Air 0.0 12/13/24 06:39 21 Laboratory Tests 12/13/24 04:09 PINA SONG December 13, 2024 09:11
--- NOTE | 2024-12-13 09:28 | NUR ---
Spoke with NM and was informed that stress test will be rescheduled for tomorrow morning. Cris. Alexa CHARLES notified.
[2024-12-13] MEDS: metOPROLol sucCINATE 25 MG TAB.SR.24H PO SCH (09:36)
--- NOTE | 2024-12-13 09:46 | NUR ---
Spoke with NM and was informed that stress test will be completed today instead of tomorrow.
[2024-12-13] MEDS ORDERED: MAGNESIUM 2GM PREMIX 50ML 50 ML IV SCH (10:00)
--- NOTE | 2024-12-13 11:49 | PN ---
[facility] PROGRESS NOTE Date of Service: December 13, 2024 Time of Service: 11:[address] Vu SUBJECTIVE: [ 12/09/24 Ms. Omer is a 84-year-old female with a history of AFib on Eliquis and hypertension who presented to [facility] ED for evaluation of cough and confusion x2 days. The patient was in brought by son for concern of a the cough developing to pneumonia. As per son the last time the patient had a cough she developed pneumonia. The son also reported the patient been recently getting "forgetful but today has gotten worse. He states that the patient had a bowel movement in her under worse which is unusual for her. He stated the BM was formed, the patient did not have diarrhea. ED provider request patient be admitted with the diagnosis of altered mental status, pneumonitis, and elevated troponin. I assessed the patient at bedside in room hallway B. the patient's breathing was even, unlabored, in no distress. She had some episodes of cough. Patient is not oriented to day nor reason for the visit. She reports that she is here because her "legs had a seizure". The patient denied chest pain, shortness of breath, any other pain, problem or concern. I informed the patient and son of labs, diagnostics, and plan of care. They verbalized understanding and are in agreement with the plan. Plan and assessment as listed below. 12/10/24 patient was seen by nurse practitioner physician during rounding in emergency department in room ED 9. Nurse practitioner reviewed all the radiology chest x-ray was negative head CT negative chest CT showed pulmonary fibrotic changes bilateral upper lobe via superimposed infiltrate. GERD. Patient's D-dimer came back highly elevated. Venous Dopplers was negative for DVT. V/Q scan was already performed we are pending bleeding. 2D echo is pending. Patient's BNP is 2100. Patient continues on furosemide 40 mg IV push q.12 hours. Troponin 89 patient denies any chest pain, nausea, vomiting. Patient is wheezing on auscultation. At this moment we will continue monitoring patient a.m. labs 12/11/24 patient was seen by nurse practitioner and physician during rounding in room 310. 2D echo showed EF 40 to 45% left ventricular cavity size is normal. IVC is dilated and collapses less than 50% with inspiration. There is moderate mitral and tricuspid valve regurgitation. No pericardial effusion. V/Q scan was negative for PE. BNP 1510. Also at night RN guarded home from tele of the patient 10 beats V-tach with a AFib in 130 at 2:44 a.m.. DOCTOR OF RADIOLOGY on-call was notify and patient's metoprolol was started. Consulting Solution Manager was consulted. We are pending facility engineer recommendations at this moment. Patient was also found to be in AFib RVR. RN contact facility engineer via the phone and patient was placed on Cardizem drip. Patient will be transferred to PCCU. We will continue to monitor patient in the meantime. A.m. labs 12/12/24 patient was seen by nurse practitioner and physician during rounding in room 217. Patient was just downgraded to PCCU. Amiodarone drip was discontinued as per Cardiology early a.m.. Patient continues to be AFib/a flut ter between 110 and 140s. V/Q scan was performed was negative for PE. 2D echo EF 40 to 45%. Venous Doppler negative for DVT. Patient also supposed to undergo Lexiscan but refused due to persistent cough at the moment. Robitussin was ordered. At this moment we are pending further recommendations from the facility engineer. We will continue to monitor patient in the meantime. A.m. labs. 12/13/24 patient was seen by nurse practitioner and physician during rounding. Patient was seen by facility engineer and they recommended Lexiscan stress test. Yesterday patient refused tests due to persistent cough but today she would like to repeated. Nurse was able to contact nuclear medicine and they will perform that test today. As per [facility] patient to be discharged home if stress test negative. They also recommended continue Eliquis 2.5 mg b.i.d., metoprolol succinate 125 p.o. b.i.d.. 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 At this moment we will continue to monitor patient in the meantime. A.m. labs] REVIEW OF SYSTEMS 12-point ROS reviewed with patient. All pertinent positives mentioned above. Otherwise negative, noncontributory, non-pertinent. PHYSICAL EXAM GENERAL APPEARANCE: The patient is awake, alert, oriented to person, place, in no acute cardiopulmonary distress. NEUROLOGICAL: Cranial nerves II-XII grossly intact. Motor is 5/5 in bilateral upper and lower extremities proximal to distal. No sensory deficits. HEENT: Face is symmetric. Pupils are equal and reactive. Extraocular movements are intact. NECK: Supple. No JVD. No thyromegaly. No submental, submandibular, pre- /postauricular, occipital or supraclavicular lymphadenopathy. CHEST: Normal chest expansion. No Telemetry. LUNGS: Absence of any rales, rhonchi . No wheezing CARDIOVASCULAR: Regular. S1 and S2 normal. No appreciable rubs, murmurs or gallops. ABDOMEN: Soft, nontender, and nondistended. There is no rebound, voluntary guarding, or rigidity. : Deferred. No Balbuena. EXTREMITIES: Non-edematous and not cyanotic. No clubbing. Good capillary refill. SKIN: No skin breakdown. Vital Signs (last 8hr) Date Time Temp Pulse Resp B/P (MAP) Pulse Ox O2 Delivery O2 Flow Rate FiO2 12/13/24 11:40 97.5 92 17 116/72 97 Room Air 0.0 12/13/24 11:13 90 20 12/13/24 11:11 90 20 N/A Room Air 21 12/13/24 08:00 98.1 94 18 143/59 95 Room Air 0.0 12/13/24 06:41 81 20 12/13/24 06:39 81 20 N/A Room Air 21 12/13/24 04:00 98.2 17 134/80 97 LABS: Laboratory: Test 12/13/24 04:09 12/12/24 20:12 12/12/24 04:34 Range/Units White Blood Count 8.2 4.8-10.8 K/uL Red Blood Count 4.32 4.00-5.50 MIL/uL Hemoglobin 11.9 L 12.0-16.0 g/dL Hematocrit 37.7 36-48 % Mean Corpuscular Volume 87.3 79-99 fL Mean Corpuscular Hemoglobin 27.5 27.0-33.0 pg Mean Corpuscular Hemoglobin Concent 31.6 L 32.0-36.0 g/dL Red Cell Distribution Width 14.5 11.0-15.5 % Platelet Count 192 # 130-400 K/uL Mean Platelet Volume 12.1 H 7.5-10.5 fL Immature Granulocyte % (Auto) 0.2 0-1 % Neutrophils (%) (Auto) 58.2 40.0-77.0 % Lymphocytes (%) (Auto) 29.2 21.0-51.0 % Monocytes (%) (Auto) 8.6 3.0-13.0 % Eosinophils (%) (Auto) 3.3 0.0-8.0 % Basophils (%) (Auto) 0.5 0.0-5.0 % Neutrophils # (Auto) 4.8 1.8-7.7 K/uL Lymphocytes # (Auto) 2.4 1.0-4.8 K/uL Monocytes # (Auto) 0.7 0.1-1.0 K/uL Eosinophils # (Auto) 0.27 0.00-0.70 K/uL Basophils # (Auto) 0.04 0.00-0.20 K/uL Absolute Immature Granulocyte (auto 0.02 0-1 K/uL Nucleated Red Blood Cells 0.0 0.0-0.19 % Sodium Level 141 136-145 mmol/L Potassium Level 4.0 3.5-5.1 mmol/L Chloride Level 104 101-111 mmol/L Carbon Dioxide Level 28 21-32 mmol/L Blood Urea Nitrogen 17 7-18 mg/dL Creatinine 0.9 0.5-1.0 mg/dL Glomerular Filtration Rate Calc 63 >90 mL/min Random Glucose 105 70-105 mg/dL Total Calcium 8.6 8.5-10.1 mg/dL Magnesium Level 1.60 L 1.80-2.40 mg/dL Total Bilirubin 0.5 0.2-1.0 mg/dL Aspartate Amino Transf (AST/SGOT) 20 10-37 U/L Alanine Aminotransferase (ALT/SGPT) 13 # 12-78 U/L Alkaline Phosphatase 69 50-136 U/L B-Type Natriuretic Peptide 595 H 0-100 pg/mL Total Protein 6.4 6.0-8.3 g/dL Albumin 3.1 L 3.5-5.0 g/dL Whole Blood Glucose 96 70-110 MG/DL Segmented Neutrophils % 68 40-70 % Band Neutrophils % 1 0-2 % Lymphocytes % (Manual) 18 L 22-44 % Monocytes % (Manual) 10 H 2-9 % Eosinophils % (Manual) 1 1-6 % Basophils % (Manual) 2 0-2 % Differential Comment MANUAL DIFFERENTIAL White Cell Morphology Comment REACTIVE LYMPHS 1+ Platelet Morphology Comment ADEQUATE Red Blood Cell Morphology ANISO 1+ Current Medications Medications (Trade) Dose Ordered Sig/Artie Route PRN Reason Start Time Stop Time Status Last Admin Dose Admin Acetaminophen (TYLenol 325MG TAB) 650 mg Q6H PRN PO FEVER/MILD PAIN LEVEL 1-3 12/10/24 02:00 12/12/24 10:53 DC 12/10/24 15:07 650 MG Acetaminophen (TYLenol 650MG SUPPOSITORY) 650 mg Q6H PRN RC FEVER / MILD PAIN 1-3 IF NPO 12/10/24 02:00 12/12/24 10:53 DC Albuterol Sulfate (Proventil 0.083% 2.5mg/3ml) 2.5 mg Q6H PRN IH SHORTNESS OF BREATH 12/10/24 09:00 12/11/24 08:50 DC 12/10/24 23:00 2.5 MG Amiodarone HCl 150 mg/Dextrose 100 ml @ 0 mls/hr PROTOCOL IV 12/11/24 08:30 12/12/24 09:00 DC 12/11/24 10:39 600 MLS/HR Apixaban (EliquIS 2.5 mg) 2.5 mg BID PO 12/11/24 09:00 01/10/25 08:59 12/13/24 09:37 2.5 MG Aspirin (Aspirin 81mg Ec Tab) 81 mg DAILY PO 12/11/24 09:00 01/10/25 08:59 12/13/24 09:37 81 MG Atorvastatin Calcium (LIPItor 20MG) 20 mg HS PO 12/10/24 21:00 01/09/25 20:59 12/12/24 20:03 20 MG Benzonatate (Tessalon 100mg Caps) 200 mg ONCE STAT PO 12/09/24 21:08 12/09/24 21:10 DC 12/09/24 21:17 200 MG Budesonide (Pulmicort 0.5 Mg/2ml) 0.5 mg BIDRESP IH 12/10/24 09:00 12/10/24 09:22 DC Budesonide (Pulmicort 0.5 Mg/2ml) 0.5 mg BIDRESP IH 12/10/24 18:00 01/09/25 17:59 12/13/24 06:40 0.5 MG Ceftriaxone Sodium (Rocephin 2gm Inj) 2 gm DAILY08 IVPB 12/10/24 08:00 12/12/24 10:39 DC 12/11/24 08:44 2 GM Ceftriaxone Sodium (Rocephin 2gm Inj) 2 gm DAILY08 IVPB 12/12/24 11:00 12/22/24 10:59 12/13/24 08:37 2 GM Dextrose (D50w) 50 ml AD PRN IV HYPOGLYCEMIA PROTOCOL 12/11/24 08:00 12/12/24 10:53 DC Dextrose (D50w) 50 ml AD PRN IV HYPOGLYCEMIA PROTOCOL 12/12/24 11:00 01/11/25 10:59 Digoxin (LANOxin 250 MCG/ ML 2ML AMP) 250 mcg ONCE IV 12/12/24 16:00 12/12/24 15:53 DC Docusate Sodium (COLace 100MG CAP) 100 mg BID PRN PO CONSTIPATION 12/10/24 02:00 12/12/24 10:53 DC Doxycycline Hyclate 250 ml @ 125 mls/hr Q12H IV 12/10/24 02:00 12/20/24 01:59 12/13/24 02:23 125 MLS/HR Enoxaparin Sodium (Lovenox) 40 mg DAILY SQ 12/10/24 21:00 12/11/24 08:32 DC 12/10/24 21:40 40 MG Furosemide (LASix 40MG VIAL) 40 mg Q12H IV 12/10/24 09:00 01/09/25 08:59 12/13/24 08:37 40 MG Glucagon (Glucagon 1mg Kit) 1 mg AD PRN IM HYPOGLYCEMIA PROTOCOL 12/11/24 08:00 12/12/24 10:53 DC Glucagon (Glucagon 1mg Kit) 1 mg AD PRN IM HYPOGLYCEMIA PROTOCOL 12/12/24 11:00 01/11/25 10:59 Guaifenesin (RobiTUSSin SUGAR-FREE 100 MG/ 5 ML UDCUP) 400 mg Q4HPRN PRN PO COUGH/COLD SYMPTOMS 12/10/24 09:00 01/09/25 08:59 12/10/24 15:08 400 MG Hydralazine HCl (APRESOLine 20MG INJ) 10 mg Q6H PRN IV SBP GREATER THAN 180 12/10/24 02:00 12/12/24 10:53 DC Insulin Human Regular (humuLIN R 100 UNIT/ML 3ML) INSULIN SLIDING SCAL... ACHS SQ 12/10/24 07:30 12/12/24 10:53 DC Insulin Human Regular (humuLIN R 100 UNIT/ML 3ML) INSULIN SLIDING SCAL... ACHS SQ 12/11/24 11:30 12/11/24 07:59 DC Insulin Human Regular (humuLIN R 100 UNIT/ML 3ML) INSULIN SLIDING SCAL... ACHS SQ 12/12/24 11:30 01/11/25 11:29 Ipratropium [place] (AtrovENT UD) 0.5 mg Q6H IH 12/10/24 09:00 12/10/24 09:22 DC Ipratropium [place] (AtrovENT UD) 0.5 mg [id number] IH 12/10/24 12:00 01/09/25 08:59 12/13/24 11:13 0.5 MG Lactulose (Constulose 20gm/ 30ml Udcup) 20 gm Q6H PRN PO CONSTIPATION 12/10/24 02:00 12/12/24 10:53 DC Levothyroxine Sodium (SYNTHroid 50MCG TAB) 50 mcg SYN PO 12/11/24 06:30 01/10/25 06:29 12/13/24 06:36 50 MCG Magnesium Sulfate 50 ml @ 0 mls/hr PROTOCOL IV 12/12/24 09:30 12/12/24 09:05 DC Magnesium Sulfate 50 ml @ 0 mls/hr PROTOCOL IV 12/13/24 10:00 01/12/25 09:59 Magnesium Sulfate 50 ml @ 0 mls/hr PROTOCOL PRN IV MAGNESIUM PROTOCOL 12/11/24 03:30 01/10/25 03:29 12/13/24 08:37 25 MLS/HR Magnesium Sulfate 50 ml @ 0 mls/hr PROTOCOL PRN IV other 12/11/24 08:00 12/11/24 07:59 DC Magnesium Sulfate 50 ml @ 0 mls/hr PROTOCOL PRN IV other 12/12/24 11:00 12/12/24 10:56 DC Metoprolol Succinate (TopROL XL) 25 mg BID PO 12/13/24 09:00 01/12/25 08:59 12/13/24 09:36 25 MG Metoprolol Succinate (TopROL XL) 100 mg BID PO 12/10/24 21:00 12/13/24 08:57 DC 12/12/24 20:03 100 MG Metoprolol Tartrate (loprESSOR) 5 mg Q6H PRN IV INCREASED HEART RATE 12/11/24 23:30 01/10/25 23:29 12/12/24 10:10 5 MG Ondansetron HCl (zoFRAN 4MG INJ) 4 mg Q6H PRN IVP NAUSEA/VOMITING 12/10/24 02:00 12/12/24 10:53 DC Pantoprazole Sodium (PROTonix 40MG TAB) 40 mg DAILY PO 12/10/24 09:00 12/12/24 10:53 DC 12/11/24 08:44 40 MG Potassium Chloride 100 ml @ 100 mls/hr AD PRN IV POTASSIUM PROTOCOL 12/11/24 03:30 12/11/24 06:59 DC Potassium Chloride 100 ml @ 100 mls/hr AD PRN IV POTASSIUM PROTOCOL 12/11/24 03:30 12/11/24 07:55 DC Potassium Chloride 100 ml @ 100 mls/hr AD PRN IV POTASSIUM PROTOCOL 12/11/24 08:00 01/10/25 07:59 Potassium Chloride 100 ml @ 100 mls/hr AD PRN IV POTASSIUM PROTOCOL 12/12/24 11:00 12/12/24 10:56 DC Potassium Chloride (K-Dur 10meq Sr Tab) 10 meq AD PRN PO POTASSIUM PROTOCOL 12/11/24 07:30 01/10/25 03:29 12/12/24 03:07 10 MEQ Potassium Chloride (K-Dur/Klor-Con 20meq) 10 meq AD PRN PO POTASSIUM PROTOCOL 12/11/24 03:30 12/11/24 07:01 DC Potassium Chloride (K-Dur/Klor-Con 20meq) 10 meq AD PRN PO POTASSIUM PROTOCOL 12/11/24 08:00 12/11/24 07:59 DC Potassium Chloride (K-Dur/Klor-Con 20meq) 10 meq AD PRN PO POTASSIUM PROTOCOL 12/12/24 11:00 12/12/24 10:56 DC Potassium Chloride (KCl 10% Elixir 20meq/15ml) 10 meq AD PRN PO POTASSIUM PROTOCOL 12/11/24 03:30 12/11/24 07:55 DC Potassium Chloride (KCl 10% Elixir 20meq/15ml) 10 meq AD PRN PO POTASSIUM PROTOCOL 12/11/24 08:00 01/10/25 07:59 Potassium Chloride (KCl 10% Elixir 20meq/15ml) 10 meq AD PRN PO POTASSIUM PROTOCOL 12/12/24 11:00 12/12/24 10:56 DC Sodium Chloride 1,000 ml @ 1,000 mls/hr Q1H IV 12/09/24 20:30 12/09/24 22:30 DC 12/09/24 21:39 1,000 MLS/HR Sodium Chloride 1,000 ml @ 1,000 mls/hr Q1H STAT IV 12/09/24 20:00 12/09/24 20:06 DC Temazepam (restORIL 15 MG CAP) 15 mg HS PRN PO INSOMNIA/SLEEP 12/10/24 02:00 12/12/24 10:53 DC DIAGNOSTICS / RADIOLOGY: [ ] ASSESSMENT: Acute hypoxemic respiratory failure, POA New onset AFib RVR POA CHF systolic with acute exacerbation, POA, BNP 2100 Acute sepsis without septic shock (tachycardia, tachypnea, fever, lactic acidosis) Elevated D-dimer, rule out PE and DVT Persistent acute cough Acute complicated cystitis, POA Acute metabolic encephalopathy, POA Dehydration Acute on chronic kidney disease stage 3b, GFR 44 Uncontrolled Diabetes mellitus with hyperglycemia POA GERD Pulmonary fibrotic changes upper lobes infiltrate per chest CT Lactic acidosis Elevated troponin PLAN: -as per cardiology continue metoprolol succinate 125 mg p.o. b.i.d. and Eliquis 2.5 mg b.i.d.. If Lexiscan negative patient is cleared to be discharged home. 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 -Continue oxygen therapy as needed. Titrate oxygen prn to keep Spo2>/+=92%. -Pulmicort & Atrovent scheduled. -Albuterol PRN. -RT to provide IS and education on use. -Robitussin DM as needed cough. -Solu-Medrol IV daily. -Continue antibiotic therapy: Doxycycline IV and Rocephin IV -Fluid restrictions a 1200 mL. -strict I&Os. -daily weights. -Tylenol as needed fever/ pain. -Glucometer checks AC & HS needed with insulin regular sliding scale coverage as needed. -Blood pressure checks every 4 hours and as needed. Home medication reconciled by DOCTOR OF RADIOLOGY 12/12/2024 -labetalol IV as needed systolic blood pressure greater than 160 -AM labs: monitor renal and liver function, monitor electrolytes and replace PRN -GI and DVT prophylaxis -Additional plan and assessment are listed below. Home medications reconciled by DOCTOR OF RADIOLOGY 12/10/2024 Venous Doppler negative for DVT 2D echo EF 40 to 45% V/Q scan negative Chest x-ray negative Head CT negative Chest CT pulmonary fibrotic changes bilateral upper lobe mild superimposed infiltrate. GERD Venous Doppler negative for DVT Patient receive two doses of 40 mEq of potassium Patient pending Lexiscan 12/13/2024 ATTESTATION BY PHYSICIAN I have seen and examined the patient. I reviewed the documentation, medical decision making, and treatment plan as noted by the mid-level provider above. I agree with the findings and plan of care. RHONDA VU MD, KATARZYNA B MACHINE SETTER AND REPAIRER December 13, 2024 11:49
[2024-12-13] MEDS ORDERED: REGADENOSON 0.4 MG/5 ML PF SYG IVP ONE (12:57)
--- NOTE | 2024-12-13 18:22 | HMCSR ---
APPROVED REPORT Height: 5 ft 4in Weight: 126 lbs TEST INDICATIONS ELEVATED TROPONIN The imaging protocol used to acquire images was Rest Tc-99m/stress Tc-99m 2 days Consent: The procedure was explained and understood by the patient. Informerd consent was witnessed Juarez Bran RN First, low dose rest was performed then high dose stress. RESTING DATA: The resting ekg shows: Atrial Fibrillation Rest SPECT myocardial perfusion imaging was performed in supine position minutes following the intra venous injection of 10 mCi of Tc-99 Sestamibi. Time of rest injection: 07:40: Date: 12/12/2024 PHARMACOLOGIC STRESS: Pharmacologic stress test was performed by injecting regadenoson 0.4 mg IV push followed by the intra venous injection of 20 mCi of Tc-99 Sestamibi. Time of stress injection: 13:00: Date: 12/13/2024 Heart Rate at time of stress injection: 85 bpm. The images were gated to evaluate regional wall motion and calculate left ventricular ejection fracti on. STRESS DETAILS Reason for Termination: Infusion complete Stress Symptoms: Dyspnea, Cough Max HR Achieved: 98 bpm % of APMHR Achieved: 85 Max Blood Pressure: 150/64 mmHg Stress ECG: Atrial Fibrillation Conclusion No infarct There is some apical thinning during stress with partial improvement on resting studies. This may re present a normal variant apical cleft although mild apical ischemia can not be excluded. LV ejection fraction of 60% Normal LV size at rest and stress Normal LV wall motion Increased lung uptake
[2024-12-14] VITALS (16 sets, daily range): BP systolic 109–146; BP diastolic 53–77; PULSE 80–94; RESP 14–21; TEMP 98.2–98.5; O2SAT 94–97
[2024-12-14 05:26] LABS: BASOPHILS # (AUTO) 0.05 K/uL (0.00-0.20); BASOPHILS % (AUTO) 0.5 % (0.0-5.0); HEMATOCRIT 41.3 % (36-48); IMMATURE GRANULOCYTE ABSOLUTE 0.03 K/uL (0-1); LYMPHOCYTES # (AUTO) 3.8 K/uL (1.0-4.8); LYMPHOCYTES % (AUTO) 38.4 % (21.0-51.0); MEAN CORPUSCULAR HGB CONC 32.2 g/dL (32.0-36.0); MEAN CORPUSCULAR VOLUME 86.9 fL (79-99); MONOCYTES # (AUTO) 0.9 K/uL (0.1-1.0); MONOCYTES % (AUTO) 9.1 % (3.0-13.0); NEUTROPHILS # (AUTO) 4.8 K/uL (1.8-7.7); NEUTROPHILS % (AUTO) 48.7 % (40.0-77.0); PLATELET COUNT (AUTO) 200 K/uL (130-400); RED BLOOD CELL COUNT(AUTO) 4.75 MIL/uL (4.00-5.50); RED CELL DISTRIBUTION WIDTH 14.5 % (11.0-15.5); WHITE BLOOD COUNT (AUTO) 9.9 K/uL (4.8-10.8)
[2024-12-14 05:49] LABS: ALBUMIN 3.3 g/dL (3.5-5.0); BILIRUBIN,TOTAL 0.7 mg/dL (0.2-1.0); CREATININE 0.9 mg/dL (0.5-1.0); MAGNESIUM 1.9 mg/dL (1.80-2.40); POTASSIUM 3.8 mmol/L (3.5-5.1)
--- NOTE | 2024-12-14 10:50 | NUR ---
report called to varinder on 4th floor and will take pt by w/c to room 402. dr. gardiner here and spoke to pt concerning her cardiac tests and results and advised pt that she would be following up with hadoop analyst after discharge.
--- NOTE | 2024-12-14 11:19 | PN ---
[facility] Cardiology Progress Note CARDIOLOGY PROGRESS NOTE December Problems: 1. Acute combined systolic and diastolic heart failure with a BNP level of 2100 and drop in ejection fraction from 55% to 40-45% 2. Longstanding atrial flutter with rapid ventricular response 3. Sepsis and Urinary tract infection 4. Metabolic encephalopathy 5. Acute on chronic kidney disease 6. Diabetes mellitus type 2 7. Mildly elevated troponin possibly type 2 8. Hypothyroidism Blood pressure is 120-140 systolic heart rate is in the 80s. White count is 9.9 hemoglobin 13 platelet count [id number]. Potassium 3.8 BUN 18 creatinine 0.9. The patient continues on aspirin apixaban 2.5 mg b.i.d. atorvastatin antibiotics including Rocephin and doxycycline IV furosemide 40 q.12 hours insulin scale levothyroxine metoprolol succinate 25 mg b.i.d.. Amiodarone medication has been discontinued. The patient did have an elevated D-dimer but had negative V/Q lung scan. Lexiscan Cardiolite stress test was completed yesterday and showed some apical thinning with partial improvement this may represent a normal variant apical cleft the lobe mild apical ischemia can not be excluded. Ejection fraction by this method was 60%. Given the low risk findings I would not recommend cardiac catheterization at this time. We will continue with medical management. I suspect the troponin elevation was a type 2 GA in the setting of sepsis and that the drop in ejection fraction was probably a tachycardia mediated cardiomyopathy in the setting of atrial flutter with rapid rate. We will continue with her current regimen today. The patient is resting comfortably denies any pain or shortness of breath. She has been transferred to the 4th floor. She can be discharged home when she has completed antibiotics. She can follow up with Dr. Bandar soliz and Dr. Ngo as an outpatient. MOUNIKA SOTO MD December 14, 2024 11:19
[2024-12-14] MEDS ORDERED: METO25TA3 PO (11:40)
[2024-12-14] MEDS ORDERED: CEFD300C3 PO (11:42)
--- NOTE | 2024-12-14 11:44 | DS ---
Discharge Summary Hospital Course Summary: Ms. Omer is a 84-year-old female with a history of AFib on Eliquis and hypertension who presented to [facility] ED for evaluation of cough and confusion x2 days. The patient was in brought by son for concern of a the cough developing to pneumonia. As per son the last time the patient had a cough she developed pneumonia. The son also reported the patient been recently getting "forgetful but today has gotten worse. He states that the patient had a bowel movement in her under worse which is unusual for her. He stated the BM was formed, the patient did not have diarrhea. ED provider request patient be admitted with the diagnosis of altered mental status, pneumonitis, and elevated troponin. I assessed the patient at bedside in room hallway B. the patient's breathing was even, unlabored, in no distress. She had some episodes of cough. Patient is not oriented to day nor reason for the visit. She reports that she is here because her "legs had a seizure". The patient denied chest pain, shortness of breath, any other pain, problem or concern. I informed the patient and son of labs, diagnostics, and plan of care. They verbalized understanding and are in agreement with the plan. Plan and assessment as listed below. 12/09/24 Ms. Omer is a 84-year-old female with a history of AFib on Eliquis and hypertension who presented to [facility] ED for evaluation of cough and confusion x2 days. The patient was in brought by son for concern of a the cough developing to pneumonia. As per son the last time the patient had a cough she developed pneumonia. The son also reported the patient been recently getting "forgetful but today has gotten worse. He states that the patient had a bowel movement in her under worse which is unusual for her. He stated the BM was formed, the patient did not have diarrhea. ED provider request patient be admitted with the diagnosis of altered mental status, pneumonitis, and elevated troponin. I assessed the patient at bedside in room hallway B. the patient's breathing was even, unlabored, in no distress. She had some episodes of cough. Patient is not oriented to day nor reason for the visit. She reports that she is here because her "legs had a seizure". The patient denied chest pain, shortness of breath, any other pain, problem or concern. I informed the patient and son of labs, diagnostics, and plan of care. They verbalized understanding and are in agreement with the plan. Plan and assessment as listed below. 12/10/24 patient was seen by nurse practitioner physician during rounding in emergency department in room ED 9. Nurse practitioner reviewed all the radiology chest x-ray was negative head CT negative chest CT showed pulmonary fi brotic changes bilateral upper lobe via superimposed infiltrate. GERD. Patient's D-dimer came back highly elevated. Venous Dopplers was negative for DVT. V/Q scan was already performed we are pending bleeding. 2D echo is pending. Patient's BNP is 2100. Patient continues on furosemide 40 mg IV push q.12 hours. Troponin 89 patient denies any chest pain, nausea, vomiting. Pat ient is wheezing on auscultation. At this moment we will continue monitoring patient a.m. labs 12/11/24 patient was seen by nurse practitioner and physician during rounding in room 310. 2D echo showed EF 40 to 45% left ventricular cavity size is normal. IVC is dilated and collapses less than 50% with inspiration. There is moderate mitral and tricuspid valve regurgitation. No pericardial effusion. V/Q scan was negative for PE. BNP 1510. Also at night RN guarded home from tele of the patient 10 beats V-tach with a AFib in 130 at 2:44 a.m.. MACHINE II COREMAKER on-call was notify and patient's metoprolol was started. Study Specialist was consulted. We are pending validation manager recommendations at this moment. Patient was also found to be in AFib RVR. RN contact validation manager via the phone and patient was placed on Cardizem drip. Patient will be transferred to PCCU. We will continue to monitor patient in the meantime. A.m. labs 12/12/24 patient was seen by nurse practitioner and physician during rounding in room 217. Patient was just downgraded to PCCU. Amiodarone drip was discontinued as per Cardiology early a.m.. Patient continues to be AFib/a flutter between 110 and 140s. V/Q scan was performed was negative for PE. 2D echo EF 40 to 45%. Venous Doppler negative for DVT. Patient also supposed to undergo Lexiscan but refused due to persistent cough at the moment. Robitussin was ordered. At this moment we are pending further recommendations from the validation manager. We will continue to monitor patient in the meantime. A.m. labs. 12/13/24 patient was seen by nurse practitioner and physician during rounding. Patient was seen by validation manager and they recommended Lexiscan stress test. Yesterday patient refused tests due to persistent cough but today she would like to repeated. Nurse was able to contact nuclear medicine and they will perform that test today. As per [facility] patient to be discharged home if stress test negative. They also recommended continue Eliquis 2.5 mg b.i.d., metoprolol succinate 125 p.o. b.i.d.. Once patient will be discharged follow-up outpatient for compliance monitor x5 days and repeat 2D echo in 4 to 6 weeks. At this moment we will continue to monitor patient in the meantime. A.m. labs] Nuclear cardiac stress test reviewed, plan for the patient to be discharged home today. 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): Cardiology Assessment/Plan: Final diagnosis Acute hypoxemic respiratory failure, POA New onset AFib RVR POA CHF systolic with acute exacerbation, POA, BNP 2100 Acute sepsis without septic shock (tachycardia, tachypnea, fever, lactic acidosis) Elevated D-dimer, rule out PE and DVT Persistent acute cough likely acute bronchitis Acute complicated cystitis, POA Acute metabolic encephalopathy, POA Dehydration Acute on chronic kidney disease stage 3b, GFR 44 Uncontrolled Diabetes mellitus with hyperglycemia POA GERD Pulmonary fibrotic changes upper lobes infiltrate per chest CT Lactic acidosis Elevated troponin Discharge Instructions: The patient to be discharged home today, to follow up with primary care physician as an outpatient and return to hospital if condition changes. Agreed for plan and understood the information provided Home Medications: Active Scripts Levothyroxine Sodium (Levothyroxine) 50 Mcg Capsule, 1 CAP PO DAILY for 30 Days, #30 CAP 0 Refills Prov:CYNTHIA THIBODEAUX INSOLE LIP TURNER 10/15/24 Furosemide (Lasix 40Mg Tab) 40 Mg Tablet, 1 TAB PO BID for 30 Days, #60 TAB 0 Refills Prov:CYNTHIA THIBODEAUX INSOLE LIP TURNER 10/15/24 Metoprolol Succinate (Toprol Xl) 50 Mg Tab.er.24h, 100 MG PO BID, #60 TAB 1 Refill Prov:HIMANSHU WANG MD 09/03/23 Apixaban (Eliquis) 2.5 Mg Tablet, 2.5 MG PO BID, #60 TAB 0 Refills Prov:HIMANSHU WANG MD 09/03/23 Reported Medications Aspirin (Aspirin EC) 81 Mg Tablet.dr, 1 TAB PO DAILY for 30 Days, #30 TAB 0 Refills 10/11/24 Atorvastatin Calcium (Atorvastatin Calcium) 20 Mg Tablet, 20 MG PO HS, TAB 08/28/23 Discontinued Scripts Oseltamivir Phosphate (Tamiflu) 75 Mg Cap, 1 CAP PO BID for 1 Day, #2 CAP 0 Refills Prov:CYNTHIA THIBODEAUX 10/15/24 Time spent arranging discharge: 31-60 minutes RHONDA VU MD December 14, 2024 11:44
--- NOTE | 2024-12-14 14:35 | NUR ---
PT TAKEN TO PRIVATE VEHICLE BY W/C AND WAS ACCOMPANIED BY SON. PT IN NO APPARENT DISTRESS AND APPEARS COMFORTABLE.
--- NOTE | 2024-12-17 14:48 | NUR ---
Transitional Phone Call Attempted to call twice, left message [phone] and no return call.
== END 2024-12-14 14:43 | disposition home health service (06) | DRG 871 ==
LOC: EDH 19:45 → EDHIP 12-10 00:22 → 3BH 12-10 21:25 → 2CH 12-11 10:55
PROVIDERS: ADMIT Internal Medicine; ATTEND Internal Medicine
PROC: 4A02XM4 Measurement of Cardiac Total Activity, External Approach (ICD-10-PCS; principal; 2024-12-12)
PROC: 3E073KZ Introduction of Other Diagnostic Substance into Coronary Artery, Percutaneous Approach (ICD-10-PCS; 2024-12-12)
DX: A41.9 Sepsis, unspecified organism (principal); G93.41 Metabolic encephalopathy; J96.01 Acute respiratory failure with hypoxia; I50.41 Acute combined systolic (congestive) and diastolic (congestive) heart failure; E87.20 Acidosis, unspecified; I13.0 Hypertensive heart and chronic kidney disease with heart failure and stage 1 through stage 4 chronic kidney disease, or unspecified chronic kidney disease; N30.00 Acute cystitis without hematuria; I42.8 Other cardiomyopathies; I48.4 Atypical atrial flutter; E11.65 Type 2 diabetes mellitus with hyperglycemia; E86.0 Dehydration; N18.32 Chronic kidney disease, stage 3b; E11.22 Type 2 diabetes mellitus with diabetic chronic kidney disease; E03.9 Hypothyroidism, unspecified; I08.1 Rheumatic disorders of both mitral and tricuspid valves; I48.91 Unspecified atrial fibrillation; J20.9 Acute bronchitis, unspecified; K21.9 Gastro-esophageal reflux disease without esophagitis; Z79.01 Long term (current) use of anticoagulants; Z79.899 Other long term (current) drug therapy
CPT/HCPCS: 36415; 36600; 70450; 71045; 71250; 78452; 78582; 80048; 80053; 80305; 81001; 82140; 82435; 82803; 82947; 82948; 83036; 83605; 83735; 83880; 84100; 84132; 84295; 84443; 84484; 85018; 85025; 85027; 85378; 87040; 87635; 87804; 92610; 93005; 93017; 93308; 93356; 93970; 94640; 94664; 99285; A9500; A9540; A9558; G0378; J0282; J0696; J1160; J1650; J1938; J2785; J3475; J3490; J7060